=== PATIENT | male | born 1935 | race Caucasian/White ===

== ENCOUNTER 2016-04-07 11:55 | Inpatient (IN) | payer MEDICARE, OTHER ==
[2016-04-07] MEDS: NALOXONE 0.4 MG/ML 1 ML VIAL IV STA ×2 (12:45→13:15)
[2016-04-07] MEDS ORDERED: SODIUM CHLORIDE 0.9% 1,000 ML IV STA (13:08)
[2016-04-07] MEDS ORDERED: SODIUM CHLORIDE 0.9% 500 ML IV STA (13:08)
[2016-04-07] MEDS ORDERED: NALOXONE 0.4 MG/ML 10 ML VIAL IVP ONE (13:23)
--- NOTE | 2016-04-07 13:32 | ED ---
General Adult HPI - General Chief complaint: Weakness Stated complaint: Weakness, Fall Time Seen by Provider: 04/07/16 12:26 Source: patient, EMS, RN notes reviewed Mode of arrival: EMS Limitations: no limitations - History of Present Illness Initial comments: Chief complaint history of present illness this is an 81-year-old male was brought emergency room by EMS. They were called to the house twice by him because he slipped out of his wheelchair. They put him back in the wheelchair first time. The second time he decided come the hospital. They denied giving him any narcotics. Around emergency room the patient was very somnolent. Eyes pinpoint. He received IV Narcan which did significantly improve his mental status. But his initial complaints to EMS was weakness. The patient lives by himself he's recently moved here from another area. No old charts are available. And at this time the patient is not fully capable of answering all questions. The patient states he lives in this general area eventually did mention [place]. We called [facility] who sent his records he been there several times he was living in a [place] that general area. EKG from the date while in hospital in October of last year similar to today's EKG. Labs were essentially within normal limits there is they are here. - Related Data Home Medications Medication Instructions Recorded Confirmed Unable To Assess [Unable to Assess] 04/07/16 04/07/16 Allergies Allergy/AdvReac Type Severity Reaction Status Date / Time No Known Allergies Allergy Verified 04/07/16 12:43 Review of Systems ROS Statement: Those systems with pertinent positive or pertinent negative responses have been documented in the HPI. ROS Other: All systems not noted in ROS Statement are negative. Past Medical History Past Medical History: Unable to Obtain Additional Past Medical History / Comment(s): Parkinsons History of Any Multi-Drug Resistant Organisms: Unobtainable Past Surgical History: Unable to Obtain Past Psychological History: Unable to Obtain Smoking Status: Unknown if ever smoked Past Alcohol Use History: Unable to Obtain Past Drug Use History: Unable to Obtain General Exam Limitations: no limitations Course Vital Signs 04/07/16 12:11 Temperature 97.4 F L Pulse Rate 62 Respiratory 18 Rate Blood Pressure 164/79 O2 Sat by Pulse 97 Oximetry Medical Decision Making - Medical Decision Making Medical decision making patient's white count 7.2 hemoglobin 12 hematocrit 38 and INR 1.2, potassium 4.3, BUN 18 creatinine 0.6 GFR greater than 60. Glucose 112. Urine shows 57 white cells large leuk esterase positive drug triage positive for benzodiazepines. The patient's eyes were pinpoint he was given IV Narcan on 2 occasions both of which made him more alert. CT the brain was done and reviewed by radiologist entire report was reviewed his final impression is age-related atrophy and chronic small vessel ischemic changes but acute intracranial processes seen at this time. As read by Dr. Flores X-ray of the chest was done and reviewed by radiologist his impression is a slightly elevated right hemidiaphragm is present. There is no focal airspace opacity, pleural effusion, or pneumothorax seen. Cardiac silhouette size is within the normal limits with atherosclerotic change in the aortic knob. The osseous structures are demineralized. There is a multilevel spurring in the lower thoracic spine. Impression; no acute cardiopulmonary process. As read by Dr. posada Patient is more alert now after IV hydration and Narcan. Urine drug triage was negative for opiates though. Was positive benzodiazepines. Patient denies taking any pills whatsoever left alone benzodiazepines. Patient had IV Levaquin started. Easily arousable states he's not in pain states he knows where he is, "" in the hospital. - Lab Data Result diagrams: 04/07/16 12:45 04/07/16 12:45 Lab Results 04/07/16 04/07/16 04/07/16 Range/Units 12:45 12:45 12:45 WBC 7.2 (3.8-10.6) k/uL RBC 3.81 L (4.30-5.90) m/uL Hgb 12.5 L (13.0-17.5) gm/dL Hct 38.4 L (39.0-53.0) % MCV 100.9 H (80.0-100.0) fL MCH 32.9 (25.0-35.0) pg MCHC 32.6 (31.0-37.0) g/dL RDW 12.4 (11.5-15.5) % Plt Count 167 (150-450) k/uL Neutrophils % 79 % Lymphocytes % 13 % Monocytes % 7 % Eosinophils % 0 % Basophils % 0 % Neutrophils # 5.7 (1.3-7.7) k/uL Lymphocytes # 0.9 L (1.0-4.8) k/uL Monocytes # 0.5 (0-1.0) k/uL Eosinophils # 0.0 (0-0.7) k/uL Basophils # 0.0 (0-0.2) k/uL PT (9.0-12.0) sec INR (<1.1) APTT (22.0-30.0) sec Sodium 143 (137-145) mmol/L Potassium 4.3 (3.5-5.1) mmol/L Chloride 106 (98-107) mmol/L Carbon Dioxide 27 (22-30) mmol/L Anion Gap 10 mmol/L BUN 18 (9-20) mg/dL Creatinine 0.60 L (0.66-1.25) mg/dL Est GFR (MDRD) Af Amer >60 (>60 ml/min/1.73 sqM) Est GFR (MDRD) Non-Af >60 (>60 ml/min/1.73 sqM) Glucose 112 H (74-99) mg/dL Plasma Lactic Acid Ever (0.7-2.0) mmol/L Calcium 10.1 (8.4-10.2) mg/dL Magnesium 2.0 (1.6-2.3) mg/dL Total Bilirubin 0.8 (0.2-1.3) mg/dL AST 27 (17-59) U/L ALT 33 (21-72) U/L Alkaline Phosphatase 98 (38-126) U/L Total Creatine Kinase 155 (55-170) U/L CK-MB (CK-2) 4.6 H* (0.0-2.4) ng/mL CK-MB (CK-2) Rel Index 3.0 Troponin I <0.012 (0.000-0.034) ng/mL Total Protein 6.8 (6.3-8.2) g/dL Albumin 3.8 (3.5-5.0) g/dL TSH 0.488 (0.465-4.680) mIU/L Urine Color Urine Appearance (Clear) Urine pH (5.0-8.0) Ur Specific [place] (1.001-1.035) Urine Protein (Negative) Urine Glucose (UA) (Negative) Urine Ketones (Negative) Urine Blood (Negative) Urine Nitrate (Negative) Urine Bilirubin (Negative) Urine Urobilinogen (<2.0) mg/dL Ur Leukocyte Esterase (Negative) Urine WBC (0-5) /hpf Urine Bacteria (None) /hpf Urine Mucus (None) /hpf Urine Opiates Screen (NotDetected) Ur Oxycodone Screen (NotDetected) Urine Methadone Screen (NotDetected) Ur Propoxyphene Screen (NotDetected) Ur Barbiturates Screen (NotDetected) U Tricyclic Antidepress (NotDetected) Ur Phencyclidine Scrn (NotDetected) Ur Amphetamines Screen (NotDetected) U Methamphetamines Scrn (NotDetected) U Benzodiazepines Scrn (NotDetected) Urine Cocaine Screen (NotDetected) U Marijuana (THC) Screen (NotDetected) 04/07/16 04/07/16 04/07/16 Range/Units 12:45 12:45 13:50 WBC (3.8-10.6) k/uL RBC (4.30-5.90) m/uL Hgb (13.0-17.5) gm/dL Hct (39.0-53.0) % MCV (80.0-100.0) fL MCH (25.0-35.0) pg MCHC (31.0-37.0) g/dL RDW (11.5-15.5) % Plt Count (150-450) k/uL Neutrophils % % Lymphocytes % % Monocytes % % Eosinophils % % Basophils % % Neutrophils # (1.3-7.7) k/uL Lymphocytes # (1.0-4.8) k/uL Monocytes # (0-1.0) k/uL Eosinophils # (0-0.7) k/uL Basophils # (0-0.2) k/uL PT 11.6 (9.0-12.0) sec INR 1.2 (<1.1) APTT 27.3 (22.0-30.0) sec Sodium (137-145) mmol/L Potassium (3.5-5.1) mmol/L Chloride (98-107) mmol/L Carbon Dioxide (22-30) mmol/L Anion Gap mmol/L BUN (9-20) mg/dL Creatinine (0.66-1.25) mg/dL Est GFR (MDRD) Af Amer (>60 ml/min/1.73 sqM) Est GFR (MDRD) Non-Af (>60 ml/min/1.73 sqM) Glucose (74-99) mg/dL Plasma Lactic Acid Ever 1.4 (0.7-2.0) mmol/L Calcium (8.4-10.2) mg/dL Magnesium (1.6-2.3) mg/dL Total Bilirubin (0.2-1.3) mg/dL AST (17-59) U/L ALT (21-72) U/L Alkaline Phosphatase (38-126) U/L Total Creatine Kinase (55-170) U/L CK-MB (CK-2) (0.0-2.4) ng/mL CK-MB (CK-2) Rel Index Troponin I (0.000-0.034) ng/mL Total Protein (6.3-8.2) g/dL Albumin (3.5-5.0) g/dL TSH (0.465-4.680) mIU/L Urine Color Urine Appearance (Clear) Urine pH (5.0-8.0) Ur Specific [place] (1.001-1.035) Urine Protein (Negative) Urine Glucose (UA) (Negative) Urine Ketones (Negative) Urine Blood (Negative) Urine Nitrate (Negative) Urine Bilirubin (Negative) Urine Urobilinogen (<2.0) mg/dL Ur Leukocyte Esterase (Negative) Urine WBC (0-5) /hpf Urine Bacteria (None) /hpf Urine Mucus (None) /hpf Urine Opiates Screen Not Detected (NotDetected) Ur Oxycodone Screen Not Detected (NotDetected) Urine Methadone Screen Not Detected (NotDetected) Ur Propoxyphene Screen Not Detected (NotDetected) Ur Barbiturates Screen Not Detected (NotDetected) U Tricyclic Antidepress Not Detected (NotDetected) Ur Phencyclidine Scrn Not Detected (NotDetected) Ur Amphetamines Screen Not Detected (NotDetected) U Methamphetamines Scrn Not Detected (NotDetected) U Benzodiazepines Scrn Detected H (NotDetected) Urine Cocaine Screen Not Detected (NotDetected) U Marijuana (THC) Screen Not Detected (NotDetected) 04/07/16 Range/Units 13:50 WBC (3.8-10.6) k/uL RBC (4.30-5.90) m/uL Hgb (13.0-17.5) gm/dL Hct (39.0-53.0) % MCV (80.0-100.0) fL MCH (25.0-35.0) pg MCHC (31.0-37.0) g/dL RDW (11.5-15.5) % Plt Count (150-450) k/uL Neutrophils % % Lymphocytes % % Monocytes % % Eosinophils % % Basophils % % Neutrophils # (1.3-7.7) k/uL Lymphocytes # (1.0-4.8) k/uL Monocytes # (0-1.0) k/uL Eosinophils # (0-0.7) k/uL Basophils # (0-0.2) k/uL PT (9.0-12.0) sec INR (<1.1) APTT (22.0-30.0) sec Sodium (137-145) mmol/L Potassium (3.5-5.1) mmol/L Chloride (98-107) mmol/L Carbon Dioxide (22-30) mmol/L Anion Gap mmol/L BUN (9-20) mg/dL Creatinine (0.66-1.25) mg/dL Est GFR (MDRD) Af Amer (>60 ml/min/1.73 sqM) Est GFR (MDRD) Non-Af (>60 ml/min/1.73 sqM) Glucose (74-99) mg/dL Plasma Lactic Acid Ever (0.7-2.0) mmol/L Calcium (8.4-10.2) mg/dL Magnesium (1.6-2.3) mg/dL Total Bilirubin (0.2-1.3) mg/dL AST (17-59) U/L ALT (21-72) U/L Alkaline Phosphatase (38-126) U/L Total Creatine Kinase (55-170) U/L CK-MB (CK-2) (0.0-2.4) ng/mL CK-MB (CK-2) Rel Index Troponin I (0.000-0.034) ng/mL Total Protein (6.3-8.2) g/dL Albumin (3.5-5.0) g/dL TSH (0.465-4.680) mIU/L Urine Color Yellow Urine Appearance Cloudy (Clear) Urine pH 7.0 (5.0-8.0) Ur Specific [place] 1.012 (1.001-1.035) Urine Protein Negative (Negative) Urine Glucose (UA) Negative (Negative) Urine Ketones Trace H (Negative) Urine Blood Negative (Negative) Urine Nitrate Positive (Negative) Urine Bilirubin Negative (Negative) Urine Urobilinogen <2.0 (<2.0) mg/dL Ur Leukocyte Esterase Large H (Negative) Urine WBC 57 H (0-5) /hpf Urine Bacteria Rare H (None) /hpf Urine Mucus Rare H (None) /hpf Urine Opiates Screen (NotDetected) Ur Oxycodone Screen (NotDetected) Urine Methadone Screen (NotDetected) Ur Propoxyphene Screen (NotDetected) Ur Barbiturates Screen (NotDetected) U Tricyclic Antidepress (NotDetected) Ur Phencyclidine Scrn (NotDetected) Ur Amphetamines Screen (NotDetected) U Methamphetamines Scrn (NotDetected) U Benzodiazepines Scrn (NotDetected) Urine Cocaine Screen (NotDetected) U Marijuana (THC) Screen (NotDetected) Disposition Clinical Impression: Urinary tract infection, History of Parkinson's disease, Weakness generalized Disposition: ADMITTED IP TO THIS [facility] Condition: Fair
--- NOTE | 2016-04-07 13:36 | XR ---
EXAMINATION TYPE: XR chest 2V DATE OF EXAM: 04/07/2016 1:31 PM COMPARISON: NONE HISTORY: Weakness and falls TECHNIQUE: Frontal and lateral views of the chest are obtained. FINDINGS: Slightly elevated right hemidiaphragm is present. There is no focal air space opacity, ple ural effusion, or pneumothorax seen. The cardiac silhouette size is within normal limits with athero sclerotic change in aortic knob. The osseous structures are demineralized. There is multilevel spur ring in the lower thoracic spine. IMPRESSION: No acute cardiopulmonary process.
[2016-04-07 13:39] LABS: Basophils % (A) 0 %; CH 32.9; CHCM 32.7; Eosinophils % (A) 0 %; HCT 38.4 % (39.0-53.0); HDW 2.16; HGB 12.5 gm/dL (13.0-17.5); Luc # (Auto) 0.11; Luc % (Auto) 2; Lymphocytes # (A) 0.9 k/uL (1.0-4.8); Lymphocytes % (A) 13 %; MCH 32.9 pg (25.0-35.0); MCHC 32.6 g/dL (31.0-37.0); MCV 100.9 fL (80.0-100.0); Mean Platelet Volume 7.3; Monocytes # (A) 0.5 k/uL (0-1.0); Monocytes % (A) 7 %; Neutrophils # (A) 5.7 k/uL (1.3-7.7); Neutrophils % (A) 79 %; RBC 3.81 m/uL (4.30-5.90); RDW 12.4 % (11.5-15.5); WBC 7.2 k/uL (3.8-10.6); WBC (Perox) 7.82
[2016-04-07 13:48] LABS: INR 1.2 (<1.1); Partial Thromboplastin Time 27.3 sec (22.0-30.0); Prothrombin Time 11.6 sec (9.0-12.0)
[2016-04-07 13:55] LABS: ALT 33 U/L (21-72); AST 27 U/L (17-59); Alkaline Phosphatase 98 U/L (38-126); Anion Gap 10 mmol/L; Blood Urea Nitrogen 18 mg/dL (9-20); Calcium 10.1 mg/dL (8.4-10.2); Carbon Dioxide 27 mmol/L (22-30); Chloride 106 mmol/L (98-107); Glucose 112 mg/dL (74-99); Non-African American GFR(MDRD) >60 (>60 ml/min/1.73 sqM); Sodium 143 mmol/L (137-145); Total Bilirubin 0.8 mg/dL (0.2-1.3); Total Protein 6.8 g/dL (6.3-8.2)
[2016-04-07 13:56] LABS: Potassium 4.3 mmol/L (3.5-5.1)
[2016-04-07 14:09] LABS: Creatine Kinase 155 U/L (55-170)
[2016-04-07 14:16] LABS: Appearance,Urine Cloudy (Clear); Bacteria,Urine Rare /hpf; Bilirubin,Urine Negative (Negative); Glucose,Urine (UA) Negative (Negative); Ketones,Urine Trace (Negative); Leukocyte Esterase,Urine Large (Negative); Mucus,Urine Rare /hpf; Nitrite,Urine Positive (Negative); Particle Count 7415; Protein,Urine Negative (Negative); Specific Gravity,Urine 1.012 (1.001-1.035); UA Billing (MACRO vs. MICRO) MICRO; Urobilinogen,Urine <2.0 mg/dL (<2.0); WBC,Urine 57 /hpf (0-5)
--- NOTE | 2016-04-07 14:19 | CT ---
EXAMINATION TYPE: CT brain wo con DATE OF EXAM: 04/07/2016 2:14 PM COMPARISON: NONE HISTORY: Altered LOC CT DLP: 2017.[address] of the brain was performed. Patient motion limits evaluation. The ventricles, basal cisterns and sulci overlying the cerebral convexities demonstrate mild to moder ate enlargement. There is no evidence for intracranial hemorrhage or sulcal effacement. There is decreased attenuation about the periventricular white matter and deep white matter of both c erebral hemispheres, compatible with chronic small vessel ischemia. Differential diagnosis does inclu de demyelination. No mass effects are seen.No midline shift. Osseous calvarium is intact. If symptoms persist consider MRI. IMPRESSION: 1. Age related atrophic and chronic small vessel ischemic change without acute intracranial process s een at this time.
[2016-04-07 14:23] LABS: Troponin I <0.012 ng/mL (0.000-0.034)
[2016-04-07 14:26] LABS: Creatine Kinase MB 4.6 ng/mL (0.0-2.4)
[2016-04-07] MEDS ORDERED: LEVOFLOXACIN 500MG-D5W PMX 500 MG in DEXTROSE/WATER 1 100ML.BAG IVPB STA (14:44)
[2016-04-07] MEDS ORDERED: NALOXONE 0.4 MG/ML 1 ML VIAL IV PRN (14:50)
[2016-04-07] MEDS: ACETAMINOPHEN TAB 325 MG TAB PO PRN (15:28)
[2016-04-07] MEDS: SODIUM CHLORIDE 0.9% 1,000 ML IV SCH (19:52)
[2016-04-08] MEDS: ACETAMINOPHEN TAB 325 MG TAB PO PRN (04:04)
[2016-04-08 07:59] LABS: Basophils % (A) 0 %; CHCM 32.6; Eosinophils % (A) 1 %; HDW 2.09; HGB 11.7 gm/dL (13.0-17.5); Luc # (Auto) 0.18; Luc % (Auto) 3; Lymphocytes # (A) 1.6 k/uL (1.0-4.8); Lymphocytes % (A) 23 %; MCHC 32.4 g/dL (31.0-37.0); MCV 101.7 fL (80.0-100.0); Mean Platelet Volume 7.3; Monocytes # (A) 0.6 k/uL (0-1.0); Monocytes % (A) 9 %; Neutrophils # (A) 4.6 k/uL (1.3-7.7); Neutrophils % (A) 65 %; RBC 3.54 m/uL (4.30-5.90); RDW 12.4 % (11.5-15.5); WBC 7.1 k/uL (3.8-10.6); WBC (Perox) 7.59
[2016-04-08 08:19] LABS: ALT 33 U/L (21-72); AST 27 U/L (17-59); Alkaline Phosphatase 90 U/L (38-126); Anion Gap 8 mmol/L; Blood Urea Nitrogen 13 mg/dL (9-20); Calcium 9.7 mg/dL (8.4-10.2); Carbon Dioxide 26 mmol/L (22-30); Chloride 107 mmol/L (98-107); Glucose 109 mg/dL (74-99); Non-African American GFR(MDRD) >60 (>60 ml/min/1.73 sqM); Potassium 3.9 mmol/L (3.5-5.1); Sodium 141 mmol/L (137-145); Total Bilirubin 0.9 mg/dL (0.2-1.3)
[2016-04-08] MEDS: SODIUM CHLORIDE 0.9% 1,000 ML IV SCH ×3 (08:24→16:21)
[2016-04-08] MEDS: PANTOPRAZOLE 40 MG/10 ML VIAL IV SCH (08:24)
[2016-04-08] MEDS: CARBIDOPA-LEVODOPA 25-100 MG 1 EACH TAB PO SCH ×3 (13:10→20:01)
[2016-04-08] MEDS: CARBIDOPA-LEVODOPA 10-100 MG 1 EACH TAB PO SCH (13:10)
[2016-04-08 14:04] VITALS: BMI 22.4
[2016-04-08] MEDS: SERTRALINE 25 MG TAB PO SCH (20:01)
--- NOTE | 2016-04-08 21:11 | HP ---
DATE OF ADMISSION: 04/07/2016 CHIEF COMPLAINT: Weakness and a fall. HISTORY OF PRESENT ILLNESS: Mr. Ponce is an 81-year-old male with a past medical history of Parkinson disease, hypertension, was brought in by the EMS after having a fall at the house. The patient states that he was trying to take a wheelchair out of his closet and then he slipped and fell and states that he was not able to get help until 6 in the morning. He states he was lying there for a few hours. Patient denies having any loss of consciousness. No syncopal episodes. He states that he has Parkinson's disease and his gait has been affected and so had a fall. Patient denies having any fevers, chills, or rigors. No complaints of burning, micturition. No hematuria, dysuria. He denies having any abdominal pain, nausea, vomiting, or diarrhea. The patient denies having any chest pain. Patient denies having any shortness of breath. Patient states that his Parkinson's disease has been causing problems for him and that he has problems with his gait. On review of systems: All 13 review of systems are done and negative except for ones mentioned in the HPI. Past medical history significant for Parkinson's disease. ALLERGIES: No known drug allergies. Patient's home medications: 1. Tylenol 325 mg 650 p.o. q8h p.r.n. for pain. 2. Tramadol 50 mg 1 tablet q.6 hours p.r.n. for pain. 3. Flomax 0.4 mg p.o. daily. 4. Milk of magnesia. 5. Glucosamine Chondroitin 2 tablets p.o. daily. 6. Colace 100 mg p.o. b.i.d. 7. Carbidopa, levodopa 2500 mg p.o. 4 times a day. 8. ( ) 100 mg p.o. daily. 9. Amlodipine 2.5 mg p.o. daily. 10. Xanax 0.5 mg p.o. daily. 11. Zoloft 75 mg p.o. q.h.s. Surgical history positive for hernia repair. SOCIAL HISTORY: Denies having any history of smoking or alcohol abuse. FAMILY HISTORY: Denies having any history of hypertension or diabetes. On examination, patient's vital signs temperature 98.3, heart rate 63, respiratory rate is 16, blood pressure 100/69, saturating at 96% on room air. GENERAL EXAMINATION: Elderly male lying in bed, appears to be no acute distress. Has some tremors. When he was trying to eat his food ( ). HEAD: Atraumatic, normocephalic. EYES: Pupils, round, and reactive to light. NECK: No JVD. No thyromegaly. CARDIOVASCULAR: S1, S2 are heard. LUNGS: Bilateral breath sounds are positive. No wheeze or crackles. ABDOMEN: Soft, nontender. Bowel sounds positive. EXTREMITIES: No edema. No cyanosis, no clubbing. Peripheral pulses are felt. IT TECHNICAL SUPPORT SPECIALIST: Alert, awake, oriented x3. Has tremors. No focal deficits. PSYCHIATRIC: Appropriate mood and affect. Patient's labs: White count of 7.2, hemoglobin 11.7, platelets 155, sodium 141, potassium 3.9, chloride 107, bicarb 26, BUN 13, creatinine 0.59, urinary tract examination shows trace ketones, positive for nitrites and large leukocyte esterase and 57 WBCs. Patient also had a CT of the head showing no acute process but small vessel ischemic changes and a chest x-ray showing no acute cardiopulmonary process. ASSESSMENT AND PLAN: 1. Generalized weakness can be secondary to urinary tract infection. 2. Fall can be secondary to his weakness/Parkinson disease. 3. History of Parkinson's disease. 4. History of hypertension. 5. History of gastroesophageal reflux disease. 6. History of anxiety, depression unspecified. 7. Benign prostatic hypertrophy. PLAN: The plan is to continue the patient on IV fluids, continue with levofloxacin. We will resume his home medications and further recommendations to follow depending on the progress of the patient.
[2016-04-08] MEDS: LEVOFLOXACIN 500 MG TAB PO SCH (21:23)
[2016-04-09 07:21] LABS: Basophils % (A) 0 %; CHCM 32.8; Eosinophils # (A) 0.1 k/uL (0-0.7); Eosinophils % (A) 2 %; HCT 36.9 % (39.0-53.0); HDW 2.12; Luc # (Auto) 0.18; Luc % (Auto) 2; Lymphocytes # (A) 1.9 k/uL (1.0-4.8); Lymphocytes % (A) 22 %; MCH 32.9 pg (25.0-35.0); MCHC 32.5 g/dL (31.0-37.0); MCV 101.2 fL (80.0-100.0); Mean Platelet Volume 7.5; Monocytes # (A) 0.6 k/uL (0-1.0); Monocytes % (A) 7 %; Neutrophils # (A) 5.7 k/uL (1.3-7.7); Neutrophils % (A) 66 %; RBC 3.64 m/uL (4.30-5.90); RDW 12.5 % (11.5-15.5); WBC 8.6 k/uL (3.8-10.6); WBC (Perox) 9.03
[2016-04-09 08:04] LABS: Anion Gap 8 mmol/L; Blood Urea Nitrogen 11 mg/dL (9-20); Calcium 9.7 mg/dL (8.4-10.2); Carbon Dioxide 26 mmol/L (22-30); Chloride 105 mmol/L (98-107); Glucose 110 mg/dL (74-99); Non-African American GFR(MDRD) >60 (>60 ml/min/1.73 sqM); Sodium 139 mmol/L (137-145)
[2016-04-09] MEDS: amLODIPine 2.5 MG TAB PO SCH (08:37)
[2016-04-09] MEDS: PANTOPRAZOLE 40 MG/10 ML VIAL IV SCH (08:37)
[2016-04-09] MEDS: CARBIDOPA-LEVODOPA 10-100 MG 1 EACH TAB PO SCH (08:37)
[2016-04-09] MEDS: CARBIDOPA-LEVODOPA 25-100 MG 1 EACH TAB PO SCH ×4 (08:38→22:44)
[2016-04-09] MEDS: SODIUM CHLORIDE 0.9% 1,000 ML IV SCH ×2 (08:38→22:44)
[2016-04-09] MEDS: TAMSULOSIN 0.4 MG CAP.ER.24H PO SCH (08:38)
[2016-04-09] MEDS: ACETAMINOPHEN TAB 325 MG TAB PO PRN (16:13)
[2016-04-09] MEDS: LEVOFLOXACIN 500 MG TAB PO SCH (22:44)
[2016-04-09] MEDS: SERTRALINE 25 MG TAB PO SCH (22:44)
[2016-04-10] MEDS: SODIUM CHLORIDE 0.9% 1,000 ML IV SCH (03:40)
[2016-04-10] MEDS: ACETAMINOPHEN TAB 325 MG TAB PO PRN (07:31)
[2016-04-10] MEDS: CARBIDOPA-LEVODOPA 25-100 MG 1 EACH TAB PO SCH ×4 (07:32→21:31)
[2016-04-10] MEDS: amLODIPine 2.5 MG TAB PO SCH (07:32)
[2016-04-10] MEDS: PANTOPRAZOLE 40 MG/10 ML VIAL IV SCH (07:32)
[2016-04-10] MEDS: CARBIDOPA-LEVODOPA 10-100 MG 1 EACH TAB PO SCH (07:32)
[2016-04-10] MEDS: TAMSULOSIN 0.4 MG CAP.ER.24H PO SCH (07:32)
--- NOTE | 2016-04-10 16:15 | PN ---
INTERVAL HISTORY: Mr. Ponce is an 81-year-old male with a past medical history of disease, hypertension, ( ) brought into the ER by EMS after having a fall at the house. Patient was lying on the floor for a few hours before he could get some help. Patient states that he did not lose any consciousness, but it was a fall as his gait has been affected due to his Parkinson disease. Patient does have some clinical signs and symptoms of UTI and so currently being treated with Levaquin. Patient states that he feels much better today. REVIEW OF SYSTEMS: CONSTITUTIONAL: Denies having any fevers or rigors. RESPIRATORY: No cough. No difficulty in breathing. GI: No abdominal pain, nausea, vomiting, or diarrhea. : No dysuria or hematuria. The patient's medications have been reviewed. On examination, patient's vital signs temperature 98.1, heart rate 16, blood pressure 124/64, saturating at 95% on room air. GENERAL EXAMINATION: The patient is an elderly male lying in bed, appears to be no acute distress. He has some tremors. HEAD: Atraumatic, normocephalic. EYES: Pupils equal, round and reactive to light. NECK: No JVD. No thyromegaly. CARDIOVASCULAR: S1, S2 heard. LUNGS: Bilateral breath sounds are positive. No wheeze, crackles. ABDOMEN: Soft, nontender. Bowel sounds positive. EXTREMITIES: No edema. No cyanosis, no clubbing. FOOD SERVICE TEAM MEMBER: Alert, and alert, oriented x3. No focal deficits. Has tremors. PSYCHIATRIC: Appropriate mood and affect. Patient's labs: White count of 8.6, hemoglobin is 12, platelets 152. Sodium 139, potassium 4, chloride 105, bicarb 26, BUN 11, creatinine 0.56, albumin 3.1. ASSESSMENT AND PLAN: 1. Generalized weakness can be secondary to urinary tract infection. 2. Fall secondary to his weakness/Parkinson disease. 3. History of Parkinson disease. 4. History of hypertension. 5. History of Gastroesophageal reflux disease. 6. History of anxiety/depression unspecified. 7. History of benign prostatic hypertrophy. PLAN: The plan is to continue the patient on IV fluids. Continue with levofloxacin. Continue home medications and patient is back to his baseline. So would consult social services analyst for possible placement and further recommendations to follow depending on the progress of the patient.
[2016-04-10] MEDS: SERTRALINE 25 MG TAB PO SCH (21:31)
[2016-04-10] MEDS: LEVOFLOXACIN 500 MG TAB PO SCH (21:31)
--- NOTE | 2016-04-11 08:21 | PN ---
DATE OF SERVICE: 04/10/2016 INTERVAL HISTORY: Mr. Ponce is an 81-year-old male with past medical history of hypertension brought into the ER by EMS after having a fall at the house. The patient was lying on the floor for few hours before he could get some help. The patient states he did not lose any consciousness but fell as he was having gait issues due to Parkinson's disease. The patient does have clinical signs and symptoms of urinary tract infection and currently being treated with Levaquin. Today, the patient says that he feels much better today. REVIEW OF SYSTEMS: CONSTITUTIONAL: Denies having any fevers, chills, or rigors. RESPIRATORY: No cough. No difficulty in breathing. GI: No nausea, vomiting, abdominal pain or diarrhea. : No dysuria or hematuria. The patient's medications have been reviewed. On examination, the patient's vital signs temperature 98.2, heart rate 81, respiratory rate 17, blood pressure 104/59, saturating at 93% on room air. GENERAL EXAMINATION: Patient is an elderly male lying in bed, appears to be no acute distress. He has some tremors. HEAD: Atraumatic, normocephalic. EYES: Pupils equal, round and reactive to light. NECK: No JVD . No thyromegaly. CARDIOVASCULAR: S1, S2 muffled. RESPIRATORY: Bilateral breath sounds are positive. No wheeze or crackles. ABDOMEN: Soft, nontender. Bowel sounds positive. EXTREMITIES: No edema. No cyanosis. No clubbing. CENTRAL NERVOUS SYSTEM: Awake, alert and oriented times three. No focal deficits. Hand tremors. PSYCHIATRY: Appropriate mood and affect. LABS: White count of 8.6, hemoglobin 12, platelets of 152. Sodium 139, potassium 4, chloride 105, bicarb 26, BUN 11, creatinine 0.56. ASSESSMENT AND PLAN: 1. Generalized weakness secondary to urinary tract infection. 2. Fall, acute weakness/Parkinson disease. 3. History of Parkinson disease. 4. Hypertension. 5. Gastroesophageal reflux disease. 6. History of anxiety/depression unspecified. 7. History of benign prostatic hypertrophy. PLAN: The plan is to continue the patient on levofloxacin. He showed significant improvement. The patient is back to his baseline. script worker on board for possible placement and ( ) to follow depending on the progress of the patient.
[2016-04-11] MEDS: amLODIPine 2.5 MG TAB PO SCH (10:05)
[2016-04-11] MEDS: CARBIDOPA-LEVODOPA 10-100 MG 1 EACH TAB PO SCH (10:05)
[2016-04-11] MEDS: CARBIDOPA-LEVODOPA 25-100 MG 1 EACH TAB PO SCH ×4 (10:05→20:28)
[2016-04-11] MEDS: TAMSULOSIN 0.4 MG CAP.ER.24H PO SCH (10:05)
[2016-04-11] MEDS: PANTOPRAZOLE 40 MG TABLET PO SCH (10:07)
--- NOTE | 2016-04-11 11:18 | XR ---
EXAMINATION TYPE: XR shoulder complete LT DATE OF EXAM: 04/11/2016 11:02 AM COMPARISON: NONE HISTORY: 78-year-old male right shoulder pain after fall TECHNIQUE: 3 views FINDINGS: There is moderate degenerative joint space narrowing and marginal spurring at the AC joint. There is some narrowing of the subacromial space. Some bony irregularity at the greater tuberosity could refle ct underlying chronic rotator cuff tendinopathy. Minimal degenerative spurring at the inferior chetan l head. Visualized left hemithorax appears clear. No acute fracture or dislocation. IMPRESSION: 1. Some narrowing of the subacromial space. Correlate for possible underlying rotator cuff tear. 2. Moderate AC joint osteoarthrosis. 3. No acute osseous abnormality seen.
[2016-04-11 11:31] LABS: Anion Gap 10 mmol/L; Blood Urea Nitrogen 15 mg/dL (9-20); Calcium 10.3 mg/dL (8.4-10.2); Carbon Dioxide 27 mmol/L (22-30); Chloride 103 mmol/L (98-107); Glucose 135 mg/dL (74-99); Non-African American GFR(MDRD) >60 (>60 ml/min/1.73 sqM); Potassium 4.1 mmol/L (3.5-5.1); Sodium 140 mmol/L (137-145)
--- NOTE | 2016-04-11 11:48 | DS ---
DATE OF ADMISSION: 04/07/2016 DATE OF DISCHARGE: An 81-year-old admitted secondary to urinary tract infection and patient has staph aureus in the urine which is pansensitive. Patient was started on levofloxacin. Patient will be discharged on levofloxacin. Patient is complaining of left shoulder pain. Obtained a left shoulder x-ray which showed severe osteoarthritis of the A/C joint with some narrowing of the subacromial space. Possibility of underlying rotator cuff tear for which patient will need orthopedic evaluation as an outpatient. Patient is otherwise clinically doing well, was quite weak definitely. Will definitely need physical therapy and subacute rehab. Patient is not appropriate to discharge home. Patient was seen and examined on the day of discharge. Vitals are stable. PHYSICAL EXAMINATION: GENERAL: The patient is alert and oriented x3, not in any acute distress. Well developed, well nourished. HEENT: Pupils are round and equally reacting to light. EOMI. No scleral icterus. No conjunctival pallor. Normocephalic, atraumatic. No pharyngeal erythema. No thyromegaly. CARDIOVASCULAR: S1 and S2 present. No murmurs, rubs, or gallops. PULMONARY: Chest is clear to auscultation, no wheezing or crackles. ABDOMEN: Soft, nontender, nondistended, normoactive bowel sounds. No palpable organomegaly. EXTREMITIES: No cyanosis, clubbing, or pedal edema. NEUROLOGICAL: Gross neurological examination did not reveal any focal deficits. SKIN: No rashes. MUSCULOSKELETAL: As described in HPI. FINAL DIAGNOSES: 1. Generalized weakness secondary to deconditioning and urinary tract infection. Patient urinary tract infection management as mentioned above. Patient has Parkinson's with possible early Lewy Body dementia. 2. Hypertension. 3. Gastroesophageal reflux disease. 4. Anxiety, depression. 5. Benign prostatic hypertrophy. Patient will be discharged today. Please refer to my depart summary for further details of discharge. Activity as per the facility. Regular diet. Follow up with Dr. Griffith or Dr. Hui in subacute rehab. Spent greater than 35 minutes in total discharge process.
[2016-04-11] MEDS: ACETAMINOPHEN TAB 325 MG TAB PO PRN (16:04)
[2016-04-11] MEDS: SERTRALINE 25 MG TAB PO SCH (20:27)
[2016-04-11] MEDS: LEVOFLOXACIN 500 MG TAB PO SCH (20:27)
[2016-04-11 20:56] VITALS: RESP 16
[2016-04-12] MEDS: ACETAMINOPHEN TAB 325 MG TAB PO PRN ×2 (00:21→20:06)
[2016-04-12] MEDS: TAMSULOSIN 0.4 MG CAP.ER.24H PO SCH (08:09)
[2016-04-12] MEDS: amLODIPine 2.5 MG TAB PO SCH (08:10)
[2016-04-12] MEDS: CARBIDOPA-LEVODOPA 25-100 MG 1 EACH TAB PO SCH ×4 (08:10→20:07)
[2016-04-12] MEDS: PANTOPRAZOLE 40 MG TABLET PO SCH (08:10)
[2016-04-12] MEDS: CARBIDOPA-LEVODOPA 10-100 MG 1 EACH TAB PO SCH (08:10)
[2016-04-12] MEDS: LEVOFLOXACIN 500 MG TAB PO SCH (20:07)
[2016-04-12] MEDS: SERTRALINE 25 MG TAB PO SCH (20:07)
[2016-04-13] MEDS: TAMSULOSIN 0.4 MG CAP.ER.24H PO SCH (07:38)
[2016-04-13] MEDS: CARBIDOPA-LEVODOPA 10-100 MG 1 EACH TAB PO SCH (07:39)
[2016-04-13] MEDS: PANTOPRAZOLE 40 MG TABLET PO SCH (07:39)
[2016-04-13] MEDS: CARBIDOPA-LEVODOPA 25-100 MG 1 EACH TAB PO SCH ×2 (07:39→12:20)
[2016-04-13] MEDS: amLODIPine 2.5 MG TAB PO SCH (07:39)
--- NOTE | 2016-04-13 07:39 | DS ---
DATE OF ADMISSION: 04/07/2016 DATE OF DISCHARGE: The patient was discharged from my service yesterday, but patient ended up staying because of some insurance issues and placement issues to rehab. The patient is no significant change compared to yesterday. Please refer to my dictation from yesterday as prognosis. No significant change in physical exam today compared to yesterday and patient will be discharged today in stable medical condition to subacute rehab Please refer to my dictation of discharge summary from yesterday for further details.
[2016-04-13 08:17] VITALS: BP 117/66; PULSE 73; TEMP 98.3
--- NOTE | 2016-04-13 11:30 | PN ---
DATE OF SERVICE: 04/12/2016 An 81-year-old admitted with UTI with staph aureus and pansensitive. The patient is being discharged on levofloxacin. Patient does have osteoarthritis and rotator cuff tear on the left shoulder for which patient will need to follow with Orthopedic Surgery as an outpatient. Patient is supposed to go to subacute rehabilitation and awaiting subacute rehabilitation disposition. REVIEW OF SYSTEMS: CARDIOVASCULAR: No chest pain, no orthopnea, no PND, no palpitations. PULMONARY: Denied any shortness of breath. No cough or hemoptysis. GASTROINTESTINAL: No diarrhea, nausea or vomiting. No abdominal pain. Normoactive bowel sounds. NEUROLOGIC: No headaches, no weakness, no numbness. Medications were reviewed. PHYSICAL EXAMINATION: VITAL SIGNS: Temperature 97.6, pulse of 69, respiratory rate 16, blood pressure 130/70, saturating at 96% on room air. GENERAL: The patient is alert and oriented x3, not in any acute distress. Well developed, well nourished. HEENT: Pupils are round and equally reacting to light. EOMI. No scleral icterus. No conjunctival pallor. Normocephalic, atraumatic. No pharyngeal erythema. No thyromegaly. CARDIOVASCULAR: S1 and S2 present. No murmurs, rubs, or gallops. PULMONARY: Chest is clear to auscultation, no wheezing or crackles. ABDOMEN: Soft, nontender, nondistended, normoactive bowel sounds. No palpable organomegaly. MUSCULOSKELETAL: No joint swelling or deformity. EXTREMITIES: No cyanosis, clubbing, or pedal edema. NEUROLOGICAL: Gross neurological examination did not reveal any focal deficits. SKIN: No rashes. LABORATORY DATA: Basic metabolic profile essentially within normal limits. ASSESSMENT AND PLAN: 1. Generalized weakness secondary to deconditioning. 2. Hypertension. 3. Urinary tract infection. 4. Parkinson's with possibly Lewy Body dementia. 5. Gastroesophageal reflux disease. 6. Anxiety, depression. 7. Benign prostatic hypertrophy. Plan is to continue his present medications. Patient will need to go to subacute rehab. The patient was declined from [facility], although patient is not good to go home or [facility] home at this point of time. We will look for any alternative subacute rehabilitation places for his discharge. The patient was actually discharged couple days ago on the , but still did not go because of the insurance issues, placement issues and social issues.
[2016-04-13] MEDS: ACETAMINOPHEN TAB 325 MG TAB PO PRN (15:21)
--- NOTE | 2016-04-13 22:13 | DS ---
DATE OF ADMISSION: 04/07/2016 DATE OF DISCHARGE: 04/13/2016 Patient is awaiting disposition to subacute rehabilitation. Patient was declined by [facility] because of some insurance issues and Medicaid criteria. [facility] and [facility] are evaluating for appropriate disposition. Once that is figured out, patient will be discharged. Please refer to my discharge summary from a couple days ago for further details without any changes, as there are no changes since then in his medical problems and management of medical problems.
== END 2016-04-13 15:42 | DRG 690 ==
LOC: EC 11:55 → 5MS5E 14:52
PROVIDERS: ADMIT Internal Medicine; ATTEND Internal Medicine
DX: N39.0 Urinary tract infection, site not specified (principal); G31.83 Neurocognitive disorder with Lewy bodies; F02.80 Dementia in other diseases classified elsewhere, unspecified severity, without behavioral disturbance, psychotic disturbance, mood disturbance, and anxiety; I10 Essential (primary) hypertension; B95.8 Unspecified staphylococcus as the cause of diseases classified elsewhere; F32.9 Major depressive disorder, single episode, unspecified; F41.9 Anxiety disorder, unspecified; I70.0 Atherosclerosis of aorta; K21.9 Gastro-esophageal reflux disease without esophagitis; M19.90 Unspecified osteoarthritis, unspecified site; M25.70 Osteophyte, unspecified joint; N40.0 Benign prostatic hyperplasia without lower urinary tract symptoms; W01.0XXA Fall on same level from slipping, tripping and stumbling without subsequent striking against object, initial encounter; Z79.899 Other long term (current) drug therapy
CPT/HCPCS: 36415; 70450; 71020; 80048; 80053; 80306; 81001; 82550; 82553; 83605; 83735; 84443; 84484; 85025; 85610; 85730; 87077; 87086; 87186; 93005; 94760; 96361; 96365; 96375; 99285

== ENCOUNTER 2016-04-20 13:03 | Emergency (ER) | payer MEDICARE, OTHER ==
[2016-04-20 13:14] VITALS: RESP 18; TEMP 97.8
[2016-04-20] MEDS ORDERED: SODIUM CHLORIDE 0.9% 1,000 ML IV STA (13:44)
--- NOTE | 2016-04-20 13:47 | ED ---
General Adult HPI - General Chief complaint: Fall Stated complaint: Fall Time Seen by Provider: 04/20/16 13:10 Source: EMS, RN notes reviewed Mode of arrival: EMS Limitations: no limitations - History of Present Illness Initial comments: This is an 81-year-old male who presents to the emergency department after having fallen out of bed. Patient states he fell out of bed about 4:00 morning he did hit his head on the floor and he states he does not believe he lost consciousness. Patient states he had a little bit of neck pain but he believes he was just stiff from laying on the floor. Patient states lower back also is tender. Patient denies any chest pain back pain or palpitations. Patient denies any shortness of breath or difficulty breathing. Patient denies any abdominal pain. Patient denies any nausea or vomiting. Patient states he has no lower stomach pain he has no upper extremity pain either. Patient denies any recent fever or chills. - Related Data Home Medications Medication Instructions Recorded Confirmed Acetaminophen Tab [Tylenol] 650 mg PO Q8H PRN 04/07/16 04/20/16 Carbidopa-Levodopa 10-100 mg 1 tab PO DAILY 04/07/16 04/20/16 [Sinemet 10-100 mg] Carbidopa-Levodopa 25-100 mg 1 tab PO QID 04/07/16 04/20/16 [Sinemet 25-100 mg] Sertraline HCl [Zoloft] 75 mg PO HS 04/07/16 04/20/16 Tamsulosin HCl [Flomax] 0.4 mg PO DAILY 04/07/16 04/20/16 ALPRAZolam [Xanax] 0.5 mg PO Q8H PRN 04/20/16 04/20/16 Docusate [Colace] 100 mg PO BID 04/20/16 04/20/16 Sennosides [Senna] 8.6 mg PO DAILY PRN 04/20/16 04/20/16 amLODIPine [Norvasc] 2.5 mg PO DAILY 04/20/16 04/20/16 traMADol HCL [Ultram] 50 mg PO Q4HR PRN 04/20/16 04/20/16 Previous Rx's Medication Instructions Recorded Levofloxacin [Levaquin] 500 mg PO HS #5 tab 04/11/16 Allergies Allergy/AdvReac Type Severity Reaction Status Date / Time No Known Allergies Allergy Verified 04/20/16 13:19 Review of Systems ROS Statement: Those systems with pertinent positive or pertinent negative responses have been documented in the HPI. ROS Other: All systems not noted in ROS Statement are negative. Past Medical History Past Medical History: Prostate Disorder Additional Past Medical History / Comment(s): Parkinsons History of Any Multi-Drug Resistant Organisms: None Reported Past Surgical History: Hernia Repair Past Anesthesia/Blood Transfusion Reactions: No Reported Reaction Past Psychological History: Anxiety, Depression Smoking Status: Never smoker Past Alcohol Use History: None Reported Past Drug Use History: None Reported - Past Family History Father History Unknown: Yes General Exam - General Exam Comments Initial Comments: GENERAL: Patient is well-developed and well-nourished. Patient is nontoxic and well- hydrated and is in mild distress. ENT: Neck is soft and supple. No significant lymphadenopathy is noted. Oropharynx is clear. Dry mucous membranes. Patient has some tenderness to the neck on the left trapezius area. EYES: The sclera were anicteric and conjunctiva were pink and moist. Extraocular movements were intact and pupils were equal round and reactive to light. Eyelids were unremarkable. PULMONARY: Unlabored respirations. Good breath sounds bilaterally. No audible rales rhonchi or wheezing was noted. CARDIOVASCULAR: There is a regular rate and rhythm without any murmurs gallops or rubs. ABDOMEN: Soft and nontender with normal bowel sounds. No palpable organomegaly was noted. There is no palpable pulsatile mass. SKIN: Skin is clear with no lesions or rashes and otherwise unremarkable. NEUROLOGIC: Patient is alert and oriented x3. Cranial nerves II through XII are grossly intact. Motor and sensory are also intact. Normal speech, volume and content. Symmetrical smile. MUSCULOSKELETAL: Normal extremities with adequate strength and full range of motion. No lower extremity swelling or edema. No calf tenderness. Patient has some tenderness the lumbar spine region. LYMPHATICS: No significant lymphadenopathy is noted PSYCHIATRIC: Normal psychiatric evaluation. Limitations: no limitations Course Vital Signs 04/20/16 04/20/16 04/20/16 13:06 15:25 17:27 Temperature 97.8 F Pulse Rate 69 68 85 Respiratory 18 18 18 Rate Blood Pressure 154/74 138/93 155/73 O2 Sat by Pulse 96 95 93 L Oximetry Medical Decision Making - Medical Decision Making EKG shows normal sinus rhythm at 62 bpm KS interval 186 QRS is 88 QT interval 440 QTC is 446. Patient's EKG shows no ST segment abnormalities CT of the brain and C-spine are negative for fracture Chest x-ray shows no acute normalities. Lumbar sacral spine shows no acute abdomen. Patient was able to get up and walk around without any problem he states he feels good enough to go home and his nurse will check on him again in the morning. Patient ate a hearty meal here without problems. - Lab Data Result diagrams: 04/20/16 13:20 04/20/16 13:20 Lab Results 04/20/16 04/20/16 04/20/16 Range/Units 13:20 13:20 13:20 WBC 7.4 (3.8-10.6) k/uL RBC 3.81 L (4.30-5.90) m/uL Hgb 12.5 L (13.0-17.5) gm/dL Hct 39.0 (39.0-53.0) % MCV 102.4 H (80.0-100.0) fL MCH 32.7 (25.0-35.0) pg MCHC 32.0 (31.0-37.0) g/dL RDW 12.4 (11.5-15.5) % Plt Count 190 (150-450) k/uL Neutrophils % 82 % Lymphocytes % 12 % Monocytes % 5 % Eosinophils % 0 % Basophils % 0 % Neutrophils # 6.1 (1.3-7.7) k/uL Lymphocytes # 0.9 L (1.0-4.8) k/uL Monocytes # 0.4 (0-1.0) k/uL Eosinophils # 0.0 (0-0.7) k/uL Basophils # 0.0 (0-0.2) k/uL Macrocytosis Slight Sodium 143 (137-145) mmol/L Potassium 4.2 (3.5-5.1) mmol/L Chloride 104 (98-107) mmol/L Carbon Dioxide 28 (22-30) mmol/L Anion Gap 11 mmol/L BUN 16 (9-20) mg/dL Creatinine 0.60 L (0.66-1.25) mg/dL Est GFR (MDRD) Af Amer >60 (>60 ml/min/1.73 sqM) Est GFR (MDRD) Non-Af >60 (>60 ml/min/1.73 sqM) Glucose 103 H (74-99) mg/dL Calcium 10.4 H (8.4-10.2) mg/dL Total Bilirubin 0.9 (0.2-1.3) mg/dL AST 36 (17-59) U/L ALT 38 (21-72) U/L Alkaline Phosphatase 113 (38-126) U/L Total Creatine Kinase 219 H (55-170) U/L CK-MB (CK-2) 3.7 H* (0.0-2.4) ng/mL CK-MB (CK-2) Rel Index 1.7 Troponin I <0.012 (0.000-0.034) ng/mL Total Protein 7.0 (6.3-8.2) g/dL Albumin 3.7 (3.5-5.0) g/dL Urine Color Urine Appearance (Clear) Urine pH (5.0-8.0) Ur Specific [place] (1.001-1.035) Urine Protein (Negative) Urine Glucose (UA) (Negative) Urine Ketones (Negative) Urine Blood (Negative) Urine Nitrate (Negative) Urine Bilirubin (Negative) Urine Urobilinogen (<2.0) mg/dL Ur Leukocyte Esterase (Negative) Urine RBC (0-5) /hpf Urine WBC (0-5) /hpf Ur Squamous Epith Cells (0-4) /hpf Urine Mucus (None) /hpf 04/20/16 Range/Units 15:20 WBC (3.8-10.6) k/uL RBC (4.30-5.90) m/uL Hgb (13.0-17.5) gm/dL Hct (39.0-53.0) % MCV (80.0-100.0) fL MCH (25.0-35.0) pg MCHC (31.0-37.0) g/dL RDW (11.5-15.5) % Plt Count (150-450) k/uL Neutrophils % % Lymphocytes % % Monocytes % % Eosinophils % % Basophils % % Neutrophils # (1.3-7.7) k/uL Lymphocytes # (1.0-4.8) k/uL Monocytes # (0-1.0) k/uL Eosinophils # (0-0.7) k/uL Basophils # (0-0.2) k/uL Macrocytosis Sodium (137-145) mmol/L Potassium (3.5-5.1) mmol/L Chloride (98-107) mmol/L Carbon Dioxide (22-30) mmol/L Anion Gap mmol/L BUN (9-20) mg/dL Creatinine (0.66-1.25) mg/dL Est GFR (MDRD) Af Amer (>60 ml/min/1.73 sqM) Est GFR (MDRD) Non-Af (>60 ml/min/1.73 sqM) Glucose (74-99) mg/dL Calcium (8.4-10.2) mg/dL Total Bilirubin (0.2-1.3) mg/dL AST (17-59) U/L ALT (21-72) U/L Alkaline Phosphatase (38-126) U/L Total Creatine Kinase (55-170) U/L CK-MB (CK-2) (0.0-2.4) ng/mL CK-MB (CK-2) Rel Index Troponin I (0.000-0.034) ng/mL Total Protein (6.3-8.2) g/dL Albumin (3.5-5.0) g/dL Urine Color Yellow Urine Appearance Clear (Clear) Urine pH 5.5 (5.0-8.0) Ur Specific [place] 1.013 (1.001-1.035) Urine Protein Negative (Negative) Urine Glucose (UA) Negative (Negative) Urine Ketones 2+ H (Negative) Urine Blood Trace H (Negative) Urine Nitrate Negative (Negative) Urine Bilirubin Negative (Negative) Urine Urobilinogen <2.0 (<2.0) mg/dL Ur Leukocyte Esterase Trace H (Negative) Urine RBC 6 H (0-5) /hpf Urine WBC 8 H (0-5) /hpf Ur Squamous Epith Cells <1 (0-4) /hpf Urine Mucus Rare H (None) /hpf Disposition Clinical Impression: Fall, Lumbar strain Disposition: HOME SELF-CARE Instructions: Fall Prevention for Older Adults (ED) Referrals: None,Stated [Primary Care Provider] - 1-2 days Time of Disposition: 17:55
[2016-04-20 14:06] LABS: Basophils % (A) 0 %; CH 33.6; Eosinophils % (A) 0 %; HDW 2.16; HGB 12.5 gm/dL (13.0-17.5); Luc # (Auto) 0.08; Luc % (Auto) 1; Lymphocytes # (A) 0.9 k/uL (1.0-4.8); Lymphocytes % (A) 12 %; MCH 32.7 pg (25.0-35.0); MCV 102.4 fL (80.0-100.0); Macrocytosis Slight; Mean Platelet Volume 8.2; Monocytes # (A) 0.4 k/uL (0-1.0); Monocytes % (A) 5 %; Neutrophils # (A) 6.1 k/uL (1.3-7.7); Neutrophils % (A) 82 %; RBC 3.81 m/uL (4.30-5.90); RDW 12.4 % (11.5-15.5); WBC 7.4 k/uL (3.8-10.6); WBC (Perox) 7.27
[2016-04-20 14:07] LABS: ALT 38 U/L (21-72); AST 36 U/L (17-59); Alkaline Phosphatase 113 U/L (38-126); Anion Gap 11 mmol/L; Blood Urea Nitrogen 16 mg/dL (9-20); Calcium 10.4 mg/dL (8.4-10.2); Carbon Dioxide 28 mmol/L (22-30); Chloride 104 mmol/L (98-107); Glucose 103 mg/dL (74-99); Non-African American GFR(MDRD) >60 (>60 ml/min/1.73 sqM); Potassium 4.2 mmol/L (3.5-5.1); Sodium 143 mmol/L (137-145); Total Bilirubin 0.9 mg/dL (0.2-1.3)
[2016-04-20 14:20] LABS: Creatine Kinase 219 U/L (55-170)
[2016-04-20 14:32] LABS: Troponin I <0.012 ng/mL (0.000-0.034)
[2016-04-20 14:37] LABS: Creatine Kinase MB 3.7 ng/mL (0.0-2.4)
--- NOTE | 2016-04-20 14:49 | CT ---
EXAMINATION TYPE: CT brain adalgisa wo con DATE OF EXAM: 04/20/2016 2:41 PM COMPARISON: Previous CT scan of the brain dated 04/07/2016. HISTORY: altered mental status, fall CT DLP: 2023.0 mGycm Automated exposure control for dose reduction was used. TECHNIQUE: CT scan of the brain and cervical spine are performed without contrast. FINDINGS: Brain: There are generalized changes of sulcal prominence and ventriculomegaly, compatible with atrop hic change. There is diffuse periventricular white matter lucency, compatible with chronic white william er ischemic change. There is no acute focal lesion, mass effect or midline shift identified. I do not see evidence of intracranial blood Visualized portions of the paranasal sinuses and mastoids are clear. No depressed skull fracture is s een. IMPRESSION: 1. NO ACUTE INTRACRANIAL ABNORMALITY. 2. ATROPHIC CHANGE. 3. CHRONIC WHITE MATTER ISCHEMIC CHANGE. Cervical spine: Visualized portions of the lungs are clear. There is some shotty cervical adenopathy. There is calcification of the right carotid bulb. Preverteb ral soft tissues are otherwise normal. Vertebral body height and alignment are maintained. Atlantoaxial relationships are normal. There is d iffuse degenerative disc disease, hypertrophic spondylosis and uncovertebral joint disease. There is mild facet arthropathy. No fracture is seen. IMPRESSION: 1. NO ACUTE OSSEOUS LESION. 2. EXTENSIVE DEGENERATIVE CHANGE.
[2016-04-20 16:02] LABS: Appearance,Urine Clear (Clear); Bilirubin,Urine Negative (Negative); Glucose,Urine (UA) Negative (Negative); Ketones,Urine 2+ (Negative); Leukocyte Esterase,Urine Trace (Negative); Mucus,Urine Rare /hpf; Nitrite,Urine Negative (Negative); PH, Urine 5.5 (5.0-8.0); Particle Count 2132; Protein,Urine Negative (Negative); RBC,Urine 6 /hpf (0-5); Specific Gravity,Urine 1.013 (1.001-1.035); Squamous Epithelial Cell,Urine <1 /hpf (0-4); UA Billing (MACRO vs. MICRO) MICRO; Urobilinogen,Urine <2.0 mg/dL (<2.0); WBC,Urine 8 /hpf (0-5)
--- NOTE | 2016-04-20 16:02 | XR ---
EXAMINATION TYPE: XR lumbar spine 2 or 3V DATE OF EXAM ORDERED: 04/20/2016 3:56 PM HISTORY: Pain following trauma. COMPARISON: None. FINDINGS: The bones are extremely osteopenic) likely on the basis of osteoporosis. There is a mild retrolisthesis of L2 on L3 and a small antegrade listhesis of L4 on L5. No fractures are seen. There is no evidence of spondylolysis. The pedicles are intact. There is mild spondylosis d eformans within the spine. IMPRESSION: 1. EXTREME OSTEOPENIA. 2. NO ACUTE FRACTURE. 3. DEGENERATIVE CHANGE.
--- NOTE | 2016-04-20 16:02 | XR ---
EXAMINATION TYPE: XR chest 2V DATE OF EXAM: 04/20/2016 3:56 PM COMPARISON: 04/07/2016 INDICATION: Weakness pain after fall TECHNIQUE: Single frontal view of the chest is obtained. FINDINGS: The heart size is normal. The pulmonary vasculature is normal. Posterior right lower lobe infiltrate is likely present. There is elevation of the right diaphragm Th ere is air within colon under the right diaphragm. Correlate for Chilaiditi's syndrome. IMPRESSION: 1. Posterior right lower lobe infiltrate. Atelectasis or pneumonia could be considered.
[2016-04-20 18:48] VITALS: BP 117/64; PULSE 86
== END 2016-04-20 18:47 | disposition home or self-care (01) ==
LOC: EC 13:03
DX: S39.012A Strain of muscle, fascia and tendon of lower back, initial encounter (principal); W06.XXXA Fall from bed, initial encounter; N42.9 Disorder of prostate, unspecified; G20 Parkinson's disease; F32.9 Major depressive disorder, single episode, unspecified; F41.9 Anxiety disorder, unspecified; Z79.899 Other long term (current) drug therapy
CPT/HCPCS: 36415; 70450; 71020; 72100; 72125; 80053; 81001; 82550; 82553; 84484; 85025; 87086; 93005; 96360; 99285

== ENCOUNTER 2016-04-24 11:52 | Observation (INO) | payer MEDICARE, OTHER ==
[2016-04-24] MEDS ORDERED: SODIUM CHLORIDE 0.9% 500 ML IV STA (12:23)
[2016-04-24] MEDS ORDERED: SODIUM CHLORIDE 0.9% 1,000 ML IV STA ×2 (12:23)
[2016-04-24 12:59] LABS: Basophils % (A) 0 %; CH 33.8; CHCM 33.4; Eosinophils # (A) 0.1 k/uL (0-0.7); Eosinophils % (A) 1 %; HCT 38.7 % (39.0-53.0); HDW 2.31; HGB 12.8 gm/dL (13.0-17.5); Luc # (Auto) 0.09; Luc % (Auto) 1; Lymphocytes # (A) 1.3 k/uL (1.0-4.8); Lymphocytes % (A) 15 %; MCH 33.6 pg (25.0-35.0); MCHC 33.1 g/dL (31.0-37.0); MCV 101.5 fL (80.0-100.0); Mean Platelet Volume 8.5; Monocytes # (A) 0.6 k/uL (0-1.0); Monocytes % (A) 7 %; Neutrophils # (A) 6.2 k/uL (1.3-7.7); Neutrophils % (A) 75 %; RBC 3.82 m/uL (4.30-5.90); RDW 12.4 % (11.5-15.5); WBC 8.2 k/uL (3.8-10.6); WBC (Perox) 8.44
--- NOTE | 2016-04-24 13:13 | XR ---
EXAMINATION TYPE: XR chest 1V DATE OF EXAM: 04/24/2016 12:59 PM COMPARISON: Prior chest x-ray 20 April 2016 HISTORY: Chest pain TECHNIQUE: Single frontal view of the chest is obtained. FINDINGS: There is chronic elevation of the right hemidiaphragm. Some basilar atelectatic changes ar e present. No evident pneumonia thorax or pleural effusion. Cardiac mediastinal silhouette, pulmonary vascularity and dominik are within normal limits. There is overlying artifact. IMPRESSION: Elevated right hemidiaphragm, probable basilar atelectasis or scarring. Follow-up as ind icated. Patient is rotated.
--- NOTE | 2016-04-24 13:15 | ED ---
General Adult HPI - General Chief complaint: Weakness Stated complaint: Fall Time Seen by Provider: 04/24/16 11:53 Source: patient, RN notes reviewed, old records reviewed Mode of arrival: EMS Limitations: physical limitation - History of Present Illness Initial comments: This is a 81-year-old male the ER for evaluation. This patient presents today for evaluation of weakness. Patient was unable to get off his couch her floor today and he had his helper come give her medications morning medications and noted him in that condition. He does suffer from prostate Parkinson's disease, patient denies any chest pain shows rhythm without pain recent fevers, does admit to decreased appetite really not taking in oral intake well either fluids or food. Patient is poor historian secondary to medical condition secondary to clinical state - Related Data Home Medications Medication Instructions Recorded Confirmed Acetaminophen Tab [Tylenol] 650 mg PO Q8H PRN 04/07/16 04/24/16 Carbidopa-Levodopa 10-100 mg 1 tab PO DAILY 04/07/16 04/24/16 [Sinemet 10-100 mg] Carbidopa-Levodopa 25-100 mg 1 tab PO QID 04/07/16 04/24/16 [Sinemet 25-100 mg] Sertraline HCl [Zoloft] 75 mg PO HS 04/07/16 04/24/16 Tamsulosin HCl [Flomax] 0.4 mg PO DAILY 04/07/16 04/24/16 ALPRAZolam [Xanax] 0.5 mg PO Q8H PRN 04/20/16 04/24/16 Docusate [Colace] 100 mg PO BID 04/20/16 04/24/16 Sennosides [Senna] 8.6 mg PO DAILY PRN 04/20/16 04/24/16 amLODIPine [Norvasc] 2.5 mg PO DAILY 04/20/16 04/24/16 traMADol HCL [Ultram] 50 mg PO Q4HR PRN 04/20/16 04/24/16 Previous Rx's Medication Instructions Recorded Levofloxacin [Levaquin] 500 mg PO HS #5 tab 04/11/16 Allergies Allergy/AdvReac Type Severity Reaction Status Date / Time No Known Allergies Allergy Verified 04/24/16 12:07 Review of Systems ROS Statement: Those systems with pertinent positive or pertinent negative responses have been documented in the HPI. ROS Other: All systems not noted in ROS Statement are negative. Past Medical History Past Medical History: Prostate Disorder Additional Past Medical History / Comment(s): Parkinsons History of Any Multi-Drug Resistant Organisms: None Reported Past Surgical History: Hernia Repair Past Anesthesia/Blood Transfusion Reactions: No Reported Reaction Past Psychological History: Anxiety, Depression Smoking Status: Never smoker Past Alcohol Use History: None Reported Past Drug Use History: None Reported - Past Family History Father History Unknown: Yes General Exam Limitations: physical limitation General appearance: alert, in distress, cachectic Head exam: Present: atraumatic, normocephalic, normal inspection Eye exam: Present: normal appearance, PERRL, EOMI. Absent: scleral icterus, conjunctival injection, periorbital swelling ENT exam: Present: mucous membranes dry Neck exam: Present: normal inspection. Absent: tenderness, meningismus, lymphadenopathy Respiratory exam: Present: normal lung sounds bilaterally. Absent: respiratory distress, wheezes, rales, rhonchi, stridor Cardiovascular Exam: Present: regular rate, normal rhythm, normal heart sounds. Absent: systolic murmur, diastolic murmur, rubs, gallop, clicks GI/Abdominal exam: Present: soft, normal bowel sounds. Absent: distended, tenderness, guarding, rebound, rigid Extremities exam: Present: normal inspection, full ROM, normal capillary refill. Absent: tenderness, pedal edema, joint swelling, calf tenderness Back exam: Present: normal inspection Neurological exam: Present: alert, oriented X3, CN II-XII intact Psychiatric exam: Present: normal affect, normal mood Skin exam: Present: warm, dry, intact, normal color. Absent: rash Course Vital Signs 04/24/16 04/24/16 12:01 14:06 Temperature 97.7 F Pulse Rate 67 63 Respiratory 18 18 Rate Blood Pressure 171/88 173/94 O2 Sat by Pulse 96 99 Oximetry - Reevaluation(s) Reevaluation #1: 04/24/16 14:05 Patient with no real clinical improvement at this time EKG Findings - EKG Comments: EKG Findings:: EKG shows normal sinus rhythm 60, MA 174, QRS 90, QTC 422 Medical Decision Making - Medical Decision Making 78 female here for evaluation of Parkinson's disease and weakness. Increasing weakness and severe dehydration, patient was nonlaboratory home, severely dehydrated on clinical exam. At this point no improvement after IV resuscitation will admit for continued evaluation and treatment patient has history of urinary tract infections unable to urinate and refusing catheterization - Lab Data Result diagrams: 04/24/16 12:34 04/24/16 13:52 Lab Results 04/24/16 04/24/16 04/24/16 Range/Units 12:34 12:34 12:34 WBC 8.2 (3.8-10.6) k/uL RBC 3.82 L (4.30-5.90) m/uL Hgb 12.8 L (13.0-17.5) gm/dL Hct 38.7 L (39.0-53.0) % MCV 101.5 H (80.0-100.0) fL MCH 33.6 (25.0-35.0) pg MCHC 33.1 (31.0-37.0) g/dL RDW 12.4 (11.5-15.5) % Plt Count 153 (150-450) k/uL Neutrophils % 75 % Lymphocytes % 15 % Monocytes % 7 % Eosinophils % 1 % Basophils % 0 % Neutrophils # 6.2 (1.3-7.7) k/uL Lymphocytes # 1.3 (1.0-4.8) k/uL Monocytes # 0.6 (0-1.0) k/uL Eosinophils # 0.1 (0-0.7) k/uL Basophils # 0.0 (0-0.2) k/uL PT (9.0-12.0) sec INR (<1.1) APTT (22.0-30.0) sec Sodium (137-145) mmol/L Potassium (3.5-5.1) mmol/L Chloride (98-107) mmol/L Carbon Dioxide (22-30) mmol/L Anion Gap mmol/L BUN (9-20) mg/dL Creatinine (0.66-1.25) mg/dL Est GFR (MDRD) Af Amer (>60 ml/min/1.73 sqM) Est GFR (MDRD) Non-Af (>60 ml/min/1.73 sqM) Glucose (74-99) mg/dL Plasma Lactic Acid Ever 1.0 (0.7-2.0) mmol/L Calcium (8.4-10.2) mg/dL Phosphorus (2.5-4.5) mg/dL Magnesium (1.6-2.3) mg/dL Total Bilirubin (0.2-1.3) mg/dL AST (17-59) U/L ALT (21-72) U/L Alkaline Phosphatase (38-126) U/L Total Creatine Kinase (55-170) U/L CK-MB (CK-2) (0.0-2.4) ng/mL CK-MB (CK-2) Rel Index Troponin I (0.000-0.034) ng/mL NT-Pro-B Natriuret Pep 811 pg/mL Total Protein (6.3-8.2) g/dL Albumin (3.5-5.0) g/dL 04/24/16 04/24/16 04/24/16 Range/Units 13:30 13:52 13:52 WBC (3.8-10.6) k/uL RBC (4.30-5.90) m/uL Hgb (13.0-17.5) gm/dL Hct (39.0-53.0) % MCV (80.0-100.0) fL MCH (25.0-35.0) pg MCHC (31.0-37.0) g/dL RDW (11.5-15.5) % Plt Count (150-450) k/uL Neutrophils % % Lymphocytes % % Monocytes % % Eosinophils % % Basophils % % Neutrophils # (1.3-7.7) k/uL Lymphocytes # (1.0-4.8) k/uL Monocytes # (0-1.0) k/uL Eosinophils # (0-0.7) k/uL Basophils # (0-0.2) k/uL PT 13.0 H (9.0-12.0) sec INR 1.3 (<1.1) APTT 26.6 (22.0-30.0) sec Sodium 139 (137-145) mmol/L Potassium 4.0 (3.5-5.1) mmol/L Chloride 106 (98-107) mmol/L Carbon Dioxide 26 (22-30) mmol/L Anion Gap 7 mmol/L BUN 11 (9-20) mg/dL Creatinine 0.60 L (0.66-1.25) mg/dL Est GFR (MDRD) Af Amer >60 (>60 ml/min/1.73 sqM) Est GFR (MDRD) Non-Af >60 (>60 ml/min/1.73 sqM) Glucose 103 H (74-99) mg/dL Plasma Lactic Acid Ever (0.7-2.0) mmol/L Calcium 9.3 (8.4-10.2) mg/dL Phosphorus 2.4 L (2.5-4.5) mg/dL Magnesium 1.7 (1.6-2.3) mg/dL Total Bilirubin 0.9 (0.2-1.3) mg/dL AST 30 (17-59) U/L ALT 37 (21-72) U/L Alkaline Phosphatase 102 (38-126) U/L Total Creatine Kinase 156 (55-170) U/L CK-MB (CK-2) 4.7 H* (0.0-2.4) ng/mL CK-MB (CK-2) Rel Index 3.0 Troponin I 0.012 (0.000-0.034) ng/mL NT-Pro-B Natriuret Pep pg/mL Total Protein 6.0 L (6.3-8.2) g/dL Albumin 3.2 L (3.5-5.0) g/dL Disposition Clinical Impression: Dehydration, History of Parkinson's disease, Weakness generalized Disposition: ADMITTED IP TO THIS [facility] Condition: Fair
--- NOTE | 2016-04-24 13:18 | XR ---
AP pelvis HISTORY: Trauma and pain Frontal view of the pelvis submitted on 2 images. No comparisons Bone mineralization is reduced which may limit sensitivity. Mild arthropathy in the hips. Alignment i s maintained. There are vascular calcifications present. Multiple calcifications in the right paraspi nal location may be related to kidney stone. IMPRESSION: No acute fracture or dislocation. Follow-up as indicated. Osteopenia. Possible nephrolith iasis.
[2016-04-24 13:50] LABS: INR 1.3 (<1.1); Partial Thromboplastin Time 26.6 sec (22.0-30.0)
[2016-04-24 14:15] LABS: ALT 37 U/L (21-72); AST 30 U/L (17-59); Alkaline Phosphatase 102 U/L (38-126); Anion Gap 7 mmol/L; Blood Urea Nitrogen 11 mg/dL (9-20); Calcium 9.3 mg/dL (8.4-10.2); Carbon Dioxide 26 mmol/L (22-30); Chloride 106 mmol/L (98-107); Glucose 103 mg/dL (74-99); Magnesium 1.7 mg/dL (1.6-2.3); Non-African American GFR(MDRD) >60 (>60 ml/min/1.73 sqM); Phosphorous 2.4 mg/dL (2.5-4.5); Sodium 139 mmol/L (137-145); Total Bilirubin 0.9 mg/dL (0.2-1.3)
[2016-04-24 14:41] LABS: Troponin I 0.012 ng/mL (0.000-0.034)
[2016-04-24 14:42] LABS: Creatine Kinase MB 4.7 ng/mL (0.0-2.4)
[2016-04-24] MEDS ORDERED: ALPRAZolam 0.5 MG TAB PO PRN (19:04)
[2016-04-24] MEDS ORDERED: SENNOSIDES 8.6 MG TAB PO PRN (19:04)
[2016-04-24 19:20] LABS: Appearance,Urine Clear (Clear); Bilirubin,Urine Negative (Negative); Glucose,Urine (UA) Negative (Negative); Ketones,Urine Negative (Negative); Leukocyte Esterase,Urine Negative (Negative); Nitrite,Urine Negative (Negative); Protein,Urine Negative (Negative); Specific Gravity,Urine 1.006 (1.001-1.035); UA Billing (MACRO vs. MICRO) CHEM; Urobilinogen,Urine <2.0 mg/dL (<2.0)
[2016-04-24] MEDS: CARBIDOPA-LEVODOPA 25-100 MG 1 EACH TAB PO SCH (21:01)
[2016-04-24] MEDS: LEVOFLOXACIN 500 MG TAB PO SCH (21:01)
[2016-04-24] MEDS: DOCUSATE 100 MG CAP PO SCH (21:01)
[2016-04-24] MEDS: SERTRALINE 25 MG TAB PO SCH (21:01)
[2016-04-24] MEDS: ACETAMINOPHEN TAB 325 MG TAB PO PRN (22:28)
[2016-04-25] MEDS: traMADol 50 MG TAB PO PRN (07:20)
[2016-04-25] MEDS: CARBIDOPA-LEVODOPA 25-100 MG 1 EACH TAB PO SCH ×3 (07:21→19:56)
[2016-04-25] MEDS: ENOXAPARIN 40 MG/0.4 ML SYRINGE SQ SCH (07:22)
[2016-04-25] MEDS: amLODIPine 2.5 MG TAB PO SCH (07:22)
[2016-04-25] MEDS: TAMSULOSIN 0.4 MG CAP.ER.24H PO SCH (07:22)
[2016-04-25] MEDS: DOCUSATE 100 MG CAP PO SCH (07:22)
[2016-04-25] MEDS ORDERED: CARBIDOPA-LEVODOPA 10-100 MG 1 EACH TAB PO SCH (07:30)
[2016-04-25] MEDS ORDERED: RX INFO: IV CONTRAST WAS GIVEN 1 EACH MISC MISCELLANE PRN (10:42)
[2016-04-25] MEDS ORDERED: IOHEXOL 350 MG/ML 25 ML BOTTLE (ORAL USE) PO PRN (10:42)
[2016-04-25] MEDS: ACETAMINOPHEN TAB 325 MG TAB PO PRN (11:08)
--- NOTE | 2016-04-25 13:19 | HP ---
DATE OF ADMISSION: 04/24/2016 PRESENTING COMPLAINT: Fall. HISTORY OF PRESENTING COMPLAINT: This is an 81-year-old patient recently discharged from the hospital states he was sitting in his lazy boy and got up. He slid down the chair, not able to get up. Patient was weak in the left knee and is able to weight bear properly. Patient does use a walker to get about otherwise. Patient's other chronic stable conditions include GERD, osteoarthritis, BPH, does quite often times uses a wheelchair. Patient states he has a good appetite, has been also losing weight. Has lost about 60 pounds over a period of time. REVIEW OF SYSTEMS: CONSTITUTIONAL: Weak, tired, weight loss. HEENT: Decreased hearing. RESPIRATORY: None. CARDIOVASCULAR: None. GASTROINTESTINAL: None. GENITOURINARY: None. MUSCULOSKELETAL: Aches in different joints, including the left knee and right shoulder. LYMPHATICS: None. PSYCHIATRY: Slightly forgetful. NEUROLOGICAL: No focal weakness. Past medical history of GERD, osteoarthritis, BPH, UTI, Parkinson's. PAST SURGICAL HISTORY: Hernia repair, left inguinal hernia repair x2, right forearm repair. SOCIAL HISTORY: Lives by himself. No smoking. No alcohol. FAMILY HISTORY: Noncontributory to the presentation. HOME MEDICATIONS: 1. Ultram 50 mg q.4 p.r.n. 2. Norvasc 2.5 p.o. daily. 3. Flomax 0.4 mg a day. 4. Zoloft 75 mg q.h.s. 5. Senna 8.6 mg p.o. daily p.r.n. 6. Levaquin 500 mg q.h.s. 7. Colace 100 mg p.o. b.i.d. 8. Sinemet 25/100 one tablet p.o. q.i.d. 9. Sinemet 10/100 one tablet p.o. daily. 10. Xanax 0.5 q.8 p.r.n. On examination, temperature 98.2, pulse 91, respiration 18, blood pressure 184/96, ( ). GENERAL APPEARANCE: Tall, thin built with a BMI of 18.3, tired appearing. EYES: Pupils equal. Conjunctivae pale. HEENT: External appearance of nose and ears normal. Oral cavity with dry mucous membrane. NECK: JVD not raised. Mass not palpable. RESPIRATORY: Effort normal. LUNGS: Fair air entry. CARDIOVASCULAR: First and second sounds normal. No edema. ABDOMEN: Soft, nontender. Liver and spleen not palpable. LYMPHATIC: No lymph node palpable in neck and axillae. PSYCHIATRY: Patient knows he is in the hospital, knows the year to be 2017, knows the date, knows the month. NEUROLOGICAL: Patient able to lift his legs off the bed. I do not see any bradykinesia. No cogwheel rigidity, though the patient ( ) is slow. MUSCULOSKELETAL: Diffuse wasting of the muscles. INVESTIGATIONS: White count 8.2, hemoglobin 12.8, MCV 101.5. Potassium 4. Albumin is 3.2. ASSESSMENT: 1. 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 Given decreased oral intake, patient's body mass index is lower side and patient lost over 60 pounds. 2. Macrocytic anemia, need to rule out B12 deficiency and also check for patient's TSH level. 3. I do not see any obvious Parkinson manifestation at this present time, we will stop patient's Sinemet and see how he does. If he gets worse then I will put the Sinemet back on board. 4. Left knee arthritis, causing instability. Will get the patient a brace. 5. Rule out malignancy. 6. Essential hypertension, uncontrolled. 7. Anxiety, depression, not otherwise specified. 8. Benign prostatic hypertrophy. PLAN: At this point, ( ) and see how does. Get a brace for the left knee. Get PT, OT involved. Check patient's TSH and B12 level. Home medications will be resumed. Will adjust patient's blood pressure medications, seems to be running high. Also do a CT scan of the chest, abdomen and pelvis to rule out any malignancy. PT, OT and elementary school social worker consult.
[2016-04-25 14:47] VITALS: BMI 18.2
--- NOTE | 2016-04-25 17:35 | CT ---
EXAMINATION TYPE: CT ChestAbdPelvis w con DATE OF EXAM: 04/25/2016 5:19 PM COMPARISON: NONE HISTORY: Patient poor historian. Rule out malignancy. CT DLP: 2414 mGycm Automated exposure control for dose reduction was used. CONTRAST: CT scan of the chest, abdomen and pelvis is performed with Oral Contrast and with IV Contrast, patien t injected with 100 mL of Omnipaque 300. FINDINGS: There is significant elevation of the right diaphragm with atelectasis at the right lung base area th ere is interposition of the hepatic flexure of the colon. The left lung is clear. There is no evidenc e of a pulmonary mass. There is no mediastinal adenopathy. There are no hilar masses. There is no per icardial effusion. Liver shows no focal defect. Bile ducts are not dilated. Gallbladder appears normal. There is no sign of a pancreatic mass. Spleen appears normal. There are bilateral renal cortical cysts. The largest is on the lower pole of the right kidney and me asures 5 cm. There is mild right-sided hydronephrosis. There is a 1 cm stone obstructing the right ki dney at the ureteropelvic junction. The left kidney shows no hydronephrosis. There is no evidence of retroperitoneal adenopathy. Abdominal aorta is atheromatous. Bladder distends smoothly. Prostate is enlarged. There is no evidence of a bowel obstruction. The right colon is ante rior to the liver. There is no evidence of appendicitis. Appendix appears normal. I see no focal bone destruction. There is degenerative spurring in the thoracic and lumbar spine. There is a small hiata l hernia. IMPRESSION: There is interposition of the hepatic flexure of the colon. There is elevated right diaph ragm and atelectasis at the right lung base. Atherosclerotic vascular disease. Normal appendix. Bilat eral renal cysts. Obstructing stone at the right ureteropelvic junction. Mild right-sided hydronephrosis. No evidence of a neoplastic process. There is probably some sigmoid diverticulosis without evidence o f diverticulitis.
[2016-04-25] MEDS: LEVOFLOXACIN 500 MG TAB PO SCH (21:15)
[2016-04-25] MEDS: SERTRALINE 25 MG TAB PO SCH (21:15)
[2016-04-26] MEDS: ACETAMINOPHEN TAB 325 MG TAB PO PRN ×2 (07:04→19:17)
[2016-04-26] MEDS: ENOXAPARIN 40 MG/0.4 ML SYRINGE SQ SCH (08:29)
[2016-04-26] MEDS: amLODIPine 2.5 MG TAB PO SCH (08:29)
[2016-04-26] MEDS: TAMSULOSIN 0.4 MG CAP.ER.24H PO SCH (08:29)
[2016-04-26] MEDS: SERTRALINE 25 MG TAB PO SCH (20:32)
[2016-04-26] MEDS: LEVOFLOXACIN 500 MG TAB PO SCH (20:32)
[2016-04-27] MEDS: traMADol 50 MG TAB PO PRN ×3 (01:26→20:38)
--- NOTE | 2016-04-27 07:19 | PN ---
DATE OF SERVICE: 04/26/2016 PRESENTING COMPLAINT: Fall. INTERVAL HISTORY: This is a patient with medical debility with diffuse myopathy, which could be nutritional admitted for the same. Patient has got a good appetite. I did stop patient's Sinemet. Patient is actually feeling a bit better. healthcare social worker looking into placement. Patient is eating rather well. Review of systems done for constitutional, cardiovascular, GI, pulmonary; relevant findings as above. Current medications are reviewed. On examination, temperature 98.5, pulse 88, respiration 18, blood pressure 89/52, pulse ox 95% on room air. GENERAL APPEARANCE: Lying in bed, tired appearing. EYES: Pupils equal. Conjunctivae pale. NECK: JVD not raised. Mass not palpable. RESPIRATORY: Effort normal. LUNGS: Fair air entry. CARDIOVASCULAR: First and second sounds normal. No edema. ABDOMEN: Soft, nontender. Liver and spleen not palpable. PSYCHIATRY: Awake, answering questions. INVESTIGATIONS: Patient failed ( ) mini cogwheel test. INVESTIGATIONS: Prealbumin is 11. TSH is normal. B12 is 472. ASSESSMENT: 1. Diffuse myopathy, could be nutritional causing weakness, 2. Arthritis, causing instability, getting a knee support. 3. Essential hypertension, better controlled. 4. Anxiety, depression, not otherwise specified. 5. Benign prostatic hypertrophy. PLAN: Patient's CT scan, there is no evidence of any obvious malignancy. PT, OT is working on the patient. Patient's blood pressure is much better controlled. Patient is eating a good diet. Await social security benefits interviewer's input.
[2016-04-27] MEDS: TAMSULOSIN 0.4 MG CAP.ER.24H PO SCH (08:34)
[2016-04-27] MEDS: ENOXAPARIN 40 MG/0.4 ML SYRINGE SQ SCH (08:34)
[2016-04-27] MEDS: amLODIPine 2.5 MG TAB PO SCH (08:34)
[2016-04-27] MEDS: CARBIDOPA-LEVODOPA 25-100 MG 1 EACH TAB PO SCH ×2 (16:49→20:39)
[2016-04-27 17:29] VITALS: RESP 16
[2016-04-27] MEDS: SERTRALINE 25 MG TAB PO SCH (20:39)
--- NOTE | 2016-04-27 21:39 | PN ---
DATE OF SERVICE: 04/27/2016 PRESENTING COMPLAINT: Fall. INTERVAL HISTORY: This patient has medical debility with diffuse myopathy; could be nutritional. I had held off patient's Sinemet, thinking that might make him better, but actually he is weaker. Hence will put him back on the Sinemet. Patient otherwise is eating rather well. Malignancy workup was negative. wicker worker is still looking into placement. Review of systems done for constitutional, cardiovascular, GI, pulmonary; relevant findings as above. Patient has an Talon wrap on the left knee and actually feels better with the same. Current medications are reviewed. On examination, temperature 97.6, pulse 69, respiration 12, blood pressure 100/59, pulse ox 96% on room air. GENERAL APPEARANCE: Lying in bed, tired-appearing. EYES: Pupils equal. Conjunctiva pale. NECK: JVD not raised. Mass not palpable. RESPIRATORY: Effort normal. Lungs are clear. CARDIOVASCULAR: First and second sounds normal. No edema. ABDOMEN: Soft, nontender. Liver and spleen not palpable. PSYCHIATRY: Awake. Answering questions. NEUROLOGICAL: Slow in the limbs. INVESTIGATIONS: I had done a mini cogwheel test on the patient. He did not do well with that. No blood work from today. ASSESSMENT: 1. Diffuse myopathy; could be nutritional, causing weakness. 2. 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 3. Arthritis causing instability. 4. Essential hypertension. 5. Anxiety, depression not otherwise specified. 6. Benign prostatic hypertrophy. 7. Gait dysfunction. PLAN: I spoke to the case assistant. She is working on discharge planning. In the meantime, we will put the patient back on Sinemet 25/100 one tablet p.o. t.i.d. and see how he fares. Other medication and treatment plan is to continue. Will discontinue patient's Levaquin.
[2016-04-27] MEDS: ACETAMINOPHEN TAB 325 MG TAB PO PRN (23:34)
[2016-04-28 08:14] VITALS: BP 118/55; PULSE 61; TEMP 97.7
[2016-04-28] MEDS: ACETAMINOPHEN TAB 325 MG TAB PO PRN (09:10)
[2016-04-28] MEDS: amLODIPine 2.5 MG TAB PO SCH (09:10)
[2016-04-28] MEDS: CARBIDOPA-LEVODOPA 25-100 MG 1 EACH TAB PO SCH (09:10)
[2016-04-28] MEDS: ENOXAPARIN 40 MG/0.4 ML SYRINGE SQ SCH (09:11)
[2016-04-28] MEDS: TAMSULOSIN 0.4 MG CAP.ER.24H PO SCH (09:11)
--- NOTE | 2016-04-28 14:20 | DS ---
DATE OF ADMISSION: 04/24/2016 DATE OF DISCHARGE: FINAL DIAGNOSES: 1. Diffuse myopathy possibly nutritional causing weakness leading to falls. 2. Parkinson disease, idiopathic, with possibly Lewy body dementia. 3. Primary osteoarthritis bilateral, causing instability. 4. Essential hypertension. 5. Anxiety and depression, not otherwise specified. 6. Benign prostatic hypertrophy. 7. Gait dysfunction. HOSPITAL COURSE: This patient presented with falls, found to have diffuse myopathy, could be nutritional, patient has been losing weight likely from decreased oral intake, not able to manage himself. Patient is eating really well here. CT chest, abdomen and pelvis was negative for any malignancy. Patient did fail bedside mini cogwheel test, which is screening test for dementia. Patient did better with left in Talon wrap. If he could get a sleeve that would be better in terms of ambulation. Patient's B12, TSH weer both normal. DISCHARGE MEDICATIONS: 1. Tylenol 650 mg q.8 p.r.n. 2. Zoloft 75 mg q.h.s. 3. Senna 8.6 mg p.o. daily. 4. Norvasc 2.5 mg daily. 5. Sinemet 20/100, 1 tablet t.i.d. 6. Flomax 0.4 mg p.o. q.h.s. 7. Ultram 50 mg p.o. q.4 p.r.n. DISPOSITION: [facility]. On exam, lungs are clear. CARDIOVASCULAR: First and second sounds normal. No edema. Patient able to answer simple questions.
== END 2016-04-28 16:15 ==
LOC: EC 11:52 → 5MS5E 14:05
PROVIDERS: ADMIT Hospitalist; ATTEND Hospitalist
DX: G72.9 Myopathy, unspecified (principal); G20 Parkinson's disease; M17.0 Bilateral primary osteoarthritis of knee; Z91.81 History of falling; I10 Essential (primary) hypertension; F41.9 Anxiety disorder, unspecified; F32.9 Major depressive disorder, single episode, unspecified; N40.0 Benign prostatic hyperplasia without lower urinary tract symptoms; E86.0 Dehydration; K21.9 Gastro-esophageal reflux disease without esophagitis; Z79.899 Other long term (current) drug therapy; Z87.440 Personal history of urinary (tract) infections; R34 Anuria and oliguria
CPT/HCPCS: 36415; 93005; 97116; 97161; 97535; 97166; 84134; 83880; 80053; 84443; 82607; 82550; 82553; 83605; 83735; 84100; 84484; 85025; 85610; 85730; 81003; 87040; 87086; 71010; 72170; 71260; 74177; 99285; 96365; 96361 ×2; G0378 ×5; J1650 ×4; J0696; Q9967; 96372

== ENCOUNTER 2016-06-08 09:32 | Day surgery (SDC) | payer MEDICARE, OTHER ==
[2016-06-07 12:06] VITALS: BMI 20.5
[~2016-06-08 09:32] MED LIST: LACTATED RINGERS 1,000 ML IV SCH
[2016-06-08] MEDS ORDERED: LIDOCAINE 1% 20 ML VIAL (10MG/ML) FOR IV START INTRADERMA ONE (11:07)
[2016-06-08 11:23] VITALS: TEMP 97.4
[2016-06-08] MEDS ORDERED: LIDOCAINE 1% INJ 10MG/ML (20 ML MDV) ONE (11:47)
[2016-06-08] MEDS ORDERED: PROPOFOL 10 MG/ML 20 ML VIAL IV ONE (11:47)
--- NOTE | 2016-06-08 12:46 | P.PCN ---
Date of Procedure: 06/08/16 Procedure(s) Performed: Procedure: 1. Esophagogastroduodenoscopy and biopsy. 2. Total colonoscopy. Preoperative diagnosis: Epigastric pain, weight loss and blood in the stools. Postoperative diagnosis: 1. Hiatal hernia with LA grade 2-3 distal esophagitis. 2. Short Simons's esophagus. 3. Mild antral gastritis. 4. Diverticulosis with no evidence of acute diverticulitis or strictures. 5. No polyps, tumors or cancer. 6. Low-grade internal hemorrhoids without bleeding. Preparation: HalfLytely prep. Sedation: Was provided by anesthesia. Brief clinical history: The patient is an 81-year-old male who I have evaluated in the office recently for the above reasons. This evaluation is to assess for neoplasia, complicated reflux disease or other pathology. Procedure: With the patient on his left lateral decubitus position and after informed consent and adequate sedation, I passed the Olympus-GIF 160 video upper endoscope through the cricopharyngeus down the esophagus. GE junction was around 40 cm from the incisors and there was a short Simons's segment. A 2 cm hiatal hernia was then entered and then the endoscope was advanced into the stomach. Finally, the endoscope was passed through the pylorus into the duodenum. There was some mottling and erythema in the antrum. Pyloric channel did not show any ulcers. Duodenal bulb, post bulbar area and descending duodenum showed minimal erythema. The distal esophagus showed evidence of LA grade 2-3 distal esophagitis. There were no strictures or bleeding. I obtained multiple biopsies from the duodenum, antrum and the Simons's segment then the endoscope was withdrawn and I proceeded with the colonoscopy. Perianal area did not show any fissures or fistulas. There were no masses felt on digital rectal examination. The Olympus CFQ 160L videocolonoscope was then inserted in the rectum in the usual fashion and advanced to the cecum. There was significant diverticular disease noted most evident on the left side with several smaller diverticular orifices scattered on the right. The mucosa appeared healthy. There was no evidence of acute diverticulitis or strictures. No polyps or tumors were seen or any other pathology. I retroflexed endoscope in the rectum before the endoscope was withdrawn. Low-grade internal hemorrhoids were noted with no bleeding. The patient tolerated the procedure well. Plan: The patient and his caregivers were reassured. Will await biopsy results and make additional recommendations.
[2016-06-08 13:15] VITALS: BP 168/80; PULSE 82; RESP 16
== END 2016-06-08 13:49 | disposition home or self-care (01) ==
LOC: ORWHC2ENDO 09:32
DX: K29.50 Unspecified chronic gastritis without bleeding (principal); K57.30 Diverticulosis of large intestine without perforation or abscess without bleeding; K64.8 Other hemorrhoids; K20.9 Esophagitis, unspecified; K44.9 Diaphragmatic hernia without obstruction or gangrene; I10 Essential (primary) hypertension; N40.0 Benign prostatic hyperplasia without lower urinary tract symptoms; G20 Parkinson's disease; F32.9 Major depressive disorder, single episode, unspecified; K22.70 Barrett's esophagus without dysplasia; R63.4 Abnormal weight loss; Z79.899 Other long term (current) drug therapy
CPT/HCPCS: 88305; 88342; 45378; 43239; J2001; J2704

== ENCOUNTER 2016-08-05 18:53 | Inpatient (IN) | payer MEDICARE, OTHER ==
[2016-08-05] MEDS ORDERED: IBUPROFEN 600 MG TAB PO STA (18:59)
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
[2016-08-05] MEDS: SODIUM CHLORIDE 0.9% 500 ML IV SCH ×2 (19:22→19:23)
[2016-08-05 19:35] LABS: Basophils % (A) 0 %; CHCM 34.2; Eosinophils # (A) 0.1 k/uL (0-0.7); Eosinophils % (A) 1 %; HCT 37.6 % (39.0-53.0); HDW 2.46; HGB 12.9 gm/dL (13.0-17.5); Luc # (Auto) 0.03; Luc % (Auto) 0; Lymphocytes # (A) 0.2 k/uL (1.0-4.8); Lymphocytes % (A) 2 %; MCH 33.4 pg (25.0-35.0); MCHC 34.4 g/dL (31.0-37.0); Mean Platelet Volume 6.8; Monocytes # (A) 0.4 k/uL (0-1.0); Monocytes % (A) 4 %; Neutrophils # (A) 9.4 k/uL (1.3-7.7); Neutrophils % (A) 92 %; RBC 3.88 m/uL (4.30-5.90); RDW 13.4 % (11.5-15.5); WBC 10.2 k/uL (3.8-10.6); WBC (Perox) 10.96
[2016-08-05 19:53] LABS: ALT 25 U/L (21-72); AST 26 U/L (17-59); Alkaline Phosphatase 90 U/L (38-126); Anion Gap 7 mmol/L; Blood Urea Nitrogen 22 mg/dL (9-20); Calcium 9.6 mg/dL (8.4-10.2); Carbon Dioxide 26 mmol/L (22-30); Chloride 107 mmol/L (98-107); Glucose 109 mg/dL (74-99); Magnesium 1.7 mg/dL (1.6-2.3); Non-African American GFR(MDRD) >60 (>60 ml/min/1.73 sqM); Potassium 3.9 mmol/L (3.5-5.1); Sodium 140 mmol/L (137-145); Total Bilirubin 0.8 mg/dL (0.2-1.3); Total Protein 6.8 g/dL (6.3-8.2)
[2016-08-05 19:58] LABS: Troponin I 0.012 ng/mL (0.000-0.034)
--- NOTE | 2016-08-05 20:01 | XR ---
EXAMINATION TYPE: XR chest 2V DATE OF EXAM: 08/05/2016 7:55 PM COMPARISON: 04/24/2016 HISTORY: Fever TECHNIQUE: Frontal and lateral views of the chest are obtained. FINDINGS: There is significant opacification of the right hemithorax consistent with pleural fluid a nd pulmonary consolidation. There is pulmonary vascular congestion. Heart is probably enlarged. Thora cic aorta is atheromatous. IMPRESSION: There is increasing pleural fluid on the right side compared to last exam and consistent with congestive heart failure and pleural effusion. Right lower lobe pneumonia should also be consid ered. Right lower lobe mass cannot be excluded. Follow-up is recommended.
[2016-08-05 20:02] LABS: Appearance,Urine Clear (Clear); Bilirubin,Urine Negative (Negative); Glucose,Urine (UA) Negative (Negative); Ketones,Urine Negative (Negative); Leukocyte Esterase,Urine Large (Negative); Mucus,Urine Rare /hpf; Nitrite,Urine Negative (Negative); Particle Count 5078; Protein,Urine Trace (Negative); RBC,Urine >182 /hpf (0-5); Specific Gravity,Urine 1.015 (1.001-1.035); UA Billing (MACRO vs. MICRO) MICRO; Urobilinogen,Urine <2.0 mg/dL (<2.0); WBC,Urine 49 /hpf (0-5)
[2016-08-05 20:21] LABS: INR 1.1 (<1.1); Prothrombin Time 11.5 sec (9.0-12.0)
[2016-08-05] MEDS ORDERED: LEVOFLOXACIN 750MG-D5W PMX 750 MG in DEXTROSE/WATER 1 150ML.BAG IVPB STA (20:48)
[2016-08-05] MEDS ORDERED: PNEUMONIA PROTOCOL UTILIZED 1 EACH MISC PO PRN (21:07)
[2016-08-05] MEDS ORDERED: traMADol 50 MG TAB PO PRN (21:11)
[2016-08-05] MEDS ORDERED: SENNOSIDES 8.6 MG TAB PO PRN (21:11)
[2016-08-05] MEDS: SODIUM CHLORIDE 0.9% 1,000 ML IV SCH (22:04)
[2016-08-05] MEDS: ARTIFICIAL TEARS-HYPROMELLOSE DROPS 15 ML BTL BOTH EYES SCH (23:33)
[2016-08-05] MEDS: PIPERACILLIN-TAZOBACTAM 3.375 GM in DEXTROSE/WATER 1 50ML.BAG IVPB SCH (23:33)
[2016-08-06] MEDS: IPRATROPIUM-ALBUTEROL 3 ML NEB INHALATION SCH ×6 (00:22→21:03)
[2016-08-06] MEDS: ARTIFICIAL TEARS-HYPROMELLOSE DROPS 15 ML BTL BOTH EYES SCH ×4 (03:49→20:16)
[2016-08-06] MEDS: ACETAMINOPHEN TAB 325 MG TAB PO SCH ×3 (04:43→20:16)
[2016-08-06 06:08] VITALS: BMI 21.9
[2016-08-06] MEDS: PANTOPRAZOLE 40 MG TABLET PO SCH (06:57)
[2016-08-06] MEDS: CARBIDOPA-LEVODOPA 25-100 MG 1 EACH TAB PO SCH ×3 (06:57→20:16)
[2016-08-06] MEDS: SODIUM CHLORIDE 0.9% 1,000 ML IV SCH ×2 (07:00→16:36)
--- NOTE | 2016-08-06 07:50 | XR ---
EXAMINATION TYPE: XR chest 2V DATE OF EXAM: 08/06/2016 COMPARISON: August 05, 2016 HISTORY: Shortness of breath TECHNIQUE: Frontal and lateral views of the chest are obtained. FINDINGS: Scattered senescent parenchymal changes noted. Hyperinflation compatible with COPD. Chronic elevation right hemidiaphragm with basilar strandy density. Improved aeration at the right bryan ng base. Residual infiltrate not excluded. Heart size is stable. Mediastinal structures are stable and grossly unremarkable. No evidence for hilar prominence. Degenerative changes dorsal spine. IMPRESSION: 1. Chronic elevation right hemidiaphragm with basilar strandy density. Improved aeration at the right lung base. Residual infiltrate not excluded.
[2016-08-06] MEDS: PIPERACILLIN-TAZOBACTAM 3.375 GM in DEXTROSE/WATER 1 50ML.BAG IVPB SCH ×2 (08:37→16:35)
[2016-08-06] MEDS: TAMSULOSIN 0.4 MG CAP.ER.24H PO SCH (08:38)
[2016-08-06] MEDS: DICLOFENAC SODIUM GEL 100 GM TUBE TOPICAL SCH ×2 (08:43→20:15)
[2016-08-06] MEDS ORDERED: amLODIPine 2.5 MG TAB PO SCH (09:00)
--- NOTE | 2016-08-06 13:10 | HP ---
DATE OF ADMISSION: 08/05/2016 81-year-old gentleman who came in with fever, sepsis and patient is a resident of residential, [facility] and patient has high-grade fever up to 101.9. Patient was ( ) a couple days ago. The patient is also complaining of cough, unable to bring up anything. Patient feels like everything is in his chest but patient is also complaining of severe dysuria. Patient's chest x-ray showed chronic ( ) elevation with significant ( ) in the right middle lobe and patient is on antibiotics treating health care associated pneumonia which is appropriate. Because of Parkinson's, patient is on levofloxacin, which will be discontinued and patient will be started on Doxycycline instead. Patient will continue Piptazo at this point of time. The patient's urine also looked significantly abnormal. REVIEW OF SYSTEMS: CONSTITUTIONAL: as described in history of present illness. HEENT: No recent visual problems or hearing problems. Denied any sore throat. CARDIOVASCULAR: No chest pain, orthopnea, PND, no palpitations, no syncope. PULMONARY: as described in history of present illness. GASTROINTESTINAL: No diarrhea, no nausea, no vomiting, no abdominal pain. Normoactive bowel sounds. NEUROLOGICAL: No headaches, no weakness, no numbness. HEMATOLOGICAL: Denies any bleeding or petechiae. GENITOURINARY: as described in history of present illness. MUSCULOSKELETAL/RHEUMATOLOGICAL: Denies any joint pain, swelling, or any muscle pain. ENDOCRINE: Denies any polyuria or polydipsia. The rest of the 14 point review of systems is negative. Home medications include: 1. Acetaminophen. 2. Sertraline. 3. ( ). 4. Cyanocobalamin. 5. Artificial tears. 6. Carbidopa levodopa. 7. Diclofenac. 8. Omeprazole. 9. Tamsulosin. 10. The patient also takes tramadol, which is being discontinued by me today as patient already is on one NSAID and tramadol makes tremors worse and patient also had already has uncontrolled parkinsonian tremors. ALLERGIES: No known drug allergies. PAST MEDICAL HISTORY: Significant for gastroesophageal disease, Parkinson's, osteoarthritis, Hypertension and depression. ALLERGIES: No known drug allergies. Patient has a hernia ( ) orthopedic surgery in the past. SOCIAL HISTORY: Denied any smoking, alcohol abuse or any drug abuse. FAMILY HISTORY: Father and mother history is not available at this point of time. PHYSICAL EXAMINATION: Temperature 98.4, 24-hour T-max is 101.9. Patient apparently had 103 degree temperature at home. Saturating with a pulse of 90, respiratory rate of 18, blood pressure is 113/67, saturating at 99% on 3 liters O2 by nasal cannula. GENERAL: The patient is alert and oriented x3, not in any acute distress. Well developed, well nourished. HEENT: Pupils are round and equally reacting to light. EOMI. No scleral icterus. No conjunctival pallor. Normocephalic, atraumatic. No pharyngeal erythema. No thyromegaly. CARDIOVASCULAR: S1 and S2 present. No murmurs, rubs, or gallops. PULMONARY: Patient has rhonchus breath sounds on the right side and patient has significant bronchophony, egophony on the right upper entire posterior lung thorpe. ABDOMEN: Soft, nontender, nondistended, normoactive bowel sounds. No palpable organomegaly. MUSCULOSKELETAL: No joint swelling or deformity. EXTREMITIES: No cyanosis, clubbing, or pedal edema. NEUROLOGICAL: Gross neurological examination did not reveal any focal deficits. SKIN: No rashes. LABORATORY DATA: CBC, CMP no significant abnormality, UA showed trace protein, moderate blood, large leukocyte esterase, RBC greater than 182. WBC 49. ASSESSMENT AND PLAN: 1. Sepsis and patient appears to have both pneumonia, right upper lobe, right middle lobe and lower lobe along with urinary tract infection as well, considering his symptoms and also abnormal UA and patient does not have any Alvarez catheter. The patient will be continued on present medications that is Zosyn and levofloxacin. 2. Acute respiratory, hypoxic in nature, secondary to pneumonia. Continue with Zosyn and doxycycline. The patient has Healthcare associated pneumonia. Sputum cultures will be obtained. Blood cultures were already obtained. 3. Parkinson's, uncontrolled symptoms. We will treat the infection first and reassess his parkinsonian symptoms. Continue carbidopa levodopa and Tramadol will be discontinued because of his tremors. 4. Gastroesophageal reflux disease. 5. Benign prostatic hypertrophy, for which I will go ahead and continue his home medications. 6. Hypertension. Hold off amlodipine because of concerns of previous sepsis.
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
[2016-08-06] MEDS: CYANOCOBALAMIN 500 MCG TAB PO SCH (16:36)
[2016-08-06] MEDS: DOXYCYCLINE 50 MG CAP PO SCH (20:16)
[2016-08-06] MEDS: SERTRALINE 50 MG TAB PO SCH (20:16)
[2016-08-06] MEDS ORDERED: LEVOFLOXACIN 750 MG TAB PO SCH (21:00)
[2016-08-07] MEDS: PIPERACILLIN-TAZOBACTAM 3.375 GM in DEXTROSE/WATER 1 50ML.BAG IVPB SCH ×3 (00:05→17:56)
[2016-08-07] MEDS: ACETAMINOPHEN TAB 325 MG TAB PO SCH ×3 (05:19→21:48)
[2016-08-07] MEDS: ARTIFICIAL TEARS-HYPROMELLOSE DROPS 15 ML BTL BOTH EYES SCH ×4 (05:20→21:48)
[2016-08-07] MEDS: IPRATROPIUM-ALBUTEROL 3 ML NEB INHALATION SCH ×4 (07:04→20:37)
[2016-08-07] MEDS: DICLOFENAC SODIUM GEL 100 GM TUBE TOPICAL SCH ×2 (08:22→21:47)
[2016-08-07] MEDS: CARBIDOPA-LEVODOPA 25-100 MG 1 EACH TAB PO SCH ×3 (08:23→17:59)
[2016-08-07] MEDS: DOXYCYCLINE 50 MG CAP PO SCH (08:23)
[2016-08-07] MEDS: TAMSULOSIN 0.4 MG CAP.ER.24H PO SCH (08:24)
[2016-08-07] MEDS: PANTOPRAZOLE 40 MG TABLET PO SCH (08:24)
--- NOTE | 2016-08-07 10:26 | PN ---
The patient is an 81-year-old admitted with severe sepsis and bacteremia, most probably due to urinary tract infection, although patient may have atelectasis or pneumonia in the right lung thorpe. The patient feels a little bit better today. Will continue Zosyn. Discontinue doxycycline as my suspicion for atypical pneumonia is significantly low. Zosyn can be continued until we find the organism after that the spectrum of antibiotic can be narrowed down to most probably Rocephin or a fluoroquinolone. Patient will need total of 14 days of antibiotic. Will not require any IV antibiotics. Repeat blood cultures today and tomorrow again to document the clearance and make sure patient does not have any persistent bacteremia. REVIEW OF SYSTEMS: CARDIOVASCULAR: No chest pain, no orthopnea, no PND, no palpitations. RESPIRATORY; Improved shortness of breath. GASTROINTESTINAL: No diarrhea, nausea or vomiting. No abdominal pain. Normoactive bowel sounds. NEUROLOGIC: No headaches, no weakness, no numbness. Medications were reviewed. PHYSICAL EXAMINATION: VITAL SIGNS: Temperature 98.4, pulse of 76, respiratory rate of 18, blood pressure 149/69, saturating at 92% on 3 L of O2 by nasal cannula. GENERAL: The patient looks much better today. Alert and oriented x3. Patient is tremulous secondary to Parkinson's. HEENT: Pupils are round and equally reacting to light. EOMI. No scleral icterus. No conjunctival pallor. Normocephalic, atraumatic. No pharyngeal erythema. No thyromegaly. CARDIOVASCULAR: S1 and S2 present. No murmurs, rubs, or gallops. PULMONARY: Chest is clear to auscultation, no wheezing or crackles. ABDOMEN: Soft, nontender, nondistended, normoactive bowel sounds. No palpable organomegaly. MUSCULOSKELETAL: No joint swelling or deformity. EXTREMITIES: No cyanosis, clubbing, or pedal edema. NEUROLOGICAL: Gross neurological examination did not reveal any focal deficits. SKIN: No rashes. LABORATORY DATA: I do not have any lab data available from today. ASSESSMENT AND PLAN: 1. Severe sepsis secondary to bacteremia, most probably urinary tract infection. Patient may have additional atelectasis or pneumonia in the right lower lung thorpe. 2. Acute respiratory failure hypoxic major secondary to sepsis. Continue Zosyn for now and patient's antibiotics ( ) can be narrowed down depending on the cultures. 3. Parkinson's. Parkinson symptoms are a little bit better compared to yesterday. Continue with carbidopa levodopa. Patient cannot use tramadol as it increases tremors too. 4. Gastroesophageal reflux disease. 5. Benign prostatic hypertrophy. 6. Hypertension. Continue to hold off amlodipine because of severe sepsis. Patient most probably will need it upon discharge.
--- NOTE | 2016-08-07 16:32 | P.PN ---
Subjective 81-year-old male patient with known history of Parkinson's disease and chronic right hemidiaphragmatic paralysis/elevation coming in with increased cough and congestion along with fever. The patient is still cough and output purulent respiratory secretions however he remains afebrile hemodynamically stable at this point. His cough is weak however he is managing to do adequate amount of pulmonary toileting and bringing up significant amount of purulent respiratory secretions and mucus. I reviewed the chest x-ray underlying right lower lobe pneumonia cannot be completely excluded. Meanwhile, the exact cause for this right hemidiaphragmatic elevation and pelvis is not clear to me at this point. He has not had any thoracic surgery. No history of any trauma. No history of any C-spine injury. He is known to have BPH, previous urinary tract infection, gait dysfunction, osteoarthritis and reflux. Objective - Vital Signs Vital signs: Vital Signs Temp 97.7 F 08/07/16 15:00 Pulse 77 08/07/16 16:00 Resp 18 08/07/16 16:00 BP 151/71 08/07/16 15:00 Pulse Ox 91 L 08/07/16 15:00 Intake & Output 08/06/16 08/07/16 08/07/16 18:59 06:59 18:59 Intake Total 290 660 Output Total 175 175 Balance 115 485 Weight 81.647 kg 81.647 kg Intake: Intake, IV Titration 50 300 Amount Piperacillin-Tazobactam 3 50 .375 gm In Dextrose/Water 1 50ml.bag @ 12.5 mls/hr IVPB Q8HR STEPHEN Rx#: [id number] Sodium Chloride 0.9% 1, 300 000 ml @ 100 mls/hr IV . Q10H STEPHEN Rx#:[id number] Oral 240 360 Output: Urine 175 175 Other: Voiding Method Toilet Bedside Commode Bedside Commode Urinal Urinal Urinal Diaper Diaper Diaper # Voids 1 1 3 # Bowel Movements 1 - Exam Head exam was generally normal. There was no scleral icterus or corneal arcus. Mucous membranes were moist.Neck was supple and without jugular venous distension, thyromegaly, or carotid bruits. Carotids were easily palpable bilaterally. There was no adenopathy. Lung sounds are diminished in the right lung base compared to left.Cardiac exam revealed the PMI to be normally situated and sized. The rhythm was regular and no extrasystoles were noted during several minutes of auscultation. The first and second heart sounds were normal and physiologic splitting of the second heart sound was noted. There were no murmurs, rubs, clicks, or gallops.Abdominal exam revealed normal bowel sounds. The abdomen was soft, non-tender, and without masses, organomegaly, or appreciable enlargement of the abdominal aorta.Examination of the extremities revealed easily palpable radial, femoral and pedal pulses. There was no cyanosis , clubbing or edema. - Labs CBC & Chem 7: 08/05/16 19:03 08/05/16 19:03 Labs: Microbiology - Last 24 Hours (Table) 08/05/16 19:03 Blood Culture Gram Stain - Preliminary Blood Blood Culture - Preliminary Gram Neg Bacilli 08/05/16 19:27 Urine Culture - Preliminary Urine,Catheterized Gram Neg Bacilli 08/05/16 19:03 Blood Culture - Final Blood Assessment and Plan Plan: Assessment 1 acute bronchitis versus a right lower lobe pneumonia, and the patient is producing copious amount of rest or secretions and he was quite short of breath , admission. Currently was recommended antibiotics 2 chronic elevation of the right hemidiaphragm, exact ALLERGIES not clear. 3 Parkinson's disease 4 hypertension 5 osteoarthritis 6 GERD 7 BPH 8 urine checked infection and gram-negative bacilli. Plan Swallow evaluation. Sputum Gram stain and culture. The urine and the blood cultures already growing gram-negative bacilli. Is very much likely that the patient is having a combination of pneumonia and a urinary tract infection. There is obviously a gram-negative bacteremia/septicemia this patient. Awaiting final cultures and sensitivities. Continued IV Zosyn for now. Pulmonary toileting. Incentive spirometer. We will continue to follow.
[2016-08-07] MEDS: SODIUM CHLORIDE 0.9% 1,000 ML IV SCH (17:52)
[2016-08-07] MEDS: CYANOCOBALAMIN 500 MCG TAB PO SCH (17:59)
[2016-08-07] MEDS: SERTRALINE 50 MG TAB PO SCH (21:48)
[2016-08-08] MEDS: PIPERACILLIN-TAZOBACTAM 3.375 GM in DEXTROSE/WATER 1 50ML.BAG IVPB SCH ×3 (00:19→16:37)
[2016-08-08] MEDS: ACETAMINOPHEN TAB 325 MG TAB PO SCH ×3 (05:06→21:52)
[2016-08-08] MEDS: ARTIFICIAL TEARS-HYPROMELLOSE DROPS 15 ML BTL BOTH EYES SCH ×4 (05:11→21:55)
[2016-08-08] MEDS: IPRATROPIUM-ALBUTEROL 3 ML NEB INHALATION SCH ×4 (07:16→18:54)
[2016-08-08 07:33] LABS: CH 32.8; CHCM 33.5; HCT 34.4 % (39.0-53.0); HGB 11.7 gm/dL (13.0-17.5); MCH 33.5 pg (25.0-35.0); MCV 98.3 fL (80.0-100.0); Mean Platelet Volume 7.3; RDW 13.5 % (11.5-15.5); WBC 7.1 k/uL (3.8-10.6)
[2016-08-08 07:55] LABS: Anion Gap 8 mmol/L; Blood Urea Nitrogen 13 mg/dL (9-20); Calcium 9.6 mg/dL (8.4-10.2); Carbon Dioxide 26 mmol/L (22-30); Chloride 106 mmol/L (98-107); Glucose 121 mg/dL (74-99); Non-African American GFR(MDRD) >60 (>60 ml/min/1.73 sqM); Potassium 4.1 mmol/L (3.5-5.1); Sodium 140 mmol/L (137-145)
[2016-08-08] MEDS: DICLOFENAC SODIUM GEL 100 GM TUBE TOPICAL SCH ×2 (08:00→21:53)
[2016-08-08] MEDS: CARBIDOPA-LEVODOPA 25-100 MG 1 EACH TAB PO SCH ×3 (08:00→21:53)
[2016-08-08] MEDS: PANTOPRAZOLE 40 MG TABLET PO SCH (08:00)
[2016-08-08] MEDS: TAMSULOSIN 0.4 MG CAP.ER.24H PO SCH (08:00)
--- NOTE | 2016-08-08 12:12 | P.PN ---
Subjective 81-year-old male patient with known history of Parkinson's disease and chronic right hemidiaphragmatic paralysis/elevation coming in with increased cough and congestion along with fever. The patient is still cough and output purulent respiratory secretions however he remains afebrile hemodynamically stable at this point. His cough is weak however he is managing to do adequate amount of pulmonary toileting and bringing up significant amount of purulent respiratory secretions and mucus. I reviewed the chest x-ray underlying right lower lobe pneumonia cannot be completely excluded. Meanwhile, the exact cause for this right hemidiaphragmatic elevation and pelvis is not clear to me at this point. He has not had any thoracic surgery. No history of any trauma. No history of any C-spine injury. He is known to have BPH, previous urinary tract infection, gait dysfunction, osteoarthritis and reflux. The patient is seen again today 08/08/2016 in follow-up on the regular medical floor. He is awake and alert in no acute distress. He denies any worsening shortness of breath. He has a loose productive cough of yellow sputum. He's been afebrile. No leukocytosis. Maintaining O2 saturations in the 90s on 3 L/ m per nasal cannula. He's been hemodynamically stable. Blood and urine cultures are positive for Proteus mirabilis. He is maintained on Zosyn. Objective - Vital Signs Vital signs: Vital Signs Temp 98.2 F 08/08/16 07:00 Pulse 66 08/08/16 08:00 Resp 16 08/08/16 08:00 BP 139/69 08/08/16 07:00 Pulse Ox 96 08/08/16 07:00 Intake & Output 08/07/16 08/08/16 08/08/16 18:59 06:59 18:59 Intake Total 660 100 Output Total 175 800 Balance 485 -700 Weight 81.647 kg Intake: Intake, IV Titration 300 100 Amount Piperacillin-Tazobactam 3 100 .375 gm In Dextrose/Water 1 50ml.bag @ 12.5 mls/hr IVPB Q8HR STEPHEN Rx#: [id number] Sodium Chloride 0.9% 1, 300 000 ml @ 100 mls/hr IV . Q10H STEPHEN Rx#:[id number] Oral 360 Output: Urine 175 800 Other: Voiding Method Bedside Commode Bedside Commode Bedside Commode Urinal Urinal Urinal Diaper Diaper Diaper # Voids 3 # Bowel Movements 1 - Exam GENERAL EXAM: Frail, cachectic. Alert, comfortable in no apparent distress. HEAD: Normocephalic. EYES: Normal reaction of pupils, equal size. NOSE: Clear with pink turbinates. THROAT: No erythema or exudates. NECK: No masses, no JVD. CHEST: No chest wall deformity. LUNGS: Equal air entry with few scattered rhonchi. Diminished more so on the right lung base. CVS: S1 and S2 normal with no audible murmurs, regular rhythm. ABDOMEN: No hepatosplenomegaly, normal bowel sounds, no guarding or rigidity. SPINE: No scoliosis or deformity SKIN: No rashes CENTRAL NERVOUS SYSTEM: No focal deficits, tone is normal in all 4 extremities. Extremities: There is no significant peripheral edema. No clubbing, no cyanosis. Peripheral pulses are intact. - Labs CBC & Chem 7: 08/08/16 06:57 08/08/16 06:57 Labs: Abnormal Lab Results - Last 24 Hours (Table) 08/08/16 08/08/16 Range/Units 06:57 06:57 RBC 3.50 L (4.30-5.90) m/uL Hgb 11.7 L (13.0-17.5) gm/dL Hct 34.4 L (39.0-53.0) % Plt Count 130 L (150-450) k/uL Glucose 121 H (74-99) mg/dL Microbiology - Last 24 Hours (Table) 08/07/16 06:44 Blood Culture - Preliminary Blood No Growth after 24 hours 08/05/16 19:03 Blood Culture Gram Stain - Final Blood Blood Culture - Final Proteus mirabilis 08/05/16 19:27 Urine Culture - Final Urine,Catheterized Proteus mirabilis Assessment and Plan Plan: Impression: #1 Acute bronchitis versus right lower lobe pneumonia. There is copious amounts of phlegm. Continue with Zosyn. #2 Chronic elevation of right hemidiaphragm, unclear etiology. #3 Parkinson's disease. #4 Hypertension. #5 Osteoarthritis. #6 Gastroesophageal reflux disease. #7 Benign prostatic hypertrophy. #8 Urinary tract infection with bacteremia of Proteus mirabilis. Plan: The patient was seen and evaluated by Dr. Dr. Tavera. Cultures were reviewed. He'll remain on Zosyn for now. He is again encouraged regarding the increased use of the incentive spirometer and cough and deep breathing exercises. Continue bronchodilators. We'll continue to follow.
[2016-08-08] MEDS: CYANOCOBALAMIN 500 MCG TAB PO SCH (16:38)
--- NOTE | 2016-08-08 21:33 | PN ---
DATE OF SERVICE: 08/08/2016 This 81 -year-old gentleman admitted with severe sepsis and secondary bacteremia with urinary tract infection. The possibility of pneumonitis or atelectasis is possibly a concern. The patient is being closely monitored at this time. Dr. Tavera is following the patient closely. The patient had Parkinson's and chronic right hemidiaphragmatic paralysis also. Past medical history reviewed. REVIEW OF SYSTEMS: CARDIOVASCULAR: No angina or palpitations. RESPIRATORY: As mentioned earlier. GASTROINTESTINAL: As mentioned earlier. : No dysuria. CENTRAL NERVOUS SYSTEM: No numbness or weakness. Current medications are: 1. Tylenol 650 p.o. t.i.d. p.r.n. 2. DuoNeb q.i.d. and p.r.n. 4. Sinemet 25/100 p.o. t.i.d. 5. Vitamin B12 500 mcg p.o. supper. 6. Voltaren gel. 7. Protonix. 8. Zosyn IV 3.375 IV q.8. 9. Zoloft 70 milligrams q.h.s. 10. Flomax 0.4 daily. PHYSICAL EXAMINATION: The patient is alert and oriented times three. Pulse 85, blood pressure is 139/60, respirations 18, temperature 98.2, pulse ox 97% on room air. HEENT: Conjunctivae normal. Oral mucosa moist. NECK: No jugular venous distention. No carotid bruits. No lymph node enlargement. CARDIOVASCULAR: S1, S2 muffled. No S3, no S4. RESPIRATORY: Breath sounds diminished at the bases. A few scattered rhonchi and crackles. Expiratory wheezing also present. ABDOMEN: Soft, nontender. No mass palpable. Legs: No edema. No swelling. Nervous system: Diffusely weak. LABS: At this time shows WBC 7.5, hemoglobin 11.7. Glucose 121. ASSESSMENT: 1. Possible urinary tract infection with sepsis, with Proteus mirabilis present on admission. 2. Right lower lobe pneumonia and possibly gram-negative with possible acute bronchopneumonia, with possible sepsis. 3. Change in mental status, metabolic encephalopathy, multifactorial. 4. Anemia, normocytic anemia of chronic disease. 5. Thrombocytopenia. 6. Increased random blood sugar. 7. History of gastroesophageal reflux disease. 8. History of degenerative joint disease. 9. History of prostate disorder. 10. History urinary tract infection. 11. History of Parkinson's. 12. History of gait dysfunction. 13. History of chronic back pain, history of left inguinal hernia repair. 14. FULL CODE. RECOMMENDATIONS AND DISCUSSION: In this 81-year-old gentleman who presented with multiple complex medical issues, we recommend to continue current medications, continue with symptomatic treatment. The patient is on IV Zosyn at this time. The Proteus isolated from the urine and blood susceptible to combination of Apresoline and Tazobactam. Otherwise, we will continue to monitor. Aspiration precautions and PT, OT evaluation. Prognosis guarded because of multiple complex medical issues. Deep venous thrombosis prophylaxis. See orders for further details. Further recommendations to follow. A copy of dictation being forwarded to Dr. Everett. We will recommend to cut down the IV fluids at this time. MTDD
[2016-08-08] MEDS: HEPARIN SODIUM,PORCINE 5,000 UNIT/ML 1 ML VIAL SQ SCH (21:54)
[2016-08-08] MEDS: SERTRALINE 50 MG TAB PO SCH (21:54)
[2016-08-08] MEDS: SODIUM CHLORIDE 0.9% 1,000 ML IV SCH (23:11)
[2016-08-09] MEDS: PIPERACILLIN-TAZOBACTAM 3.375 GM in DEXTROSE/WATER 1 50ML.BAG IVPB SCH ×2 (00:09→07:32)
[2016-08-09] MEDS: ACETAMINOPHEN TAB 325 MG TAB PO SCH ×2 (04:58→12:56)
[2016-08-09] MEDS: ARTIFICIAL TEARS-HYPROMELLOSE DROPS 15 ML BTL BOTH EYES SCH ×2 (04:59→11:03)
[2016-08-09 06:21] LABS: Basophils % (A) 0 %; CH 32.8; Eosinophils # (A) 0.3 k/uL (0-0.7); Eosinophils % (A) 4 %; HCT 35.5 % (39.0-53.0); HDW 2.52; HGB 12.2 gm/dL (13.0-17.5); Luc # (Auto) 0.23; Luc % (Auto) 3; Lymphocytes # (A) 1.1 k/uL (1.0-4.8); Lymphocytes % (A) 15 %; MCH 33.2 pg (25.0-35.0); MCHC 34.2 g/dL (31.0-37.0); MCV 96.9 fL (80.0-100.0); Mean Platelet Volume 7.8; Monocytes # (A) 0.7 k/uL (0-1.0); Monocytes % (A) 10 %; Neutrophils # (A) 4.6 k/uL (1.3-7.7); Neutrophils % (A) 68 %; RBC 3.67 m/uL (4.30-5.90); RDW 13.4 % (11.5-15.5); WBC 6.8 k/uL (3.8-10.6)
[2016-08-09 06:59] LABS: Anion Gap 8 mmol/L; Blood Urea Nitrogen 15 mg/dL (9-20); Calcium 9.8 mg/dL (8.4-10.2); Carbon Dioxide 25 mmol/L (22-30); Chloride 106 mmol/L (98-107); Glucose 112 mg/dL (74-99); Non-African American GFR(MDRD) >60 (>60 ml/min/1.73 sqM); Potassium 4.2 mmol/L (3.5-5.1); Sodium 139 mmol/L (137-145)
[2016-08-09] MEDS: IPRATROPIUM-ALBUTEROL 3 ML NEB INHALATION SCH ×2 (07:17→11:05)
[2016-08-09] MEDS: HEPARIN SODIUM,PORCINE 5,000 UNIT/ML 1 ML VIAL SQ SCH (07:29)
[2016-08-09] MEDS: TAMSULOSIN 0.4 MG CAP.ER.24H PO SCH (07:29)
[2016-08-09] MEDS: CARBIDOPA-LEVODOPA 25-100 MG 1 EACH TAB PO SCH ×2 (07:29→13:00)
[2016-08-09] MEDS: PANTOPRAZOLE 40 MG TABLET PO SCH (07:29)
[2016-08-09] MEDS: DICLOFENAC SODIUM GEL 100 GM TUBE TOPICAL SCH (07:30)
[2016-08-09 08:49] VITALS: RESP 18
[2016-08-09 09:19] VITALS: BP 153/77; TEMP 98.6
[2016-08-09 11:22] VITALS: PULSE 68
[2016-08-09] MEDS ORDERED: MULTIVITAMINS, THERA 1 EACH TAB PO SCH (12:00)
[2016-08-09] MEDS ORDERED: THIAMINE 100 MG TAB PO SCH (12:00)
[2016-08-09] MEDS ORDERED: FOLIC ACID 1 MG TAB PO SCH (12:00)
--- NOTE | 2016-08-09 13:04 | P.PN ---
Subjective 81-year-old male patient with known history of Parkinson's disease and chronic right hemidiaphragmatic paralysis/elevation coming in with increased cough and congestion along with fever. The patient is still cough and output purulent respiratory secretions however he remains afebrile hemodynamically stable at this point. His cough is weak however he is managing to do adequate amount of pulmonary toileting and bringing up significant amount of purulent respiratory secretions and mucus. I reviewed the chest x-ray underlying right lower lobe pneumonia cannot be completely excluded. Meanwhile, the exact cause for this right hemidiaphragmatic elevation and pelvis is not clear to me at this point. He has not had any thoracic surgery. No history of any trauma. No history of any C-spine injury. He is known to have BPH, previous urinary tract infection, gait dysfunction, osteoarthritis and reflux. The patient is seen again today 08/08/2016 in follow-up on the regular medical floor. He is awake and alert in no acute distress. He denies any worsening shortness of breath. He has a loose productive cough of yellow sputum. He's been afebrile. No leukocytosis. Maintaining O2 saturations in the 90s on 3 L/ m per nasal cannula. He's been hemodynamically stable. Blood and urine cultures are positive for Proteus mirabilis. He is maintained on Zosyn. The patient is seen again today 08/09/2016 in follow-up on the regular medical floor. He is doing better today as compared to yesterday. He is alert and oriented. He's been up in the [place] with assistance. He has been treated for his Proteus mirabilis blood and urine infections. The plan is to return to an extended care facility today. Objective - Vital Signs Vital signs: Vital Signs Temp 98.6 F 08/09/16 07:00 Pulse 68 08/09/16 11:21 Resp 18 08/09/16 08:00 BP 153/77 08/09/16 07:00 Pulse Ox 92 L 08/09/16 07:00 Intake & Output 08/08/16 08/09/16 08/09/16 18:59 06:59 18:59 Intake Total 450 290 Output Total 2700 1200 Balance -2250 -910 Weight 81.647 kg Intake: Intake, IV Titration 50 50 Amount Piperacillin-Tazobactam 3 50 50 .375 gm In Dextrose/Water 1 50ml.bag @ 12.5 mls/hr IVPB Q8HR [facility] Rx#: [id number] Oral 400 240 Output: Urine 2700 1200 Other: Voiding Method Bedside Commode Bedside Commode Bedside Commode Urinal Urinal Urinal Diaper Diaper Diaper Incontinent # Voids 3 3 # Bowel Movements 1 1 2 - Exam GENERAL EXAM: Frail, cachectic. Alert, comfortable in no apparent distress. HEAD: Normocephalic. EYES: Normal reaction of pupils, equal size. NOSE: Clear with pink turbinates. THROAT: No erythema or exudates. NECK: No masses, no JVD. CHEST: No chest wall deformity. LUNGS: Equal air entry with few scattered rhonchi. Diminished more so on the right lung base. CVS: S1 and S2 normal with no audible murmurs, regular rhythm. ABDOMEN: No hepatosplenomegaly, normal bowel sounds, no guarding or rigidity. SPINE: No scoliosis or deformity SKIN: No rashes CENTRAL NERVOUS SYSTEM: No focal deficits, tone is normal in all 4 extremities. Extremities: There is no significant peripheral edema. No clubbing, no cyanosis. Peripheral pulses are intact. - Labs CBC & Chem 7: 08/09/16 06:08 08/09/16 06:08 Labs: Abnormal Lab Results - Last 24 Hours (Table) 08/09/16 08/09/16 Range/Units 06:08 06:08 RBC 3.67 L (4.30-5.90) m/uL Hgb 12.2 L (13.0-17.5) gm/dL Hct 35.5 L (39.0-53.0) % Glucose 112 H (74-99) mg/dL Microbiology - Last 24 Hours (Table) 08/08/16 06:57 Blood Culture - Preliminary Blood No Growth after 24 hours 08/07/16 06:44 Blood Culture - Preliminary Blood No Growth after 48 hours 08/08/16 16:15 Gram Stain - Preliminary Sputum Assessment and Plan Plan: Impression: #1 Acute bronchitis versus right lower lobe pneumonia. There is copious amounts of phlegm. Continue with Zosyn. #2 Chronic elevation of right hemidiaphragm, unclear etiology. #3 Parkinson's disease. #4 Hypertension. #5 Osteoarthritis. #6 Gastroesophageal reflux disease. #7 Benign prostatic hypertrophy. #8 Urinary tract infection with bacteremia of Proteus mirabilis. Plan: The patient was seen and evaluated by Dr. Tavera. Cultures were reviewed. He will be transitioned to Augmentin. He'll need 2 weeks of therapy. He is cleared for discharge from the pulmonary standpoint. We'll follow-up with him in our office in 1-2 weeks' time and repeat a chest x-ray then.
--- NOTE | 2016-08-09 14:09 | DS ---
DATE OF ADMISSION: 08/05/2016 DATE OF DISCHARGE: FINAL DIAGNOSES: 1. Acute urinary tract infection with sepsis with Proteus mirabilis, present on admission. 2. Right lower lobe pneumonia, possibly gram-negative with possible acute bronchopneumonia with possible sepsis, present on admission. 3. Change in mental status, metabolic encephalopathy, multifactorial, improved. 4. Anemia, normocytic anemia of chronic disease. 5. Thrombocytopenia. 6. Increased random blood sugar. 7. History of gastroesophageal reflux disease. 8. History of degenerative joint disease. 9. History of prostate disorder. 10. History urinary tract infection. 11. History of Parkinson's. 12. Gait dysfunction. 13. History of chronic back pain. 14. History of left inguinal hernia repair. 15. FULL CODE. DISCHARGE DISPOSITION: Patient will be discharged in a stable condition with guarded prognosis. Total time taken is 35 minutes. Patient will be transferred back to [facility]. HISTORY OF PRESENT ILLNESS: This is an 81-year-old gentleman with a past medical history of multiple medical problems, was admitted with UTI with sepsis and proteus mirabilis and bacteremia. The patient was given antibiotics, improved significantly, sensorium improved. On exam, vitals are stable. CARDIOVASCULAR SYSTEMS: S1, S2. RESPIRATORY: A few rhonchi. Dr. Tavera saw the patient during the hospitalization. DISCHARGE ADVICE: 1. Diet is cardiac. 2. Activity as tolerated. 3. Follow up with Dr. Everett as recommended. 4. CBC, BMP in ECF. Medications are as follows: 1. Tylenol 650 p.o. t.i.d. p.r.n. 2. Norvasc 2.5 mg daily. 3. Augmentin 875 mg p.o. b.i.d. for 10 days. 4. Artificial tears. 5. Carbidopa levodopa 25/100 p.o. t.i.d. 6. Vitamin B12 five hundred mcg p.o. daily. 7. Voltaren gel for local application. 8. Folic acid 1 mg daily. 9. Albuterol Atrovent updrafts q.i.d. and p.r.n. 10. Multivitamin 1 p.o. daily. 11. Prilosec 20 mg q.a.m. 12. Senna 8.6 p.o. daily. 13. Zoloft 75 mg q.h.s. 14. Flomax 0.4 daily. 15. Thiamine 100 mg p.o. daily. 16. Ultram 50 mg q.[address] p[address] Follow with Dr. Tavera as advised. Once again, the patient will be discharged in a stable condition with guarded prognosis.
== END 2016-08-09 16:10 | DRG 871 ==
LOC: EC 18:53 → 5MS5E 21:07
PROVIDERS: ADMIT Internal Medicine; ATTEND Internal Medicine
DX: A41.59 Other Gram-negative sepsis (principal); G93.41 Metabolic encephalopathy; J96.01 Acute respiratory failure with hypoxia; J15.6 Pneumonia due to other Gram-negative bacteria; N39.0 Urinary tract infection, site not specified; D69.6 Thrombocytopenia, unspecified; G20 Parkinson's disease; D63.8 Anemia in other chronic diseases classified elsewhere; R65.20 Severe sepsis without septic shock; I10 Essential (primary) hypertension; J98.6 Disorders of diaphragm; K21.9 Gastro-esophageal reflux disease without esophagitis; N40.0 Benign prostatic hyperplasia without lower urinary tract symptoms; F32.9 Major depressive disorder, single episode, unspecified; G89.29 Other chronic pain; M54.9 Dorsalgia, unspecified; R26.9 Unspecified abnormalities of gait and mobility; M54.5 Low back pain; M19.012 Primary osteoarthritis, left shoulder; M19.011 Primary osteoarthritis, right shoulder; R73.9 Hyperglycemia, unspecified; Z79.899 Other long term (current) drug therapy; Z87.440 Personal history of urinary (tract) infections
CPT/HCPCS: 36415; 71020; 80048; 80053; 81001; 82533; 82550; 82553; 83605; 83735; 83880; 84484; 85025; 85027; 85610; 85730; 87040; 87070; 87077; 87086; 87186; 87205; 93005; 94640; 94760

== ENCOUNTER 2017-05-24 11:55 | Inpatient (IN) | payer MEDICARE, OTHER ==
[2017-05-24] MEDS ORDERED: MORPHINE SULFATE/PF 10MG/10ML VL IVP STA ×2 (12:13→13:05)
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
[2017-05-24 12:42] LABS: ALT 28 U/L (21-72); AST 26 U/L (17-59); Albumin 3.9 g/dL (3.5-5.0); Alkaline Phosphatase 109 U/L (38-126); Anion Gap 10 mmol/L; Blood Urea Nitrogen 23 mg/dL (9-20); Calcium 10.1 mg/dL (8.4-10.2); Carbon Dioxide 26 mmol/L (22-30); Chloride 108 mmol/L (98-107); Glucose 109 mg/dL (74-99); Potassium 4.6 mmol/L (3.5-5.1); Sodium 144 mmol/L (137-145); Total Bilirubin 0.7 mg/dL (0.2-1.3); Total Protein 6.9 g/dL (6.3-8.2)
[2017-05-24 12:43] LABS: INR 1.1 (<1.2); Partial Thromboplastin Time 26.9 sec (22.0-30.0); Prothrombin Time 10.7 sec (9.0-12.0)
[2017-05-24 12:47] LABS: Basophils % (A) 0 %; Eosinophils # (A) 0.1 k/uL (0-0.7); Eosinophils % (A) 1 %; HCT 40.8 % (39.0-53.0); HGB 13.7 gm/dL (13.0-17.5); Lymphocytes # (A) 1.6 k/uL (1.0-4.8); Lymphocytes % (A) 12 %; MCH 31.9 pg (25.0-35.0); MCHC 33.6 g/dL (31.0-37.0); Mean Platelet Volume 7.5; Monocytes # (A) 0.7 k/uL (0-1.0); Monocytes % (A) 5 %; Neutrophils % (A) 81 %; Platelet Count 170 k/uL (150-450); RDW 12.7 % (11.5-15.5); WBC 13.5 k/uL (3.8-10.6)
[2017-05-24 12:55] LABS: MCV 94.8 fL (80.0-100.0)
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
[2017-05-24] MEDS ORDERED: SODIUM CHLORIDE 0.9% 500 ML IV STA (15:22)
[2017-05-24] MEDS ORDERED: ONDANSETRON 4 MG/2 ML VIAL IVP PRN (15:36)
[2017-05-24] MEDS ORDERED: NALOXONE 0.4 MG/ML 1 ML VIAL IV PRN (15:36)
[2017-05-24] MEDS ORDERED: MORPHINE SULFATE/PF 10MG/10ML VL IV PRN (15:36)
[2017-05-24] MEDS ORDERED: SENNOSIDES 8.6 MG TAB PO PRN (15:38)
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
[2017-05-24] MEDS: SODIUM CHLORIDE 0.9% 1,000 ML IV SCH (17:11)
[2017-05-24] MEDS ORDERED: traMADol 50 MG TAB PO SCH (20:00)
[2017-05-24] MEDS: SERTRALINE 25 MG TAB PO SCH (20:53)
[2017-05-24] MEDS: CARBIDOPA-LEVODOPA 25-100 MG 1 EACH TAB PO SCH (20:53)
[2017-05-24] MEDS: ARTIFICIAL TEARS-HYPROMELLOSE DROPS 15 ML BTL BOTH EYES SCH (20:53)
[2017-05-24] MEDS: MULTIVITAMINS, THERA 1 EACH TAB PO SCH (20:54)
[2017-05-24] MEDS: FOLIC ACID 1 MG TAB PO SCH (20:54)
[2017-05-24] MEDS: ACETAMINOPHEN TAB 325 MG TAB PO PRN (20:54)
[2017-05-25] MEDS: DICLOFENAC SODIUM GEL 100 GM TUBE TOPICAL SCH ×3 (00:18→22:30)
[2017-05-25] MEDS: ARTIFICIAL TEARS-HYPROMELLOSE DROPS 15 ML BTL BOTH EYES SCH ×4 (00:19→19:01)
[2017-05-25] MEDS: CARBIDOPA-LEVODOPA 25-100 MG 1 EACH TAB PO SCH ×3 (07:38→21:15)
[2017-05-25] MEDS: TAMSULOSIN 0.4 MG CAP.ER.24H PO SCH (07:53)
[2017-05-25] MEDS: PANTOPRAZOLE 40 MG TABLET PO SCH (07:53)
[2017-05-25] MEDS ORDERED: IPRATROPIUM-ALBUTEROL 3 ML NEB INHALATION PRN (08:40)
[2017-05-25] MEDS ORDERED: amLODIPine 5 MG TAB PO SCH (09:00)
[2017-05-25] MEDS: IPRATROPIUM-ALBUTEROL 3 ML NEB INHALATION SCH ×2 (13:21→21:04)
[2017-05-25] MEDS: SODIUM CHLORIDE 0.9% 1,000 ML IV SCH ×3 (13:56→23:14)
[2017-05-25] MEDS ORDERED: SODIUM CHLORIDE 0.9% 1,000 ML IV ONE (14:12)
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
[2017-05-25] MEDS ORDERED: ceFAZolin IN SWFI 2 GM/20 ML SYRINGE IVP STA (14:54)
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
[2017-05-25] MEDS ORDERED: PROPOFOL 10 MG/ML 20 ML VIAL IV ONE (15:10)
[2017-05-25] MEDS ORDERED: SODIUM CHLORIDE 0.9% 100 ML BAG ONE (15:10)
[2017-05-25] MEDS ORDERED: MORPHINE SULFATE 10 MG/ML SYRINGE ONE (15:10)
[2017-05-25] MEDS ORDERED: fentaNYL (PF) 50 MCG/ML 2 ML AMP ONE (15:10)
[2017-05-25] MEDS ORDERED: PHENYLEPHRINE-0.9% NACL SYG 1 MG/10 ML SYRINGE ONE (15:10)
[2017-05-25] MEDS ORDERED: MIDAZOLAM 2 MG/2 ML VIAL ONE (15:10)
[2017-05-25] MEDS ORDERED: TRANEXAMIC ACID 1,000 MG/10 ML VIAL ONE (15:10)
[2017-05-25] MEDS ORDERED: KETAMINE 10 MG/ML 20 ML VIAL ONE (15:10)
[2017-05-25] MEDS ORDERED: ceFAZolin 3,000 MG in SODIUM CHLORIDE 0.9% IRRIGATIO 3,000 ML IRRIGATION ONE (15:30)
[2017-05-25] MEDS ORDERED: LACTATED RINGERS 1,000 ML IV ONE (16:17)
[2017-05-25] MEDS ORDERED: TRANEXAMIC ACID 1,000 MG in SODIUM CHLORIDE 0.9% 50 ML IVPB STA (16:33)
[2017-05-25] MEDS ORDERED: HYDROcodone/APAP 5-325MG 1 EACH TAB PO PRN (16:59)
[2017-05-25] MEDS ORDERED: NALOXONE 0.4 MG/ML 1 ML VIAL IV PRN (16:59)
[2017-05-25] MEDS ORDERED: MORPHINE SULFATE/PF 10MG/10ML VL IV PRN ×4 (16:59)
[2017-05-25] MEDS ORDERED: ONDANSETRON 4 MG/2 ML VIAL IVP PRN (16:59)
--- NOTE | 2017-05-25 16:59 | P.OP ---
Date of Procedure: 05/25/17 Preoperative Diagnosis: Displaced right hip femoral neck fracture Postoperative Diagnosis: Displaced right hip femoral neck fracture Procedure(s) Performed: Right hip hemiarthroplasty Implants: 1. Depuy Corail cementless femoral stem K a size 18 standard collar 2. Depuy metallic femoral head 54 mm with a +5 mm spacer Anesthesia: spinal Surgeon: Berhane Yuen Film Vault Supervisor #1: Ted Eisenberg Estimated Blood Loss (ml): 300 Pathology: other (Femoral head) Condition: stable Disposition: PACU Indications for Procedure: 82-year-old patient seen with a displaced right hip femoral neck fracture. I recommended right hip hemiarthroplasty. Consent regarding procedure was obtained and medical clearance was provided. Operative Findings: See description of procedure Description of Procedure: The patient was taken to the operative suite. The patient underwent a spinal anesthetic by the primary a south. The patient received preoperative IV antibiotics. The patient was placed into a lateral position with the right hip up a appropriate padding of the bony prominence. The right hip was prepped and draped in the normal sterile orthopedic fashion. I made a standard posterior lateral incision sharply through skin. Dissection taken down to the iliotibial band. I incised the iliotibial band. I dissected down to the external rotators. We did achieve some superficial hemostasis via electrocautery. We incised those short external rotators and made a T-incision the capsule. We evacuated hemarthrosis. There was an obvious distress femoral neck fracture. I removed some of the residual neck. I move the fracture femoral head. We measured that to 54 mm head. We then began serial broaching until we reached a size 18 which gave us excellent rotational stability. I then trialed a 54 mm head with a +5 spacer and reduced the hip. We took with range of motion and noted good stability and good overall alignment. We now dislocated the hip. We irrigated the wound copiously with pulse lavage mechanical irrigation. We now introduced our size 18 Corail collared press-fit femoral stem which had excellent purchase. There a Ventress stability of the stem. We now tapped down our 54 mm endoprosthetic head with a +5 mm spacer. We reduced the hip. We overall alignment and good stability with range of motion. We irrigated the wound with pulse lavage mechanical irrigation. Additional hemostasis achieved electrocautery. I repaired the capsule with #1 Vicryl. I repaired the short external rotators with #1 Vicryl. I repaired the iliotibial band with #1 Vicryl. The subcu soft tissues were repaired in layers with 2-0 Vicryl. The skin is proximal skin [place]. We applied sterile dressings. The patient then transferred to a bed and recovery stable condition. Babak CHURCH assisted procedure.
--- NOTE | 2017-05-25 18:04 | XR ---
PROCEDURE: XR Hip Limited RT - 1 view DATE AND TIME: 05/25/2017 5:28 PM REFERRING PHYSICIAN: Berhane Yuen DO CLINICAL INDICATION: PHH, Prosthetic alignment TECHNIQUE: AP radiograph. COMPARISON: 04/24/2016 FINDINGS: Right hip prosthesis appears in anatomic positioning and alignment. Postprocedural changes noted, no unexpected findings. IMPRESSION: Post procedure radiograph.
[2017-05-25] MEDS: FOLIC ACID 1 MG TAB PO SCH ×2 (21:15→22:12)
[2017-05-25] MEDS: SERTRALINE 25 MG TAB PO SCH ×2 (21:15→22:12)
[2017-05-25] MEDS: MULTIVITAMINS, THERA 1 EACH TAB PO SCH ×2 (21:15→22:12)
[2017-05-25 21:18] LABS: Basophils % (A) 0 %; Eosinophils # (A) 0.1 k/uL (0-0.7); Eosinophils % (A) 1 %; HCT 41.1 % (39.0-53.0); Lymphocytes % (A) 7 %; MCH 31.1 pg (25.0-35.0); MCHC 31.6 g/dL (31.0-37.0); MCV 98.4 fL (80.0-100.0); Mean Platelet Volume 7.7; Monocytes # (A) 1.1 k/uL (0-1.0); Monocytes % (A) 8 %; Neutrophils # (A) 11.6 k/uL (1.3-7.7); Neutrophils % (A) 83 %; Platelet Count 135 k/uL (150-450); RBC 4.18 m/uL (4.30-5.90); RDW 12.7 % (11.5-15.5); WBC 14.1 k/uL (3.8-10.6)
[2017-05-25] MEDS ORDERED: FUROSEMIDE 10 MG/ML 4 ML VIAL IV STA (21:50)
[2017-05-25] MEDS: SENNOSIDES-DOCUSATE SODIUM 1 EACH TAB PO SCH (22:11)
[2017-05-25 22:12] LABS: ABG Base Excess 0.4 mmol/L; ABG HCO3 25 mmol/L (21-25); ABG Oxygen Saturation 94.6 % (94-97); ABG PCO2 37 mmHg (35-45); ABG PH 7.44 (7.35-7.45); ABG PO2 66 mmHg (83-108); ABG TCO2 26 mmol/L (19-24)
--- NOTE | 2017-05-25 22:15 | XR ---
EXAMINATION: XR chest 1V portable DATE AND TIME: 05/25/2017 10:09 PM ORDERING PROVIDER: Brenda Mills CLINICAL INDICATION: possible aspiration pneumonia TECHNIQUE: AP upright portable COMPARISON: 05/24/2017 supine chest x-ray at 3:00 PM DESCRIPTION: Markedly elevated right hemidiaphragm redemonstrated. There is moderately prominent silh ouetting of the pulmonary vasculature bilaterally and diffusely by an increased reticular pattern of increased density with several septal lines. The pattern is consistent with interstitial phase pulmon wendy edema. No definite lung consolidation, but it is noted that the right middle lobe and right lower lobe canno t be evaluated with the elevation of the right diaphragm. No abnormal gas collections. Cardiac silhouette enlarged, similar to the prior study IMPRESSION: INTERSTITIAL PHASE PULMONARY EDEMA, MILDLY ADVANCED FOR COMPARED TO THE PRIOR STUDY. Should further p ulmonary-pleural information be necessary would consider supine chest CT without contrast.
[2017-05-25 23:59] LABS: Basophils % (A) 0 %; Eosinophils # (A) 0.1 k/uL (0-0.7); Eosinophils % (A) 1 %; HCT 40.1 % (39.0-53.0); HGB 12.9 gm/dL (13.0-17.5); Lymphocytes # (A) 0.7 k/uL (1.0-4.8); Lymphocytes % (A) 6 %; MCHC 32.2 g/dL (31.0-37.0); MCV 96.2 fL (80.0-100.0); Monocytes # (A) 0.8 k/uL (0-1.0); Monocytes % (A) 7 %; Neutrophils # (A) 10.5 k/uL (1.3-7.7); Neutrophils % (A) 86 %; Platelet Count 149 k/uL (150-450); RBC 4.17 m/uL (4.30-5.90); RDW 12.7 % (11.5-15.5); WBC 12.3 k/uL (3.8-10.6)
[2017-05-26] MEDS: ACETAMINOPHEN IV (For NPO) 1,000 MG in EMPTY BAG 1 BAG IVPB SCH ×4 (00:04→21:08)
[2017-05-26] MEDS: ARTIFICIAL TEARS-HYPROMELLOSE DROPS 15 ML BTL BOTH EYES SCH ×4 (02:01→21:08)
[2017-05-26] MEDS: ceFAZolin IN SWFI 2 GM/20 ML SYRINGE IVP SCH ×2 (02:32→09:07)
[2017-05-26] MEDS: PIPERACILLIN-TAZOBACTAM 3.375 GM in DEXTROSE/WATER 1 50ML.BAG IVPB SCH ×3 (02:32→16:23)
[2017-05-26] MEDS: CARBIDOPA-LEVODOPA 25-100 MG 1 EACH TAB PO SCH ×3 (06:32→21:09)
[2017-05-26] MEDS: PANTOPRAZOLE 40 MG TABLET PO SCH (06:33)
[2017-05-26] MEDS: TAMSULOSIN 0.4 MG CAP.ER.24H PO SCH (07:59)
[2017-05-26] MEDS: IPRATROPIUM-ALBUTEROL 3 ML NEB INHALATION SCH ×2 (08:21→13:17)
[2017-05-26] MEDS: DICLOFENAC SODIUM GEL 100 GM TUBE TOPICAL SCH ×2 (09:11→21:09)
[2017-05-26] MEDS: ENOXAPARIN 30 MG/0.3 ML SYRINGE SQ SCH (09:47)
--- NOTE | 2017-05-26 10:31 | P.PN ---
Subjective Progress Note Date: 05/26/17 Principal diagnosis: Status post right hip hemiarthroplasty Patient is seen today resting in his hospital bed, he was transferred up to the selective care unit And is being followed by pulmonology. There was an episode of respiratory distress, he required and is continuing to require 10 L of O2. He seems comfortable lying in bed today, he answers most my questions accurately. Physical therapy is in the room with attempting to get him out of bed. He is utilizing the abductor pillow. He notes improvement in the pain involving the right hip. Objective - Vital Signs Vital signs: Vital Signs Temp 97.8 F 05/26/17 07:46 Pulse 72 05/26/17 08:46 Resp 16 05/26/17 08:00 BP 125/63 05/26/17 07:46 Pulse Ox 95 05/26/17 08:46 Intake & Output 05/25/17 05/26/17 05/26/17 18:59 06:59 18:59 Intake Total 1801 Output Total 400 1360 Balance 1401 -1360 Weight 93.5 kg Intake: IV 1801 Sodium Chloride 0.9% 1, 300 000 ml @ 100 mls/hr IV . Q10H [facility] Rx#:[id number] Output: Urine 100 1360 Estimated Blood Loss 300 Other: Voiding Method Indwelling Catheter Indwelling Catheter # Voids 1 1 - Exam Right lower extremity: Incision is clean, dry, and intact. The [place] is in good condition. There is minimal soft tissue swelling and ecchymosis surrounding the medial and lateral aspects of the incision. Calf is soft, no tenderness with palpation. Plantar flexion, dorsiflexion, EHL, FHL are intact. Sensory exam to light touch throughout the extremity is intact, dorsal pedis pulses 2+. - Labs CBC & Chem 7: 05/25/17 23:46 05/24/17 12:24 Labs: Abnormal Lab Results - Last 24 Hours (Table) 05/25/17 05/25/17 05/25/17 Range/Units 20:45 22:08 23:46 WBC 14.1 H 12.3 H (3.8-10.6) k/uL RBC 4.18 L 4.17 L (4.30-5.90) m/uL Hgb 12.9 L (13.0-17.5) gm/dL Plt Count 135 L 149 L (150-450) k/uL Neutrophils # 11.6 H 10.5 H (1.3-7.7) k/uL Lymphocytes # 0.7 L (1.0-4.8) k/uL Monocytes # 1.1 H (0-1.0) k/uL ABG pO2 66 L (83-108) mmHg ABG Total CO2 26 H (19-24) mmol/L Assessment and Plan Plan: Assessment: 1. Postop day #1 status post right hip hemiarthroplasty Plan: 1. Pain control, continue use of low-dose oral medication 2. Utilize abductor pillow while lying in bed 3. PT evaluation with walker training 4. GI and DVT prophylaxis, continue Lovenox during inpatient stay 5. Other medical services manager and recommendations 6. Daily dressing changes 7. We'll continue to follow the patient during inpatient stay Time with Patient: Less than 30
--- NOTE | 2017-05-26 13:06 | P.PN ---
Subjective Progress Note Date: 05/26/17 Principal diagnosis: Right hip repair Progress note dated 05/26/2017 This is an 82-year-old male that we saw in consultation yesterday. He sustained a fall at her right femoral neck fracture. He does have a history of chronically elevated right hemidiaphragm a previous history of acute hypoxemic respiratory failure general medical debility gait dysfunction Parkinson's disease hypertension osteoarthritis GERD and BPH and is a long-term resident at [facility]. He had surgery yesterday. Everything apparently went well. Sometimes throughout the night, I was called by the floor nurses. The patient was a rapid response team called. When the my ICU nurses went down to evaluate the patient. Initially, the primary physician wanted the patient transferred up to the ICU. A couple things were going on including a saturation that was a bit low as well as a temperature elevation. The patient was moved to the sixth floor. He received additional high flow oxygen therapy and saturations improved. Today he is doing relatively well. He probably could be transferred back down to the third floor. Feeling much better. Not sure exactly what happened to him. He denies any temperature elevation now. No pain or shortness of breath. No coughing or wheezing. Not producing any phlegm. No nausea vomiting or diarrhea. His only complaint is in the right hip area where he is having pain from the recent surgery. Objective - Vital Signs Vital signs: Vital Signs Temp 97.9 F 05/26/17 11:01 Pulse 71 05/26/17 11:32 Resp 18 05/26/17 11:32 BP 119/58 05/26/17 11:01 Pulse Ox 92 L 05/26/17 11:01 Intake & Output 05/25/17 05/26/17 05/26/17 18:59 06:59 18:59 Intake Total 1801 Output Total 400 1360 Balance 1401 -1360 Weight 93.5 kg Intake: IV 1801 Sodium Chloride 0.9% 1, 300 000 ml @ 100 mls/hr IV . Q10H [facility] Rx#:[id number] Output: Urine 100 1360 Estimated Blood Loss 300 Other: Voiding Method Indwelling Catheter Indwelling Catheter # Voids 1 1 - Exam No acute distress, oriented 3. The patient is on high flow oxygen therapy. HEENT examination is grossly unremarkable. Mucous membranes are moist. No oral lesions. Neck supple. Full range of motion. No adenopathy thyromegaly or neck vein distention. Cardiovascular examination reveals regular rhythm rate. S1-S2 normal. No S3 or S4. No discernible murmur noted. Lungs reveal clear breath sounds. Her sounds are equal bilaterally. No adventitious lung sounds including wheezes rhonchi or crackles. Abdomen soft bowel sounds are heard. No masses or tenderness. Extremities are intact. No cyanosis clubbing or edema. Skin is without rash or lesion. Neurologic examination reveals a tremor from his Parkinson's disease. - Labs CBC & Chem 7: 05/25/17 23:46 05/24/17 12:24 Labs: Abnormal Lab Results - Last 24 Hours (Table) 05/25/17 05/25/17 05/25/17 Range/Units 20:45 22:08 23:46 WBC 14.1 H 12.3 H (3.8-10.6) k/uL RBC 4.18 L 4.17 L (4.30-5.90) m/uL Hgb 12.9 L (13.0-17.5) gm/dL Plt Count 135 L 149 L (150-450) k/uL Neutrophils # 11.6 H 10.5 H (1.3-7.7) k/uL Lymphocytes # 0.7 L (1.0-4.8) k/uL Monocytes # 1.1 H (0-1.0) k/uL ABG pO2 66 L (83-108) mmHg ABG Total CO2 26 H (19-24) mmol/L Assessment and Plan Assessment: Assessment Postop day #1 status post repair of a right femoral neck fracture Acute episode of respiratory decline desaturation and mild temperature elevation , of unclear etiology Chronic elevated right hemidiaphragm History of acute hypoxemic respiratory failure. General medical debility History of gait dysfunction, secondary to Parkinson's disease History of Parkinson's disease History of hypertension Osteoarthritis GERD BPH Plan: Plan dated 05/26/2017 The patient's chest x-ray from last night shows a bit of heart failure. He does have a chronically elevated right hemidiaphragm. White count is 12.3 hemoglobin 12.9 hematocrit 40.1 and platelet count was 149,000. Arterial blood gases on 50% show a PaO2 of 66 a PaCO2 37 and a pH of 7.44. His lactic acid was 1.8. Currently, the patient looks like he is doing much better. We'll make sure they turned on his IV fluids to KVO. Chest x-ray will be ordered for tomorrow. No additional recommendations are made. The patient could move back down to the third floor surgical area. Additional recommendations and suggestions are forthcoming. His medications are reviewed. Time with Patient: Less than 30
[2017-05-26] MEDS: HYDROcodone/APAP 5-325MG 1 EACH TAB PO PRN ×2 (13:56→22:28)
[2017-05-26] MEDS: KETOROLAC 30 MG/ML 1 ML VIAL IVP PRN (14:34)
[2017-05-26 16:30] LABS: Appearance,Urine Clear (Clear); Bilirubin,Urine Negative (Negative); Blood,Urine Small (Negative); Color,Urine Yellow; Glucose,Urine (UA) Negative (Negative); Hyaline Casts,Urine 4 /lpf (0-2); Ketones,Urine Negative (Negative); Leukocyte Esterase,Urine Large (Negative); Mucus,Urine Rare /hpf; Nitrite,Urine Negative (Negative); PH, Urine 5.5 (5.0-8.0); Protein,Urine Negative (Negative); RBC,Urine 18 /hpf (0-5); Specific Gravity,Urine 1.013 (1.001-1.035); Urobilinogen,Urine <2.0 mg/dL (<2.0); WBC,Urine 65 /hpf (0-5)
--- NOTE | 2017-05-26 17:40 | P.PN ---
Subjective Patient successfully underwent right hip arthroplasty patient is comparing of severe pain in the right hip still short of breath is on high flow oxygen consider secondary to pulmonary edema patient was given a dose of Lasix pulmonology evaluated the patient. Constitutional: Denied any fatigue denied any fever. Cardio vascular: denied any chest pain, palpitations Gastrointestinal denied any nausea vomiting Pulmonary: Denied any shortness of breath cough Neurologic denied any new focal deficits Objective - Vital Signs Vital signs: Vital Signs Temp 97.6 F 05/26/17 17:14 Pulse 67 05/26/17 17:14 Resp 16 05/26/17 17:14 BP 103/62 05/26/17 17:14 Pulse Ox 95 05/26/17 17:14 Intake & Output 05/25/17 05/26/17 05/26/17 18:59 06:59 18:59 Intake Total 1801 178 Output Total 400 1360 750 Balance 1401 -1360 -572 Weight 93.5 kg Intake: IV 1801 60 Sodium Chloride 0.9% 1, 300 60 000 ml @ 100 mls/hr IV . Q10H [facility] Rx#:[id number] Oral 118 Output: Urine 100 1360 750 Estimated Blood Loss 300 Other: Voiding Method Indwelling Catheter Indwelling Catheter # Voids 1 1 - Exam PHYSICAL EXAMINATION: GENERAL: The patient is alert and oriented x2 which is his baseline, not in any acute distress. Well developed, well nourished. Tremors generalized HEENT: Pupils are round and equally reacting to light. EOMI. No scleral icterus. No conjunctival pallor. Normocephalic, atraumatic. No pharyngeal erythema. No thyromegaly. CARDIOVASCULAR: S1 and S2 present. No murmurs, rubs, or gallops. PULMONARY: Chest is clear to auscultation, no wheezing or crackles. ABDOMEN: Soft, nontender, nondistended, normoactive bowel sounds. No palpable organomegaly. MUSCULOSKELETAL: Deferred to orthopedic surgery EXTREMITIES: No cyanosis, clubbing, or pedal edema. NEUROLOGICAL: Gross neurological examination did not reveal any focal deficits. SKIN: No rashes. - Labs CBC & Chem 7: 05/25/17 23:46 05/24/17 12:24 Labs: Abnormal Lab Results - Last 24 Hours (Table) 05/25/17 05/25/17 05/25/17 Range/Units 20:45 22:08 23:46 WBC 14.1 H 12.3 H (3.8-10.6) k/uL RBC 4.18 L 4.17 L (4.30-5.90) m/uL Hgb 12.9 L (13.0-17.5) gm/dL Plt Count 135 L 149 L (150-450) k/uL Neutrophils # 11.6 H 10.5 H (1.3-7.7) k/uL Lymphocytes # 0.7 L (1.0-4.8) k/uL Monocytes # 1.1 H (0-1.0) k/uL ABG pO2 66 L (83-108) mmHg ABG Total CO2 26 H (19-24) mmol/L Urine Blood (Negative) Ur Leukocyte Esterase (Negative) Urine RBC (0-5) /hpf Urine WBC (0-5) /hpf Hyaline Casts (0-2) /lpf Urine Mucus (None) /hpf 05/26/ Range/Units 15:57 WBC (3.8-10.6) k/uL RBC (4.30-5.90) m/uL Hgb (13.0-17.5) gm/dL Plt Count (150-450) k/uL Neutrophils # (1.3-7.7) k/uL Lymphocytes # (1.0-4.8) k/uL Monocytes # (0-1.0) k/uL ABG pO2 (83-108) mmHg ABG Total CO2 (19-24) mmol/L Urine Blood Small H (Negative) Ur Leukocyte Esterase Large H (Negative) Urine RBC 18 H (0-5) /hpf Urine WBC 65 H (0-5) /hpf Hyaline Casts 4 H (0-2) /lpf Urine Mucus Rare H (None) /hpf Assessment and Plan Plan: -Right hip arthroplasty postoperative day one: Continue present medication patient is comparing of pain in the right hip area. -Pulmonary edema: Secondary to IV fluids he received, was given a dose of Lasix. -Parkinson's with baseline tremor: Tramadol will be discontinued because of tremor. 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 DVT prophylaxis as per primary service
[2017-05-26] MEDS: SODIUM CHLORIDE 0.9% 1,000 ML IV SCH (18:11)
[2017-05-26] MEDS: SENNOSIDES-DOCUSATE SODIUM 1 EACH TAB PO SCH (21:10)
[2017-05-26] MEDS: MULTIVITAMINS, THERA 1 EACH TAB PO SCH (22:28)
[2017-05-26] MEDS: SERTRALINE 25 MG TAB PO SCH (22:28)
[2017-05-26] MEDS: FOLIC ACID 1 MG TAB PO SCH (22:28)
[2017-05-27] MEDS: IPRATROPIUM-ALBUTEROL 3 ML NEB INHALATION SCH ×4 (00:13→19:14)
[2017-05-27] MEDS: PIPERACILLIN-TAZOBACTAM 3.375 GM in DEXTROSE/WATER 1 50ML.BAG IVPB SCH ×2 (03:33→09:07)
[2017-05-27] MEDS: ARTIFICIAL TEARS-HYPROMELLOSE DROPS 15 ML BTL BOTH EYES SCH ×4 (03:33→20:35)
--- NOTE | 2017-05-27 07:38 | XR ---
EXAMINATION TYPE: XR chest 1V portable DATE OF EXAM: 05/27/2017 HISTORY: CHF. REFERENCE: Previous study dated 05/25/2017. FINDINGS: There is apparent elevation right hemidiaphragm. Heart size is obscured. There is vascular congestion and mild interstitial change. The overall appearance may have improved slightly. I suspect small, bilateral effusions. IMPRESSION: MILD IMPROVEMENT IN THE PATIENT'S PULMONARY EDEMA.
[2017-05-27] MEDS: ENOXAPARIN 30 MG/0.3 ML SYRINGE SQ SCH (08:49)
[2017-05-27] MEDS: CARBIDOPA-LEVODOPA 25-100 MG 1 EACH TAB PO SCH ×3 (08:49→20:36)
[2017-05-27] MEDS: TAMSULOSIN 0.4 MG CAP.ER.24H PO SCH (08:49)
[2017-05-27] MEDS: PANTOPRAZOLE 40 MG TABLET PO SCH (08:50)
[2017-05-27 08:54] LABS: HCT 35.5 % (39.0-53.0); HGB 11.4 gm/dL (13.0-17.5); MCH 30.9 pg (25.0-35.0); MCHC 32.2 g/dL (31.0-37.0); MCV 96.2 fL (80.0-100.0); Mean Platelet Volume 8.6; Platelet Count 149 k/uL (150-450); RBC 3.69 m/uL (4.30-5.90); RDW 12.8 % (11.5-15.5); WBC 15.3 k/uL (3.8-10.6)
[2017-05-27 09:08] LABS: Anion Gap 10 mmol/L; Blood Urea Nitrogen 36 mg/dL (9-20); Calcium 9.7 mg/dL (8.4-10.2); Carbon Dioxide 29 mmol/L (22-30); Chloride 104 mmol/L (98-107); Glucose 186 mg/dL (74-99); Potassium 3.7 mmol/L (3.5-5.1); Sodium 143 mmol/L (137-145)
--- NOTE | 2017-05-27 09:09 | P.PN ---
Subjective Progress Note Date: 05/27/17 Principal diagnosis: Right hip repair Progress note dated 05/26/2017 This is an 82-year-old male that we saw in consultation yesterday. He sustained a fall at her right femoral neck fracture. He does have a history of chronically elevated right hemidiaphragm a previous history of acute hypoxemic respiratory failure general medical debility gait dysfunction Parkinson's disease hypertension osteoarthritis GERD and BPH and is a long-term resident at [facility]. He had surgery yesterday. Everything apparently went well. Sometimes throughout the night, I was called by the floor nurses. The patient was a rapid response team called. When the my ICU nurses went down to evaluate the patient. Initially, the primary physician wanted the patient transferred up to the ICU. A couple things were going on including a saturation that was a bit low as well as a temperature elevation. The patient was moved to the sixth floor. He received additional high flow oxygen therapy and saturations improved. Today he is doing relatively well. He probably could be transferred back down to the third floor. Feeling much better. Not sure exactly what happened to him. He denies any temperature elevation now. No pain or shortness of breath. No coughing or wheezing. Not producing any phlegm. No nausea vomiting or diarrhea. His only complaint is in the right hip area where he is having pain from the recent surgery. Progress note dated 05/27/2017 82-year-old male that we saw consultation at couple days ago. He sustained a fall and sustained a right femoral neck fracture. He does have a history of acute hypoxemic respiratory failure. Prior admission with pneumonia and he also has a history of right hemidiaphragm elevation. That is chronic. He suffers some general medical debility gait dysfunction Parkinson's disease hypertension osteoarthritis GERD and BPH. He resides in a retirement in [facility]. He had surgery on his right hip on the . Throughout the night 2 nights ago, developed some respiratory issues. We move him up to 6 selective and then yesterday, we moved him back down to the third surgical floor. The patient seemed be doing a lot better. No respiratory issues or difficulty. He does have pain to the right hip area. Denies any coughing or wheezing. No fever or chills. His white count is 15.3 hemoglobin 11.4 hematocrit 35.5 and platelet count 149,000. His urine suggestive possibility of a bladder infection. Leukocyte esterase was large positive. There were 65 WBCs. Chest x -ray which did show some mild heart failure, is improved today. He did receive some diuretics and we cut back on his IV fluids. Objective - Vital Signs Vital signs: Vital Signs Temp 98.5 F 05/26/17 19:00 Pulse 76 05/27/17 08:57 Resp 16 05/27/17 00:00 BP 112/74 05/26/17 19:00 Pulse Ox 95 05/26/17 19:00 Intake & Output 05/26/17 05/27/17 05/27/17 18:59 06:59 18:59 Intake Total 178 1440 Output Total 750 1250 Balance -572 190 Intake: IV 60 Sodium Chloride 0.9% 1, 60 000 ml @ 100 mls/hr IV . Q10H [facility] Rx#:[id number] Intake, IV Titration 400 Amount Piperacillin-Tazobactam 3 200 .375 gm In Dextrose/Water 1 50ml.bag @ 12.5 mls/hr IVPB Q8HR [facility] Rx#: [id number] Sodium Chloride 0.9% 1, 200 000 ml @ 10 mls/hr IV . Q24H [facility] Rx#:[id number] Oral 118 1040 Output: Urine 750 1250 Other: Voiding Method Indwelling Catheter Indwelling Catheter - Exam No acute distress, oriented 3. The patient is on nasal O2. HEENT examination is grossly unremarkable. Mucous membranes are moist. No oral lesions. Neck supple. Full range of motion. No adenopathy thyromegaly or neck vein distention. Cardiovascular examination reveals regular rhythm rate. S1-S2 normal. No S3 or S4. No discernible murmur noted. Lungs a few scattered crackles. Breath sounds are equal. Breath sounds are slightly diminished at the right base. No rhonchi. No wheezes. Abdomen soft bowel sounds are heard. No masses or tenderness. Extremities are intact. No cyanosis clubbing or edema. Skin is without rash or lesion. Neurologic examination reveals a tremor from his Parkinson's disease. - Labs CBC & Chem 7: 05/25/17 23:46 05/24/17 12:24 Labs: Abnormal Lab Results - Last 24 Hours (Table) 05/26/17 Range/Units 15:57 Urine Blood Small H (Negative) Ur Leukocyte Esterase Large H (Negative) Urine RBC 18 H (0-5) /hpf Urine WBC 65 H (0-5) /hpf Hyaline Casts 4 H (0-2) /lpf Urine Mucus Rare H (None) /hpf Microbiology - Last 24 Hours (Table) 05/26/17 15:57 Urine Culture - Preliminary Urine,Catheterized Assessment and Plan Assessment: Assessment Postop day #2 status post repair of a right femoral neck fracture Acute episode of respiratory decline desaturation, likely secondary to mild fluid overload, improved. Possible urinary tract infection, explaining the patient's temperature elevation. Chronic elevated right hemidiaphragm History of acute hypoxemic respiratory failure. General medical debility History of gait dysfunction, secondary to Parkinson's disease History of Parkinson's disease History of hypertension Osteoarthritis GERD BPH Plan: Plan dated 05/26/2017 The patient's chest x-ray from last night shows a bit of heart failure. He does have a chronically elevated right hemidiaphragm. White count is 12.3 hemoglobin 12.9 hematocrit 40.1 and platelet count was 149,000. Arterial blood gases on 50% show a PaO2 of 66 a PaCO2 37 and a pH of 7.44. His lactic acid was 1.8. Currently, the patient looks like he is doing much better. We'll make sure they turned on his IV fluids to KVO. Chest x-ray will be ordered for tomorrow. No additional recommendations are made. The patient could move back down to the third floor surgical area. Additional recommendations and suggestions are forthcoming. His medications are reviewed. Plan dated 05/27/2017. The patient's chest x-ray did show some evidence of heart failure. The IV fluids were turned down. He did receive some diuretic. In addition, he currently is on antibiotic for possible bladder infection. He does look a lot better today. Resting comfortably. No major complaints other than pain in the right hip. No respiratory distress. We'll continue to follow. Time with Patient: Less than 30
--- NOTE | 2017-05-27 14:32 | P.PN ---
Subjective Progress Note Date: 05/27/17 Principal diagnosis: Status post right hip hemiarthroplasty Patient seen today, he is on the [facility] floor, he's been transferred up the selective care unit. His O2 saturation is remaining stable. Internal medicine has provided a few doses of diuretics and IV antibiotics for possible UTI. He is also being followed pulmonology at this time. He is utilizing the abductor pillow. He notes improvement in the pain involving the right hip. Objective - Vital Signs Vital signs: Vital Signs Temp 99.2 F 05/27/17 07:00 Pulse 84 05/27/17 13:26 Resp 18 05/27/17 07:00 BP 112/74 05/26/17 19:00 Pulse Ox 96 05/27/17 07:00 Intake & Output 05/26/17 05/27/17 05/27/17 18:59 06:59 18:59 Intake Total 178 1440 Output Total 750 1250 Balance -572 190 Intake: IV 60 Sodium Chloride 0.9% 1, 60 000 ml @ 100 mls/hr IV . Q10H [facility] Rx#:[id number] Intake, IV Titration 400 Amount Piperacillin-Tazobactam 3 200 .375 gm In Dextrose/Water 1 50ml.bag @ 12.5 mls/hr IVPB Q8HR [facility] Rx#: [id number] Sodium Chloride 0.9% 1, 200 000 ml @ 10 mls/hr IV . Q24H [facility] Rx#:[id number] Oral 118 1040 Output: Urine 750 1250 Other: Voiding Method Indwelling Catheter Indwelling Catheter Indwelling Catheter - Exam Right lower extremity: Incision is clean, dry, and intact. The [place] is in good condition. There is minimal soft tissue swelling and ecchymosis surrounding the medial and lateral aspects of the incision. Calf is soft, no tenderness with palpation. Plantar flexion, dorsiflexion, EHL, FHL are intact. Sensory exam to light touch throughout the extremity is intact, dorsal pedis pulses 2+. - Labs CBC & Chem 7: 05/27/17 08:22 05/27/17 08:22 Labs: Abnormal Lab Results - Last 24 Hours (Table) 05/26/17 05/27/17 05/27/17 Range/Units 15:57 08:22 08:22 WBC 15.3 H (3.8-10.6) k/uL RBC 3.69 L (4.30-5.90) m/uL Hgb 11.4 L (13.0-17.5) gm/dL Hct 35.5 L (39.0-53.0) % Plt Count 149 L (150-450) k/uL BUN 36 H (9-20) mg/dL Glucose 186 H (74-99) mg/dL Urine Blood Small H (Negative) Ur Leukocyte Esterase Large H (Negative) Urine RBC 18 H (0-5) /hpf Urine WBC 65 H (0-5) /hpf Hyaline Casts 4 H (0-2) /lpf Urine Mucus Rare H (None) /hpf Microbiology - Last 24 Hours (Table) 05/26/17 15:57 Urine Culture - Preliminary Urine,Catheterized Assessment and Plan Plan: Assessment: 1. Postop day #2 status post right hip hemiarthroplasty Plan: 1. Pain control, continue use of low-dose oral medication 2. Utilize abductor pillow while lying in bed 3. PT evaluation with walker training 4. GI and DVT prophylaxis, continue Lovenox during inpatient stay 5. Other medical videographer and recommendations 6. Daily dressing changes 7. We'll continue to follow the patient during inpatient stay Time with Patient: Less than 30
[2017-05-27] MEDS: KETOROLAC 30 MG/ML 1 ML VIAL IVP PRN ×2 (14:59→20:38)
--- NOTE | 2017-05-27 15:04 | P.PN ---
Subjective Patient successfully underwent right hip arthroplasty patient is comparing of severe pain in the right hip still short of breath is on high flow oxygen consider secondary to pulmonary edema patient was given a dose of Lasix pulmonology evaluated the patient. 05/27/2017 Patient is still complaining of pain in the right hip area. The still has pulmonary edema patient was started on Lasix IV twice a day patient will be switched to Rocephin patient urine is abnormal may have urinary tract infection which cannot be ruled out Constitutional: Denied any fatigue denied any fever. Cardio vascular: denied any chest pain, palpitations Gastrointestinal denied any nausea vomiting Pulmonary: Denied any shortness of breath cough Neurologic denied any new focal deficits Objective - Vital Signs Vital signs: Vital Signs Temp 99.2 F 05/27/17 07:00 Pulse 84 05/27/17 13:26 Resp 18 05/27/17 07:00 BP 112/74 05/26/17 19:00 Pulse Ox 96 05/27/17 07:00 Intake & Output 05/26/17 05/27/17 05/27/17 18:59 06:59 18:59 Intake Total 178 1440 Output Total 750 1250 Balance -572 190 Intake: IV 60 Sodium Chloride 0.9% 1, 60 000 ml @ 100 mls/hr IV . Q10H [facility] Rx#:[id number] Intake, IV Titration 400 Amount Piperacillin-Tazobactam 3 200 .375 gm In Dextrose/Water 1 50ml.bag @ 12.5 mls/hr IVPB Q8HR [facility] Rx#: [id number] Sodium Chloride 0.9% 1, 200 000 ml @ 10 mls/hr IV . Q24H [facility] Rx#:[id number] Oral 118 1040 Output: Urine 750 1250 Other: Voiding Method Indwelling Catheter Indwelling Catheter Indwelling Catheter - Exam PHYSICAL EXAMINATION: GENERAL: The patient is alert and oriented x2 which is his baseline, not in any acute distress. Well developed, well nourished. Tremors generalized HEENT: Pupils are round and equally reacting to light. EOMI. No scleral icterus. No conjunctival pallor. Normocephalic, atraumatic. No pharyngeal erythema. No thyromegaly. CARDIOVASCULAR: S1 and S2 present. No murmurs, rubs, or gallops. PULMONARY: Chest is clear to auscultation, no wheezing or crackles. ABDOMEN: Soft, nontender, nondistended, normoactive bowel sounds. No palpable organomegaly. MUSCULOSKELETAL: Deferred to orthopedic surgery EXTREMITIES: No cyanosis, clubbing, or pedal edema. NEUROLOGICAL: Gross neurological examination did not reveal any focal deficits. SKIN: No rashes. - Labs CBC & Chem 7: 05/27/17 08:22 05/27/17 08:22 Labs: Abnormal Lab Results - Last 24 Hours (Table) 05/26/17 05/27/17 05/27/17 Range/Units 15:57 08:22 08:22 WBC 15.3 H (3.8-10.6) k/uL RBC 3.69 L (4.30-5.90) m/uL Hgb 11.4 L (13.0-17.5) gm/dL Hct 35.5 L (39.0-53.0) % Plt Count 149 L (150-450) k/uL BUN 36 H (9-20) mg/dL Glucose 186 H (74-99) mg/dL Urine Blood Small H (Negative) Ur Leukocyte Esterase Large H (Negative) Urine RBC 18 H (0-5) /hpf Urine WBC 65 H (0-5) /hpf Hyaline Casts 4 H (0-2) /lpf Urine Mucus Rare H (None) /hpf Microbiology - Last 24 Hours (Table) 05/26/17 15:57 Urine Culture - Preliminary Urine,Catheterized Assessment and Plan Plan: -Right hip arthroplasty postoperative day one: Continue present medication patient is comparing of pain in the right hip area. -Pulmonary edema: Secondary to IV fluids he received, patient will be continued on Lasix there is some improvement in in pulmonary edema, he is still on 5 L of oxygen -Fever possibly of urinary tract infection: Patient is on Rocephin -Parkinson's with baseline tremor: Tramadol was discontinued because of tremor. Other antiparkinsonian medications will be continued. 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 DVT prophylaxis as per primary service
[2017-05-27] MEDS: DICLOFENAC SODIUM GEL 100 GM TUBE TOPICAL SCH ×2 (17:43→20:36)
[2017-05-27] MEDS: SODIUM CHLORIDE 0.9% 1,000 ML IV SCH (17:43)
[2017-05-27 18:06] LABS: Basophils % (A) 0 %; Eosinophils # (A) 0.1 k/uL (0-0.7); Eosinophils % (A) 0 %; HCT 34.2 % (39.0-53.0); HGB 10.8 gm/dL (13.0-17.5); Lymphocytes # (A) 0.9 k/uL (1.0-4.8); Lymphocytes % (A) 6 %; MCH 30.4 pg (25.0-35.0); MCHC 31.7 g/dL (31.0-37.0); MCV 95.8 fL (80.0-100.0); Mean Platelet Volume 8.7; Monocytes # (A) 0.9 k/uL (0-1.0); Monocytes % (A) 6 %; Neutrophils # (A) 12.6 k/uL (1.3-7.7); Neutrophils % (A) 86 %; Platelet Count 155 k/uL (150-450); RBC 3.57 m/uL (4.30-5.90); RDW 12.8 % (11.5-15.5); WBC 14.7 k/uL (3.8-10.6)
[2017-05-27] MEDS: SERTRALINE 50 MG TAB PO SCH (20:36)
[2017-05-27] MEDS: FUROSEMIDE 10 MG/ML 4 ML VIAL IV SCH (20:37)
[2017-05-27] MEDS: MULTIVITAMINS, THERA 1 EACH TAB PO SCH (20:37)
[2017-05-27] MEDS: FOLIC ACID 1 MG TAB PO SCH (20:37)
[2017-05-27] MEDS: SENNOSIDES-DOCUSATE SODIUM 1 EACH TAB PO SCH (20:38)
[2017-05-27] MEDS ORDERED: MAG HYDROX/AL HYDROX/SIMETH 30 ML CUP PO PRN (21:56)
[2017-05-27] MEDS ORDERED: PANTOPRAZOLE 40 MG TABLET PO STA (21:58)
[2017-05-28] MEDS: ARTIFICIAL TEARS-HYPROMELLOSE DROPS 15 ML BTL BOTH EYES SCH ×4 (04:27→17:30)
[2017-05-28] MEDS: DICLOFENAC SODIUM GEL 100 GM TUBE TOPICAL SCH ×2 (07:25→19:37)
[2017-05-28] MEDS: ENOXAPARIN 30 MG/0.3 ML SYRINGE SQ SCH (07:25)
[2017-05-28] MEDS: CARBIDOPA-LEVODOPA 25-100 MG 1 EACH TAB PO SCH ×3 (07:25→19:36)
[2017-05-28] MEDS: TAMSULOSIN 0.4 MG CAP.ER.24H PO SCH (07:27)
[2017-05-28] MEDS: FUROSEMIDE 10 MG/ML 4 ML VIAL IV SCH ×2 (07:27→19:36)
[2017-05-28] MEDS: PANTOPRAZOLE 40 MG TABLET PO SCH (07:32)
[2017-05-28 07:33] LABS: HCT 33.1 % (39.0-53.0); HGB 10.5 gm/dL (13.0-17.5); MCH 30.5 pg (25.0-35.0); MCHC 31.6 g/dL (31.0-37.0); MCV 96.6 fL (80.0-100.0); Mean Platelet Volume 8.3; Platelet Count 175 k/uL (150-450); RBC 3.43 m/uL (4.30-5.90); RDW 12.7 % (11.5-15.5); WBC 16.9 k/uL (3.8-10.6)
[2017-05-28 07:46] LABS: Anion Gap 9 mmol/L; Blood Urea Nitrogen 47 mg/dL (9-20); Calcium 9.9 mg/dL (8.4-10.2); Carbon Dioxide 30 mmol/L (22-30); Chloride 104 mmol/L (98-107); Potassium 3.8 mmol/L (3.5-5.1); Sodium 143 mmol/L (137-145)
[2017-05-28 08:02] LABS: Glucose 158 mg/dL (74-99)
[2017-05-28] MEDS: IPRATROPIUM-ALBUTEROL 3 ML NEB INHALATION SCH ×3 (08:53→19:34)
[2017-05-28] MEDS: cefTRIAXone IN SWFI 1,000 MG/10 ML SYRINGE IVP SCH (09:29)
--- NOTE | 2017-05-28 11:37 | P.PN ---
Subjective Progress Note Date: 05/28/17 Principal diagnosis: Right femoral neck fracture, postop day 3 status post right hip hemiarthroplasty Mr. Ponce is a 82-year-old white male patient who follows with Dr. Hall for his history of pneumonia, sustained a fall while walking and losing his balance at the [facility] on 05/24/2017 while walking. Patient reportedly fell backwards and onto his right hip, and hit his head on the door but did not pass out. He he started complaining of acute right hip pain. He was transported to the hospital per EMS. X-ray of the right hip and pelvis showed right femoral neck fracture, with displacement, but no evident dislocation. CT head showed no acute fracture or dislocation evident in the cervical spine, in no acute intracranial hemorrhage, mass effect or midline shift. Twelve-lead EKG showed sinus rhythm with an incomplete right bundle branch block and occasional PVCs and PACs, but no acute ST abnormality. Chest x-ray showed chronic diaphragmatic hernia, there is a marked elevation of the right hemidiaphragm, which was previously seen on old x-rays. Interstitium was noted to be increased. Patient has been evaluated by the orthopedic surgery, and is scheduled for hemiarthroplasty of the right hip by Dr. Yuen today. Patient is currently on 3 L per nasal cannula with a pulse ox at 90-93%. He is having intermittent low-grade fevers, with a T-max of 100.9F. Denies any acute dyspnea, he is noted to be taking shallow breaths. At the time of my evaluation he seems somewhat sedated, but is able to answer some questions. He denies any difficulty breathing, chest pain, chest congestion. His respirations are even and nonlabored, his lung sounds are diminished, no wheezing or rhonchi or rales noted. Other medical history includes Parkinson's disease, hypertension, osteoarthritis, GERD, BPH, anemia,history of urinary tract infections with bacteremia. Patient has chronic gait dysfunction, falls, has poor functional capability at his baseline, patient is a resident of a group home. Patient is a lifetime nonsmoker. From pulmonary standpoint patient is cleared for the right hip hemiarthroplasty today. Progress note dated 05/26/2017 This is an 82-year-old male that we saw in consultation yesterday. He sustained a fall at her right femoral neck fracture. He does have a history of chronically elevated right hemidiaphragm a previous history of acute hypoxemic respiratory failure general medical debility gait dysfunction Parkinson's disease hypertension osteoarthritis GERD and BPH and is a long-term resident at [facility]. He had surgery yesterday. Everything apparently went well. Sometimes throughout the night, I was called by the floor nurses. The patient was a rapid response team called. When the my ICU nurses went down to evaluate the patient. Initially, the primary physician wanted the patient transferred up to the ICU. A couple things were going on including a saturation that was a bit low as well as a temperature elevation. The patient was moved to the sixth floor. He received additional high flow oxygen therapy and saturations improved. Today he is doing relatively well. He probably could be transferred back down to the third floor. Feeling much better. Not sure exactly what happened to him. He denies any temperature elevation now. No pain or shortness of breath. No coughing or wheezing. Not producing any phlegm. No nausea vomiting or diarrhea. His only complaint is in the right hip area where he is having pain from the recent surgery. Progress note dated 05/27/2017 82-year-old male that we saw consultation at couple days ago. He sustained a fall and sustained a right femoral neck fracture. He does have a history of acute hypoxemic respiratory failure. Prior admission with pneumonia and he also has a history of right hemidiaphragm elevation. That is chronic. He suffers some general medical debility gait dysfunction Parkinson's disease hypertension osteoarthritis GERD and BPH. He resides in a group home in [facility]. He had surgery on his right hip on the . Throughout the night 2 nights ago, developed some respiratory issues. We move him up to 6 selective and then yesterday, we moved him back down to the third surgical floor. The patient seemed be doing a lot better. No respiratory issues or difficulty. He does have pain to the right hip area. Denies any coughing or wheezing. No fever or chills. His white count is 15.3 hemoglobin 11.4 hematocrit 35.5 and platelet count 149,000. His urine suggestive possibility of a bladder infection. Leukocyte esterase was large positive. There were 65 WBCs. Chest x -ray which did show some mild heart failure, is improved today. He did receive some diuretics and we cut back on his IV fluids. On 05/28/2017 patient seen in follow-up. Resting in bed, denies any acute distress. Denies dyspnea, he needs a lot of encouragement with his incentive spirometry, his effort is only around 500 today. His main complaint today is being very tired and weak. His right hip pain is controlled. He states he got up out of bed with assistance today and stood for 3-4 minutes at the bedside and was assisted back to bed. Patient's lung sounds are diminished, with some crackles at the left lower base. He remains afebrile, he is currently on 5 L per nasal cannula with O2 sat 94%. He is currently in sinus rhythm with a controlled rate. He did have an episode of tachycardia with a rate of 138 BPM last night around 9 PM. Patient is receiving IV diuresis in the form of Lasix 40 mg every 12 hours. He is on DuoNeb nebulized treatments, and Rocephin. He is not bringing up any sputum, his cough is very weak. His blood and urine cultures are negative. He is afebrile. He is in -1400 mL fluid balance over the last 24 hours. We will obtain a repeat chest x-ray this morning Objective - Vital Signs Vital signs: Vital Signs Temp 98.8 F 05/28/17 06:56 Pulse 80 05/28/17 09:04 Resp 16 05/28/17 07:41 BP 162/72 05/28/17 06:56 Pulse Ox 92 L 05/28/17 08:53 Intake & Output 05/27/17 05/28/17 05/28/17 18:59 06:59 18:59 Intake Total 1030 970 360 Output Total 1200 2200 Balance -170 -1230 360 Intake: Intake, IV Titration 130 370 Amount Piperacillin-Tazobactam 3 50 50 .375 gm In Dextrose/Water 1 50ml.bag @ 12.5 mls/hr IVPB Q8HR [facility]PH[facility] Rx#: [id number] Sodium Chloride 0.9% 1, 80 320 000 ml @ 10 mls/hr IV . Q24H STEPHEN Rx#:[id number] Oral 900 600 360 Output: Urine 1200 2200 Other: Voiding Method Indwelling Catheter Indwelling Catheter Indwelling Catheter # Voids 1 - Exam GENERAL EXAM: Lethargic, but easily arousable, 82-year-old white male, in no apparent distress. HEAD: Normocephalic/atraumatic. EYES: Normal reaction of pupils, equal size. Conjunctiva pink, sclera white. NOSE: Clear with pink turbinates. THROAT: No erythema or exudates. NECK: No masses, no JVD, no thyroid enlargement, no adenopathy. CHEST: No chest wall deformity. Symmetrical expansion. LUNGS: Diminished air entry with with some crackles at the left lower base, but no wheeze, rhonchi or dullness. CVS: Regular rate and rhythm, normal S1 and S2, no gallops, no murmurs, no rubs ABDOMEN: Soft, nontender. No hepatosplenomegaly, normal bowel sounds, no guarding or rigidity. EXTREMITIES: Right groin pain, right hip surgical incision is clean dry and intact, with minimal swelling and ecchymosis around the incision. There is brownish skin discoloration noted in bilateral lower extremities. Right calf is soft, no tenderness with palpation. Right leg is externally rotated, and shortened. Pedal pulses 2+ bilaterally MUSCULOSKELETAL: Muscle strength and tone normal. SPINE: No scoliosis or deformity SKIN: No rashes CENTRAL NERVOUS SYSTEM: Lethargic, but easily arousable, oriented 2, to person and place. No focal deficits. - Labs CBC & Chem 7: 05/28/17 06:42 05/28/17 06:42 Labs: Abnormal Lab Results - Last 24 Hours (Table) 05/27/17 05/28/17 05/28/17 Range/Units 17:42 06:42 06:42 WBC 14.7 H 16.9 H (3.8-10.6) k/uL RBC 3.57 L 3.43 L (4.30-5.90) m/uL Hgb 10.8 L 10.5 L (13.0-17.5) gm/dL Hct 34.2 L 33.1 L (39.0-53.0) % Neutrophils # 12.6 H (1.3-7.7) k/uL Lymphocytes # 0.9 L (1.0-4.8) k/uL BUN 47 H (9-20) mg/dL Glucose 158 H (74-99) mg/dL Microbiology - Last 24 Hours (Table) 05/26/17 15:57 Urine Culture - Final Urine,Catheterized 05/26/17 14:52 Blood Culture - Preliminary Blood No Growth after 24 hours Assessment and Plan Plan: Assessment: #1. Acute right femoral neck fracture post fall while walking, status post right hemiarthroplasty, postop day 3 #2. Chronically elevated right hemidiaphragm, stable in appearance #3. Acute hypoxic respiratory failure, likely related to pulmonary edema due to fluid overload. Diuresing patient at this time with IV Lasix at 40 mg every 12 hours. #4. General medical debility #5. Gait dysfunction #6. History of Parkinson's disease #7. Hypertension #8. Osteoarthritis #9. GERD #10. BPH, with history of lower urinary tract infections #11. [facility] [place] Plan: Patient continues on 5 L per nasal cannula, we'll try to wean the FiO2. Patient needs aggressive pulmonary toileting, he needs a lot of encouragement to use his incentive spirometry, increase activity. Patient has been get IV diuretics, will obtain the repeat chest x-ray today. Patient continues on his Rocephin for the UTI, although his urine culture and blood culture remained negative to date. Continue GI and DVT prophylaxis, pain control. We'll continue to follow. I performed a history & physical examination of the patient and discussed their management with my nurse practitioner, Prerna Velasco. I reviewed the nurse practitioner's note and agree with the documented findings and plan of care. Lung sounds are diminished, some crackles at the left lower lobe. The findings and the impression was discussed with the patient. I attest to the documentation by the nurse practitioner. Time with Patient: Less than 30
[2017-05-28] MEDS: SODIUM CHLORIDE 0.9% 1,000 ML IV SCH (12:07)
--- NOTE | 2017-05-28 14:00 | P.PN ---
Subjective Patient successfully underwent right hip arthroplasty patient is comparing of severe pain in the right hip still short of breath is on high flow oxygen consider secondary to pulmonary edema patient was given a dose of Lasix pulmonology evaluated the patient. 05/27/2017 Patient is still complaining of pain in the right hip area. The still has pulmonary edema patient was started on Lasix IV twice a day patient will be switched to Rocephin patient urine is abnormal may have urinary tract infection which cannot be ruled out 05/28/2017 Patient is still complaining of pain in the surgical site area, still on palate is apart receiving IV Lasix repeat basic metabolic profile tomorrow, leukocytosis is bit worse patient is on Rocephin for urinary tract infection patient has a Alvarez catheter in place Constitutional: Denied any fatigue denied any fever. Cardio vascular: denied any chest pain, palpitations Gastrointestinal denied any nausea vomiting Pulmonary: Denied any shortness of breath cough Neurologic denied any new focal deficits Objective - Vital Signs Vital signs: Vital Signs Temp 98.8 F 05/28/17 06:56 Pulse 84 05/28/17 13:29 Resp 16 05/28/17 07:41 BP 162/72 05/28/17 06:56 Pulse Ox 92 L 05/28/17 08:53 Intake & Output 05/27/17 05/28/17 05/28/17 18:59 06:59 18:59 Intake Total 1030 970 597 Output Total 1200 2200 Balance -170 -1230 597 Intake: Intake, IV Titration 130 370 Amount Piperacillin-Tazobactam 3 50 50 .375 gm In Dextrose/Water 1 50ml.bag @ 12.5 mls/hr IVPB Q8HR [facility]PH[facility] Rx#: [id number] Sodium Chloride 0.9% 1, 80 320 000 ml @ 10 mls/hr IV . Q24H [facility]PHEN Rx#:[id number] Oral 900 600 597 Output: Urine 1200 2200 Other: Voiding Method Indwelling Catheter Indwelling Catheter Indwelling Catheter # Voids 1 - Exam PHYSICAL EXAMINATION: GENERAL: The patient is alert and oriented x2 which is his baseline, not in any acute distress. Well developed, well nourished. Tremors generalized HEENT: Pupils are round and equally reacting to light. EOMI. No scleral icterus. No conjunctival pallor. Normocephalic, atraumatic. No pharyngeal erythema. No thyromegaly. CARDIOVASCULAR: S1 and S2 present. No murmurs, rubs, or gallops. PULMONARY: Chest is clear to auscultation, no wheezing or crackles. ABDOMEN: Soft, nontender, nondistended, normoactive bowel sounds. No palpable organomegaly. MUSCULOSKELETAL: Deferred to orthopedic surgery EXTREMITIES: No cyanosis, clubbing, or pedal edema. NEUROLOGICAL: Gross neurological examination did not reveal any focal deficits. SKIN: No rashes. - Labs CBC & Chem 7: 05/28/17 06:42 05/28/17 06:42 Labs: Abnormal Lab Results - Last 24 Hours (Table) 05/27/17 05/28/17 05/28/17 Range/Units 17:42 06:42 06:42 WBC 14.7 H 16.9 H (3.8-10.6) k/uL RBC 3.57 L 3.43 L (4.30-5.90) m/uL Hgb 10.8 L 10.5 L (13.0-17.5) gm/dL Hct 34.2 L 33.1 L (39.0-53.0) % Neutrophils # 12.6 H (1.3-7.7) k/uL Lymphocytes # 0.9 L (1.0-4.8) k/uL BUN 47 H (9-20) mg/dL Glucose 158 H (74-99) mg/dL Microbiology - Last 24 Hours (Table) 05/26/17 15:57 Urine Culture - Final Urine,Catheterized 05/26/17 14:52 Blood Culture - Preliminary Blood No Growth after 24 hours Assessment and Plan Plan: -Right hip arthroplasty postoperative day one: Continue present medication patient is comparing of pain in the right hip area. -Pulmonary edema: Secondary to IV fluids he received, patient will be continued on Lasix there is some improvement in in pulmonary edema, he is still on 5 L of oxygen, pulmonary following the patient -Fever possibly of urinary tract infection: Patient is on Rocephin, leukocytosis is bit worse -Parkinson's with baseline tremor: Tramadol was discontinued because of tremor. Other antiparkinsonian medications will be continued. 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 DVT prophylaxis as per primary service
--- NOTE | 2017-05-28 14:14 | XR ---
EXAMINATION TYPE: XR chest 1V portable DATE OF EXAM: 05/28/2017 COMPARISON: Prior chest x-ray 05/27/2017 HISTORY: Follow-up mild congestive heart failure TECHNIQUE: Single frontal view of the chest is obtained. FINDINGS: Patient is rotated. Right hemidiaphragm remains elevated. Heart size thought likely to be stable. No evident pneumothorax. There may be some slight improvement in aeration at the left lung ba se. Interstitium remains increased. Perihilar airspace disease suspected greater on the right. Right shoulder is high riding possibly due to chronic rotator cuff tear. IMPRESSION: Findings could be indicative of congestive heart failure. There may be some slight inter jazmyn improvement in aeration at the left lung base. Additional follow-up recommended. Diaphragmatic he rnia.
--- NOTE | 2017-05-28 15:56 | P.PN ---
Subjective Progress Note Date: 05/28/17 Principal diagnosis: Status post right hip hemiarthroplasty Patient seen today resting in his hospital chair, he appears comfortable. He notes discomfort in the right hip region. Plan for discontinuation urinary catheter today. physical therapy was able to get him up out of the bed and ambulate to the chair, he was able to put weight through the leg. Objective - Vital Signs Vital signs: Vital Signs Temp 98.2 F 05/28/17 14:41 Pulse 71 05/28/17 14:41 Resp 16 05/28/17 14:41 BP 114/61 05/28/17 14:41 Pulse Ox 88 L 05/28/17 14:41 Intake & Output 05/27/17 05/28/17 05/28/17 18:59 06:59 18:59 Intake Total 1030 970 597 Output Total 1200 2200 Balance -170 -1230 597 Intake: Intake, IV Titration 130 370 Amount Piperacillin-Tazobactam 3 50 50 .375 gm In Dextrose/Water 1 50ml.bag @ 12.5 mls/hr IVPB Q8HR STEPH[facility] Rx#: [id number] Sodium Chloride 0.9% 1, 80 320 000 ml @ 10 mls/hr IV . Q24H STEPHEN Rx#:[id number] Oral 900 600 597 Output: Urine 1200 2200 Other: Voiding Method Indwelling Catheter Indwelling Catheter Indwelling Catheter # Voids 1 - Exam Right lower extremity: Incision is clean, dry, and intact. The [place] is in good condition. There is minimal soft tissue swelling and ecchymosis surrounding the medial and lateral aspects of the incision. Calf is soft, no tenderness with palpation. Plantar flexion, dorsiflexion, EHL, FHL are intact. Sensory exam to light touch throughout the extremity is intact, dorsal pedis pulses 2+. - Labs CBC & Chem 7: 05/28/17 06:42 05/28/17 06:42 Labs: Abnormal Lab Results - Last 24 Hours (Table) 05/27/17 05/28/17 05/28/17 Range/Units 17:42 06:42 06:42 WBC 14.7 H 16.9 H (3.8-10.6) k/uL RBC 3.57 L 3.43 L (4.30-5.90) m/uL Hgb 10.8 L 10.5 L (13.0-17.5) gm/dL Hct 34.2 L 33.1 L (39.0-53.0) % Neutrophils # 12.6 H (1.3-7.7) k/uL Lymphocytes # 0.9 L (1.0-4.8) k/uL BUN 47 H (9-20) mg/dL Glucose 158 H (74-99) mg/dL Microbiology - Last 24 Hours (Table) 05/26/17 15:57 Urine Culture - Final Urine,Catheterized 05/26/17 14:52 Blood Culture - Preliminary Blood No Growth after 24 hours Assessment and Plan Plan: Assessment: 1. Postop day #3 status post right hip hemiarthroplasty Plan: 1. Pain control, continue use of low-dose oral medication 2. Utilize abductor pillow while lying in bed 3. PT evaluation with walker training 4. GI and DVT prophylaxis, continue Lovenox during inpatient stay 5. Other medical appointment scheduler and recommendations 6. Daily dressing changes 7. Plan for discontinuation catheter 8. Hopeful discharge to rehab tomorrow Time with Patient: Less than 30
[2017-05-28] MEDS: SERTRALINE 50 MG TAB PO SCH (19:35)
[2017-05-28] MEDS: MULTIVITAMINS, THERA 1 EACH TAB PO SCH (19:36)
[2017-05-28] MEDS: FOLIC ACID 1 MG TAB PO SCH (19:36)
[2017-05-28] MEDS: SENNOSIDES-DOCUSATE SODIUM 1 EACH TAB PO SCH (20:13)
[2017-05-29] MEDS: ARTIFICIAL TEARS-HYPROMELLOSE DROPS 15 ML BTL BOTH EYES SCH ×3 (01:08→16:50)
[2017-05-29] MEDS: IPRATROPIUM-ALBUTEROL 3 ML NEB INHALATION SCH ×2 (07:17→13:04)
[2017-05-29] MEDS: FUROSEMIDE 10 MG/ML 4 ML VIAL IV SCH (08:22)
[2017-05-29] MEDS: ENOXAPARIN 30 MG/0.3 ML SYRINGE SQ SCH (08:23)
[2017-05-29] MEDS: TAMSULOSIN 0.4 MG CAP.ER.24H PO SCH (08:23)
[2017-05-29] MEDS: CARBIDOPA-LEVODOPA 25-100 MG 1 EACH TAB PO SCH ×2 (08:23→16:50)
[2017-05-29] MEDS: DICLOFENAC SODIUM GEL 100 GM TUBE TOPICAL SCH (08:24)
[2017-05-29] MEDS: PANTOPRAZOLE 40 MG TABLET PO SCH (08:24)
[2017-05-29] MEDS: cefTRIAXone IN SWFI 1,000 MG/10 ML SYRINGE IVP SCH (09:12)
--- NOTE | 2017-05-29 10:17 | CDI ---
Last Revision, February 2017 Documentation Clarification Form Date: May 29, 2017 From: Malorie Calix Admit Date: 05/24/2017 3:30:00 PM Patient Name: Harrison Ponce Visit Number: [id number] ATTENTION: The Clinical Documentation Specialists (CDI) and [facility] Coding Staff appreciate your assistance in clarifying documentation. Please respond to the clarification below the line at the bottom and electronically sign. The CDI & [facility] Coding staff will review the response and follow-up if needed. Please note: Queries are made part of the Legal Health Record. If you have any questions, please contact the author of this message via ITS. Dr. Fuentes Farley, History/Risk Factors: gerd, oa, pneumonia, prostate disorder Clinical Indicators: WBC on admission: 13.5, 05/28 16.9 Lactic acid: 1.8 Blood cultures: no growth Vitals signs on admission: T 97.6, P 95, R 16, 151/82, 95% 4L Positive UTI (Was this higginbotham related?) Treatment: Antibiotics: IV Rocphein, IV Piperacillin Monitor labs In your professional opinion, please clarify if these findings signify one of the following conditions, whether the condition is POA, and cause, if known: Sepsis ruled in Sepsis ruled out Other, please specify Present on Admission: Yes No Please continue to document in your progress notes, below the line and/or in the discharge summary in order to capture severity of illness and risk of mortality. Include clinical findings that support your diagnosis. Sepsis ruled in MTDD
--- NOTE | 2017-05-29 10:44 | CDI ---
Last Revision, February 2017 Documentation Clarification Form Date: May 29, 2017 From: Malorie Calix Admit Date: 05/24/2017 3:30:00 PM Patient Name: Harrison Ponce Visit Number: [id number] ATTENTION: The Clinical Documentation Specialists (CDI) and [facility] Coding Staff appreciate your assistance in clarifying documentation. Please respond to the clarification below the line at the bottom and electronically sign. The CDI & [facility] Coding staff will review the response and follow-up if needed. Please note: Queries are made part of the Legal Health Record. If you have any questions, please contact the author of this message via ITS. Dr. Luigi Farley, A diagnosis of UTI has been documented in the PN on 05/27 . History/Risk factors: gerd, oa, pneumonia, prostate disorder Patient had a right hip hemiathroplasy, Alvarez was put in prior to surgery on 05/25 Clinical Indicators: Urinalysis on 05/26: small amount of blood, leukocyte large, hyaline casts 4H , Urine Mucus rare Urine culture: no growth after 18 hours Lab results: on admission WBC 13.5, 05/27 14.7 Treatment: IV Rocephin, Monitor labs In your professional opinion, can you please clarify the etiology of the UTI, if known? Alvarez catheter UTI not related to catheter Other condition, please specify Unable to determine If an infective organism is present, please specify cause and effect relationship if applicable. Please continue to document in your progress notes, under the line below and/or in the discharge summary in order to capture severity of illness and risk of mortality. Include clinical findings that support your diagnosis. Unable to determine MTDD
[2017-05-29] MEDS: ACETAMINOPHEN TAB 325 MG TAB PO PRN (12:34)
--- NOTE | 2017-05-29 13:52 | P.PN ---
Subjective Progress Note Date: 05/29/17 Principal diagnosis: Status post right hip hemiarthroplasty Patient seen today resting in his hospital chair, he appears comfortable. He has no acute complaints at this time. Objective - Vital Signs Vital signs: Vital Signs Temp 98.9 F 05/29/17 07:00 Pulse 80 05/29/17 13:16 Resp 18 05/29/17 07:00 BP 150/75 05/29/17 07:00 Pulse Ox 95 05/29/17 07:17 Intake & Output 05/28/17 05/29/17 05/29/17 18:59 06:59 18:59 Intake Total 917 780 300 Output Total 1700 600 826 Balance -783 180 -526 Intake: Intake, IV Titration 240 Amount Sodium Chloride 0.9% 1, 240 000 ml @ 10 mls/hr IV . Q24H [facility] Rx#:[id number] Oral 917 540 300 Output: Urine 1700 600 826 Uretheral (Alvarez) 200 Other: Voiding Method Indwelling Catheter Urinal Urinal Diaper Diaper # Voids 3 3 # Bowel Movements 1 - Exam Right lower extremity: Incision is clean, dry, and intact. The [place] is in good condition. There is minimal soft tissue swelling and ecchymosis surrounding the medial and lateral aspects of the incision. Calf is soft, no tenderness with palpation. Plantar flexion, dorsiflexion, EHL, FHL are intact. Sensory exam to light touch throughout the extremity is intact, dorsal pedis pulses 2+. - Labs CBC & Chem 7: 05/28/17 06:42 05/28/17 06:42 Labs: Microbiology - Last 24 Hours (Table) 05/26/17 14:52 Blood Culture - Preliminary Blood No Growth after 48 hours Assessment and Plan Plan: Assessment: 1. Postop day #4 status post right hip hemiarthroplasty Plan: 1. Pain control, continue use of low-dose oral medication 2. Utilize abductor pillow while lying in bed 3. PT evaluation with walker training 4. GI and DVT prophylaxis, plan for discharge on Lovenox 30 mg subcu daily 5. Other hospitalist medical director and recommendations 6. Daily dressing changes 7. Patient will be discharged to rehab today Time with Patient: Less than 30
--- NOTE | 2017-05-29 14:20 | P.PN ---
Subjective Patient successfully underwent right hip arthroplasty patient is comparing of severe pain in the right hip still short of breath is on high flow oxygen consider secondary to pulmonary edema patient was given a dose of Lasix pulmonology evaluated the patient. 05/27/2017 Patient is still complaining of pain in the right hip area. The still has pulmonary edema patient was started on Lasix IV twice a day patient will be switched to Rocephin patient urine is abnormal may have urinary tract infection which cannot be ruled out 05/28/2017 Patient is still complaining of pain in the surgical site area, still on palate is apart receiving IV Lasix repeat basic metabolic profile tomorrow, leukocytosis is bit worse patient is on Rocephin for urinary tract infection patient has a Alvarez catheter in place 05/29/2017 Patient is doing well is being discharged back to subacute rehabilitation patient peter on 4 L per neurology disease is recommending 40 mg of oral Lasix will repeat CBC and basic metabolic profile before discharge Constitutional: Denied any fatigue denied any fever. Cardio vascular: denied any chest pain, palpitations Gastrointestinal denied any nausea vomiting Pulmonary: Denied any shortness of breath cough Neurologic denied any new focal deficits Objective - Vital Signs Vital signs: Vital Signs Temp 98.9 F 05/29/17 07:00 Pulse 80 05/29/17 13:16 Resp 18 05/29/17 07:00 BP 150/75 05/29/17 07:00 Pulse Ox 95 05/29/17 07:17 Intake & Output 05/28/17 05/29/17 05/29/17 18:59 06:59 18:59 Intake Total 917 780 750 Output Total 1700 600 826 Balance -783 180 -76 Intake: Intake, IV Titration 240 Amount Sodium Chloride 0.9% 1, 240 000 ml @ 10 mls/hr IV . Q24H [facility] Rx#:[id number] Oral 917 540 750 Output: Urine 1700 600 826 Uretheral (Alvarez) 200 Other: Voiding Method Indwelling Catheter Urinal Urinal Diaper Diaper # Voids 3 3 # Bowel Movements 1 - Exam PHYSICAL EXAMINATION: GENERAL: The patient is alert and oriented x2 which is his baseline, not in any acute distress. Well developed, well nourished. Tremors generalized HEENT: Pupils are round and equally reacting to light. EOMI. No scleral icterus. No conjunctival pallor. Normocephalic, atraumatic. No pharyngeal erythema. No thyromegaly. CARDIOVASCULAR: S1 and S2 present. No murmurs, rubs, or gallops. PULMONARY: Chest is clear to auscultation, no wheezing or crackles. ABDOMEN: Soft, nontender, nondistended, normoactive bowel sounds. No palpable organomegaly. MUSCULOSKELETAL: Deferred to orthopedic surgery EXTREMITIES: No cyanosis, clubbing, or pedal edema. NEUROLOGICAL: Gross neurological examination did not reveal any focal deficits. SKIN: No rashes. - Labs CBC & Chem 7: 05/28/17 06:42 05/28/17 06:42 Labs: Microbiology - Last 24 Hours (Table) 05/26/17 14:52 Blood Culture - Preliminary Blood No Growth after 48 hours Assessment and Plan Plan: -Right hip arthroplasty postoperative day one: Continue present medication patient is comparing of pain in the right hip area. -Pulmonary edema: May have chronic diastolic dysfunction with acute exacerbation patient will be discharged on 40 mg of oral steroids patient is presently on 4 L of oxygen -Fever possibly of urinary tract infection: I'm unsure whether patient's UTI secondary to Alvarez catheter patient does have sepsis from UTI will be discharged on 3 more days of Ceftin -Parkinson's with baseline tremor: Tramadol was discontinued because of tremor. Other antiparkinsonian medications will be continued. 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 DVT prophylaxis as per primary service
[2017-05-29 14:48] VITALS: BP 129/58; PULSE 75; RESP 16; TEMP 97.6
[2017-05-29 14:55] LABS: Basophils % (A) 0 %; Eosinophils # (A) 0.2 k/uL (0-0.7); Eosinophils % (A) 2 %; HCT 33.2 % (39.0-53.0); HGB 11.3 gm/dL (13.0-17.5); Lymphocytes # (A) 1.2 k/uL (1.0-4.8); Lymphocytes % (A) 9 %; MCH 33.1 pg (25.0-35.0); MCHC 34.2 g/dL (31.0-37.0); MCV 96.8 fL (80.0-100.0); Mean Platelet Volume 7.8; Monocytes # (A) 1.1 k/uL (0-1.0); Monocytes % (A) 9 %; Neutrophils # (A) 10.3 k/uL (1.3-7.7); Neutrophils % (A) 78 %; Platelet Count 228 k/uL (150-450); RBC 3.43 m/uL (4.30-5.90); RDW 12.5 % (11.5-15.5); WBC 13.2 k/uL (3.8-10.6)
[2017-05-29 14:58] LABS: Anion Gap 12 mmol/L; Blood Urea Nitrogen 39 mg/dL (9-20); Calcium 9.8 mg/dL (8.4-10.2); Carbon Dioxide 30 mmol/L (22-30); Chloride 102 mmol/L (98-107); Glucose 141 mg/dL (74-99); Potassium 3.6 mmol/L (3.5-5.1); Sodium 144 mmol/L (137-145)
--- NOTE | 2017-05-29 15:02 | P.PN ---
Subjective Progress Note Date: 05/29/17 Principal diagnosis: Right femoral neck fracture, postop day 3 status post right hip hemiarthroplasty Mr. Ponce is a 82-year-old white male patient who follows with Dr. Hall for his history of pneumonia, sustained a fall while walking and losing his balance at the [facility] on 05/24/2017 while walking. Patient reportedly fell backwards and onto his right hip, and hit his head on the door but did not pass out. He he started complaining of acute right hip pain. He was transported to the hospital per EMS. X-ray of the right hip and pelvis showed right femoral neck fracture, with displacement, but no evident dislocation. CT head showed no acute fracture or dislocation evident in the cervical spine, in no acute intracranial hemorrhage, mass effect or midline shift. Twelve-lead EKG showed sinus rhythm with an incomplete right bundle branch block and occasional PVCs and PACs, but no acute ST abnormality. Chest x-ray showed chronic diaphragmatic hernia, there is a marked elevation of the right hemidiaphragm, which was previously seen on old x-rays. Interstitium was noted to be increased. Patient has been evaluated by the orthopedic surgery, and is scheduled for hemiarthroplasty of the right hip by Dr. Yuen today. Patient is currently on 3 L per nasal cannula with a pulse ox at 90-93%. He is having intermittent low-grade fevers, with a T-max of 100.9F. Denies any acute dyspnea, he is noted to be taking shallow breaths. At the time of my evaluation he seems somewhat sedated, but is able to answer some questions. He denies any difficulty breathing, chest pain, chest congestion. His respirations are even and nonlabored, his lung sounds are diminished, no wheezing or rhonchi or rales noted. Other medical history includes Parkinson's disease, hypertension, osteoarthritis, GERD, BPH, anemia,history of urinary tract infections with bacteremia. Patient has chronic gait dysfunction, falls, has poor functional capability at his baseline, patient is a resident of a fdc. Patient is a lifetime nonsmoker. From pulmonary standpoint patient is cleared for the right hip hemiarthroplasty today. Progress note dated 05/26/2017 This is an 82-year-old male that we saw in consultation yesterday. He sustained a fall at her right femoral neck fracture. He does have a history of chronically elevated right hemidiaphragm a previous history of acute hypoxemic respiratory failure general medical debility gait dysfunction Parkinson's disease hypertension osteoarthritis GERD and BPH and is a long-term resident at [facility]. He had surgery yesterday. Everything apparently went well. Sometimes throughout the night, I was called by the floor nurses. The patient was a rapid response team called. When the my ICU nurses went down to evaluate the patient. Initially, the primary physician wanted the patient transferred up to the ICU. A couple things were going on including a saturation that was a bit low as well as a temperature elevation. The patient was moved to the sixth floor. He received additional high flow oxygen therapy and saturations improved. Today he is doing relatively well. He probably could be transferred back down to the third floor. Feeling much better. Not sure exactly what happened to him. He denies any temperature elevation now. No pain or shortness of breath. No coughing or wheezing. Not producing any phlegm. No nausea vomiting or diarrhea. His only complaint is in the right hip area where he is having pain from the recent surgery. Progress note dated 05/27/2017 82-year-old male that we saw consultation at couple days ago. He sustained a fall and sustained a right femoral neck fracture. He does have a history of acute hypoxemic respiratory failure. Prior admission with pneumonia and he also has a history of right hemidiaphragm elevation. That is chronic. He suffers some general medical debility gait dysfunction Parkinson's disease hypertension osteoarthritis GERD and BPH. He resides in a fdc in [facility]. He had surgery on his right hip on the . Throughout the night 2 nights ago, developed some respiratory issues. We move him up to 6 selective and then yesterday, we moved him back down to the third surgical floor. The patient seemed be doing a lot better. No respiratory issues or difficulty. He does have pain to the right hip area. Denies any coughing or wheezing. No fever or chills. His white count is 15.3 hemoglobin 11.4 hematocrit 35.5 and platelet count 149,000. His urine suggestive possibility of a bladder infection. Leukocyte esterase was large positive. There were 65 WBCs. Chest x -ray which did show some mild heart failure, is improved today. He did receive some diuretics and we cut back on his IV fluids. On 05/28/2017 patient seen in follow-up. Resting in bed, denies any acute distress. Denies dyspnea, he needs a lot of encouragement with his incentive spirometry, his effort is only around 500 today. His main complaint today is being very tired and weak. His right hip pain is controlled. He states he got up out of bed with assistance today and stood for 3-4 minutes at the bedside and was assisted back to bed. Patient's lung sounds are diminished, with some crackles at the left lower base. He remains afebrile, he is currently on 5 L per nasal cannula with O2 sat 94%. He is currently in sinus rhythm with a controlled rate. He did have an episode of tachycardia with a rate of 138 BPM last night around 9 PM. Patient is receiving IV diuresis in the form of Lasix 40 mg every 12 hours. He is on DuoNeb nebulized treatments, and Rocephin. He is not bringing up any sputum, his cough is very weak. His blood and urine cultures are negative. He is afebrile. He is in -1400 mL fluid balance over the last 24 hours. We will obtain a repeat chest x-ray this morning On 05/29/2017 patient is seen sitting up in the chair, denies any acute distress. Lung sounds are diminished over right lower lobe, and there is a few scattered rales over left lower lobe. He remains on 4 L per nasal cannula with O2 sat at 95%, his room air oxygen was 83%. He needs encouragement to continue working on his incentive spirometry, he is able to achieve up thousand 9 today. Overall he states his breathing is improving. His pain is controlled. Yesterday's chest x-ray has been reviewed, and shows slight interval improvement in aeration at the left lung base, with persistently increased interstitium. Patient has been afebrile, vital signs have been stable. His urine and blood cultures remain negative. Patient has been on empiric antibiotics in the form of Rocephin, for presumed urinary tract infection, although urine culture was negative. On today's labs, WBC is a 16.9, hemoglobin is 10.5, electrolytes are within normal limits, B1 is 47, and creatinine 0.76. IV Lasix to oral Lasix 40 mg once daily. Continue encouraging incentive spirometry, anticipate discharge to [facility] today. Objective - Vital Signs Vital signs: Vital Signs Temp 97.6 F 05/29/17 14:46 Pulse 75 05/29/17 14:46 Resp 16 05/29/17 14:46 BP 129/58 05/29/17 14:46 Pulse Ox 83 L 05/29/17 14:46 Intake & Output 05/28/17 05/29/17 05/29/17 18:59 06:59 18:59 Intake Total 917 780 750 Output Total 1700 600 826 Balance -783 180 -76 Intake: Intake, IV Titration 240 Amount Sodium Chloride 0.9% 1, 240 000 ml @ 10 mls/hr IV . Q24H [facility] Rx#:[id number] Oral 917 540 750 Output: Urine 1700 600 826 Uretheral (Alvarez) 200 Other: Voiding Method Indwelling Catheter Urinal Urinal Diaper Diaper # Voids 3 3 # Bowel Movements 1 - Exam GENERAL EXAM: Lethargic, but easily arousable, 82-year-old white male, in no apparent distress. HEAD: Normocephalic/atraumatic. EYES: Normal reaction of pupils, equal size. Conjunctiva pink, sclera white. NOSE: Clear with pink turbinates. THROAT: No erythema or exudates. NECK: No masses, no JVD, no thyroid enlargement, no adenopathy. CHEST: No chest wall deformity. Symmetrical expansion. LUNGS: Diminished air entry with with some crackles at the left lower base, but no wheeze, rhonchi or dullness. CVS: Regular rate and rhythm, normal S1 and S2, no gallops, no murmurs, no rubs ABDOMEN: Soft, nontender. No hepatosplenomegaly, normal bowel sounds, no guarding or rigidity. EXTREMITIES: Right groin pain, right hip surgical incision is clean dry and intact, with minimal swelling and ecchymosis around the incision. There is brownish skin discoloration noted in bilateral lower extremities. Right calf is soft, no tenderness with palpation. Right leg is externally rotated, and shortened. Pedal pulses 2+ bilaterally MUSCULOSKELETAL: Muscle strength and tone normal. SPINE: No scoliosis or deformity SKIN: No rashes CENTRAL NERVOUS SYSTEM: Lethargic, but easily arousable, oriented 2, to person and place. No focal deficits. - Labs CBC & Chem 7: 05/28/17 06:42 05/28/17 06:42 Labs: Microbiology - Last 24 Hours (Table) 05/26/17 14:52 Blood Culture - Preliminary Blood No Growth after 48 hours Assessment and Plan Plan: Assessment: #1. Acute right femoral neck fracture post fall while walking, status post right hemiarthroplasty, postop day 4 #2. Chronically elevated right hemidiaphragm, stable in appearance #3. Acute hypoxic respiratory failure, likely related to pulmonary edema due to fluid overload. Patient has been diuresed with IV Lasix, and his chest x- ray shows improvement in aeration of the left base. #4. General medical debility #5. Gait dysfunction #6. History of Parkinson's disease #7. Hypertension #8. Osteoarthritis #9. GERD #10. BPH, with history of lower urinary tract infections #11. Resident of [facility] Plan: Continue encouraging incentive spirometry, patient's Lasix will be switched to oral Lasix today, patient reports improvement in his dyspnea. Yesterday's chest x-ray shows slight improvement in aeration of the left lung base. Patient 's pulse ox was 83% on room air, he will need home oxygen. From pulmonary standpoint patient is stable for discharge to the [facility] today. Follow-up with Dr. Hall in the office in 7 days I performed a history & physical examination of the patient and discussed their management with my nurse practitioner, Prerna Velasco. I reviewed the nurse practitioner's note and agree with the documented findings and plan of care. Lung sounds are diminished, some crackles at the left lower lobe. The findings and the impression was discussed with the patient. I attest to the documentation by the nurse practitioner. Time with Patient: Less than 30
--- NOTE | 2017-05-29 15:57 | P.DS ---
Providers Date of admission: 05/24/17 15:30 Expected date of discharge: 05/29/17 Attending physician: Berhane Yuen Consults: 05/24/17 15:36 Consult Physician Routine Consulting Provider: Carley Pascal Consult Reason/Comments: medical clearance Do you want consulting provider notified?: Yes Primary care physician: [facility] Course: Date of admission: 05/24/2017 Date of discharge: 05/29/2017 Admission diagnosis: Right femoral neck fracture Discharge diagnosis: Status post right hip hemiarthroplasty Attending physician: Dr. 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 Patient had pain involving the right hip and was unable to ambulate. Upon arrival to the hospital, imaging test demonstrated a right femoral neck fracture. I was contacted by the emergency room staff regarding patient, he was admitted under our care with plan for surgery. Internal medicine and pulmonology were both consulted for clearances and medical management. He underwent surgery on 2017. Hospital course: Details of patient's surgery can be found in operative report. Patient tolerated the procedure well and was subsequently transported to orthopedic floor. Patient's orthopeidc and medical care was provided daily. Patient had daily laboratory tests performed for evaluation of overall blood counts. Patient had daily physical therapy to include strengthening range of motion as well as education with walker ambulation. Patient was treated with Lovenox for their postoperative DVT prophylaxis during their inpatient stay. Patient was noted to have a relatively uneventful postoperative course. Patient reported satisfactory pain control with oral pain medications by postoperative day 0. Patient showed satisfactory progress with physical therapy. Patient moved steadily through the program and had no difficulty meeting the goals by postoperative day 4. Given patient's otherwise satisfactory course and having met physical therapy goals, plan is to discharge patient rehab on postoperative day 4. Discharge condition/disposition: Patient will be discharged rehab in stable condition. Discharge medications: Instructions are given on resumption of patient's normal daily medications per primary care recommendation, in addition patient will be prescribed Lovenox 30mg, Lasix 40mg, Potassium Chloride 20 meq, Ceftin 500mg. Discharge instructions: 1. Wound care and infection precautions, keep incision dry and covered while showering, no lotions, creams, moisturizers. No soaking, tubs, pools, hottubs. Do not scrub over the incision. 2. Weight-bear as tolerated with walker / cane until follow-up. Posterior hip precautions, abductor pillow while in bed 3. Ice and elevate when necessary. Do not exceed 20 minutes per hour with ice pack. 4. Utilize compression sleeve until seen at first follow up appointment. 5. Visiting nursing care. 6. Home physical therapy 7. Pain meds and anticoagulants per prescription. 8. Pain medication has potential to cause constipation. Increase oral fluid and fiber intake. Contact primary care provider if you have not had a bowel movement within 48 hours after discharge 9. No anti-inflammatory medication until discussed at first post operative visit, this including Motrin, Aleve, Mobic, Diclofenac 10. Follow up in office at 2 weeks postop with Babak Eisenberg PA-C 11. Follow up with your primary care doctor 7-10 days after discharge. 12. Contact [facility] with any questions, . Procedures: Right hip hemiarthroplasty Patient Condition at Discharge: Stable Plan - Discharge Summary Discharge Rx Participant: No New Discharge Prescriptions: New Cefuroxime Axetil [Ceftin] 500 mg PO BID #6 tab Furosemide [Lasix] 40 mg PO DAILY #0 tab Potassium Chloride ER [K-Dur 20] 20 meq PO DAILY #10 tab Enoxaparin [Lovenox] 30 mg SQ DAILY #25 syringe Continue Acetaminophen Tab [Tylenol] 650 mg PO TID@0500,1300,2100 Sertraline HCl [Zoloft] 75 mg PO HS@2000 Sennosides [Senna] 8.6 mg PO HS PRN PRN Reason: Constipation Artificial Tears-Hypromellose [Artificial Tear Drops] 2 drops BOTH EYES Q6H Carbidopa-Levodopa 25-100 mg [Sinemet 25-100 mg] 1 tab PO TID@0700,1300,1900 Diclofenac Sodium [Voltaren Gel] 2 gram TOPICAL BID Tamsulosin HCl [Flomax] 0.4 mg PO DAILY Omeprazole [PriLOSEC] 20 mg PO DAILY Acetaminophen Tab [Tylenol] 650 mg PO Q4H PRN PRN Reason: Fever amLODIPine [Norvasc] 5 mg PO DAILY Folic Acid 1 mg PO HS Multivitamins, Thera [Multivitamin (formulary)] 1 tab PO HS Discontinued traMADol HCL [Ultram] 50 mg PO HS@1999 Discharge Medication List Acetaminophen Tab [Tylenol] 650 mg PO TID@0500,1300,2100 04/07/16 [History] Sertraline HCl [Zoloft] 75 mg PO HS@199904/07/16 [History] Sennosides [Senna] 8.6 mg PO HS PRN 04/20/16 [History] Artificial Tears-Hypromellose [Artificial Tear Drops] 2 drops BOTH EYES Q6H 05/19 [History] Carbidopa-Levodopa 25-100 mg [Sinemet 25-100 mg] 1 tab PO TID@0700,1300,1900 05/19 [History] Diclofenac Sodium [Voltaren Gel] 2 gram TOPICAL BID 08/05/16 [History] Omeprazole [PriLOSEC] 20 mg PO DAILY 08/05/16 [History] Tamsulosin HCl [Flomax] 0.4 mg PO DAILY 08/05/16 [History] Acetaminophen Tab [Tylenol] 650 mg PO Q4H PRN 04/10/17 [History] Folic Acid 1 mg PO HS 04/10/17 [History] Multivitamins, Thera [Multivitamin (formulary)] 1 tab PO HS 04/10/17 [History] amLODIPine [Norvasc] 5 mg PO DAILY 04/10/17 [History] Cefuroxime Axetil [Ceftin] 500 mg PO BID #6 tab 05/29/17 [Rx] Enoxaparin [Lovenox] 30 mg SQ DAILY #25 syringe 05/29/17 [Rx] Furosemide [Lasix] 40 mg PO DAILY #0 tab 05/29/17 [Rx] Potassium Chloride ER [K-Dur 20] 20 meq PO DAILY #10 tab 05/29/17 [Rx] Follow up Appointment(s)/Referral(s): Curt Hall DO [Primary Care Provider] - 1-2 days Ted Eisenberg PAC [PHYSICIAN PLANER OPERATOR / GRADER] - 2 Weeks Activity/Diet/Wound Care/Special Instructions: Orthopedic Discharge Instructions: 1. Wound care and infection precautions, keep incision dry and covered while showering, no lotions, creams, moisturizers. No soaking, pools, hot tubs. Do not scrub over incision. 2. Weight-bear as tolerated with walker / cane until follow-up. Utilize abductor pillow and posterior hip precautions 3. Ice and elevate when necessary. Do not exceed 20 minutes per hour with ice pack. 4. Utilize compression sleeve until seen at first follow up appointment. 5. Visiting nursing care. 6. Home physical therapy. 7. Pain meds and anticoagulants per prescription. 8. Pain medication has potential to cause constipation. Increase oral fluid and fiber intake. Contact primary care provider if you have not had a bowel movement within 48 hours after discharge. 9. No anti-inflammatory medication until discussed at first post operative visit, this including Motrin, Aleve, Mobic, Diclofenac. 10. Follow up in office at 2 weeks postop with Babak Eisenberg PA-C 11. Follow up with your primary care doctor 7-10 days after discharge. 12. Contact [facility] with any questions, . Discharge Disposition: TRANSFER TO SNF/ECF
[2017-05-30] MEDS ORDERED: FUROSEMIDE 40 MG TAB PO SCH (09:00)
== END 2017-05-29 18:45 | DRG 469 ==
LOC: EC 11:55 → EEVIPCON 11:55 → 3SUR 15:30 → 6SEL 05-26 01:16 → 3SUR 05-26 16:10
PROVIDERS: ADMIT Orthopaedic Surgery; ATTEND Orthopaedic Surgery
PROC: 0SRR01A Replacement of Right Hip Joint, Femoral Surface with Metal Synthetic Substitute, Uncemented, Open Approach (ICD-10-PCS; principal; 2017-05-25 15:15)
DX: S72.001A Fracture of unspecified part of neck of right femur, initial encounter for closed fracture (principal); J96.01 Acute respiratory failure with hypoxia; I50.33 Acute on chronic diastolic (congestive) heart failure; A41.9 Sepsis, unspecified organism; N39.0 Urinary tract infection, site not specified; I11.0 Hypertensive heart disease with heart failure; Z99.81 Dependence on supplemental oxygen; J98.6 Disorders of diaphragm; D64.9 Anemia, unspecified; G20 Parkinson's disease; I45.10 Unspecified right bundle-branch block; K44.9 Diaphragmatic hernia without obstruction or gangrene; N40.1 Benign prostatic hyperplasia with lower urinary tract symptoms; G89.29 Other chronic pain; M54.9 Dorsalgia, unspecified; R26.9 Unspecified abnormalities of gait and mobility; K21.9 Gastro-esophageal reflux disease without esophagitis; Z79.891 Long term (current) use of opiate analgesic; Z79.899 Other long term (current) drug therapy; N39.498 Other specified urinary incontinence; M19.011 Primary osteoarthritis, right shoulder; M19.012 Primary osteoarthritis, left shoulder; Z91.81 History of falling; Z87.01 Personal history of pneumonia (recurrent); Z87.440 Personal history of urinary (tract) infections; Z99.3 Dependence on wheelchair; Z86.19 Personal history of other infectious and parasitic diseases; W01.0XXA Fall on same level from slipping, tripping and stumbling without subsequent striking against object, initial encounter; Y92.129 Unspecified place in nursing home as the place of occurrence of the external cause; Y93.01 Activity, walking, marching and hiking
CPT/HCPCS: 36415; 36600; 70450; 71045; 72125; 73501; 73502; 80048; 80053; 81001; 82805; 83605; 85025; 85027; 85610; 85730; 86850; 86900; 86901; 87040; 87086; 88305; 88311; 93005; 94640; 94760; 96374; 96376; 99285

== ENCOUNTER 2018-01-02 16:32 | Inpatient (IN) | payer MEDICARE, OTHER ==
[2018-01-02] MEDS ORDERED: SODIUM CHLORIDE 0.9% 1,000 ML IV STA (17:04)
[2018-01-02 17:35] LABS: Basophils % (A) 0 %; Eosinophils # (A) 0.2 k/uL (0-0.7); Eosinophils % (A) 2 %; HCT 36.5 % (39.0-53.0); HGB 11.8 gm/dL (13.0-17.5); Lymphocytes # (A) 1.6 k/uL (1.0-4.8); Lymphocytes % (A) 17 %; MCH 32.6 pg (25.0-35.0); MCHC 32.3 g/dL (31.0-37.0); MCV 100.8 fL (80.0-100.0); Monocytes # (A) 0.6 k/uL (0-1.0); Monocytes % (A) 7 %; Neutrophils # (A) 6.9 k/uL (1.3-7.7); Neutrophils % (A) 73 %; Platelet Count 187 k/uL (150-450); RBC 3.62 m/uL (4.30-5.90); RDW 13.1 % (11.5-15.5); WBC 9.4 k/uL (3.8-10.6)
[2018-01-02 17:41] LABS: Appearance,Urine Clear (Clear); Bacteria,Urine Moderate /hpf; Bilirubin,Urine Negative (Negative); Blood,Urine Negative (Negative); Color,Urine Light Yellow; Glucose,Urine (UA) Negative (Negative); Hyaline Casts,Urine 5 /lpf (0-2); Ketones,Urine Negative (Negative); Leukocyte Esterase,Urine Large (Negative); Mucus,Urine Rare /hpf; Nitrite,Urine Positive (Negative); Protein,Urine Negative (Negative); RBC,Urine 1 /hpf (0-5); Specific Gravity,Urine 1.009 (1.001-1.035); Squamous Epithelial Cell,Urine <1 /hpf (0-4); Urobilinogen,Urine <2.0 mg/dL (<2.0)
[2018-01-02 17:44] LABS: ALT 9 U/L (21-72); AST 23 U/L (17-59); Albumin 3.5 g/dL (3.5-5.0); Alkaline Phosphatase 78 U/L (38-126); Anion Gap 8 mmol/L; Blood Urea Nitrogen 27 mg/dL (9-20); Calcium 9.8 mg/dL (8.4-10.2); Carbon Dioxide 26 mmol/L (22-30); Chloride 108 mmol/L (98-107); Glucose 119 mg/dL (74-99); Sodium 142 mmol/L (137-145); Total Bilirubin 0.4 mg/dL (0.2-1.3); Total Protein 6.7 g/dL (6.3-8.2)
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
[2018-01-02 17:52] LABS: Potassium 4.7 mmol/L (3.5-5.1)
--- NOTE | 2018-01-02 18:35 | XR ---
EXAMINATION TYPE: XR Hip RT and AP Pelvis DATE OF EXAM: 01/02/2018 COMPARISON: 05/24/2017 HISTORY: Pain TECHNIQUE: A single AP view of the pelvis is obtained. Two views of the right hip are obtained. FINDINGS: There is a right hip prosthesis. Components are in anatomic position. I see no fracture. Th e pelvic ring is intact. Sacroiliac joints are intact. IMPRESSION: Right hip prosthesis. No complicating process seen. Minimal osteoarthritis noted in the left hip join harshal
--- NOTE | 2018-01-02 18:42 | CT ---
EXAMINATION TYPE: CT brain adalgisa ramirez DATE OF EXAM: 01/02/2018 COMPARISON: 05/24/2017 HISTORY: Pain headache. Neck pain CT DLP: 942.6 mGycm Automated exposure control for dose reduction was used. TECHNIQUE: CT scan of the head and cervical spine are performed without contrast. FINDINGS: There is diffuse cerebral cortical atrophy. There is no mass effect nor midline shift. Th ere is no sign of intracranial hemorrhage. There is hypodensity in the periventricular white matter. The cervical vertebra have normal alignment. There is degenerative disc space narrowing throughout th e cervical spine. There is multilevel hypertrophic facet arthropathy. There is disc space narrowing a nd extensive anterior spur formation. The skull base is intact. There is moderate spinal stenosis at C5-6 C6-7 due to endplate spur formation. IMPRESSION: Cerebral atrophy and chronic small vessel ischemia. No acute intracranial abnormality. No change. Multilevel spondylosis. Moderately severe spinal stenosis in the lower cervical spine. No fracture. N o change.
--- NOTE | 2018-01-02 19:45 | XR ---
EXAMINATION TYPE: XR femur RT DATE OF EXAM: 01/02/2018 COMPARISON: Today HISTORY: Pain TECHNIQUE: 4 views FINDINGS: There is a nondisplaced transverse subtrochanteric fracture of the right femur. There is ri ght hip prosthesis. The knee joint appears intact. IMPRESSION: Acute nondisplaced subtrochanteric fracture right femur.
[2018-01-02] MEDS ORDERED: NALOXONE 0.4 MG/ML 1 ML VIAL IV PRN (20:00)
[2018-01-02] MEDS ORDERED: ONDANSETRON 4 MG/2 ML VIAL IVP PRN (20:00)
[2018-01-02] MEDS: MORPHINE SULFATE 4 MG/ML SYRINGE IV PRN ×2 (20:22→23:34)
[2018-01-02 21:23] VITALS: BMI 21.4
[2018-01-03] MEDS ORDERED: CARBIDOPA-LEVODOPA 25-100 MG 1 EACH TAB PO STA (01:17)
[2018-01-03 07:24] LABS: Basophils % (A) 0 %; Eosinophils % (A) 0 %; HCT 31.6 % (39.0-53.0); HGB 10.3 gm/dL (13.0-17.5); Lymphocytes # (A) 0.5 k/uL (1.0-4.8); Lymphocytes % (A) 2 %; MCH 32.7 pg (25.0-35.0); MCHC 32.5 g/dL (31.0-37.0); MCV 100.6 fL (80.0-100.0); Mean Platelet Volume 7.2; Monocytes % (A) 5 %; Neutrophils # (A) 19.1 k/uL (1.3-7.7); Neutrophils % (A) 92 %; Platelet Count 154 k/uL (150-450); RBC 3.14 m/uL (4.30-5.90); RDW 13.3 % (11.5-15.5); WBC 20.6 k/uL (3.8-10.6)
[2018-01-03 07:46] LABS: Albumin 2.9 g/dL (3.5-5.0); Calcium 9.5 mg/dL (8.4-10.2); Potassium 4.6 mmol/L (3.5-5.1); Total Bilirubin 0.5 mg/dL (0.2-1.3); Total Protein 5.8 g/dL (6.3-8.2)
[2018-01-03] MEDS ORDERED: SENNOSIDES 8.6 MG TAB PO PRN (07:51)
[2018-01-03] MEDS ORDERED: traMADol 50 MG TAB PO PRN (07:51)
[2018-01-03] MEDS ORDERED: FUROSEMIDE 40 MG TAB PO SCH (09:00)
[2018-01-03] MEDS: POTASSIUM CHLORIDE ER 20 MEQ TAB.ER PO SCH (09:39)
[2018-01-03] MEDS: PANTOPRAZOLE 40 MG TABLET PO SCH (09:50)
[2018-01-03] MEDS: TAMSULOSIN 0.4 MG CAP.ER.24H PO SCH (09:50)
[2018-01-03] MEDS: cycloSPORINE 0.05% OPHTH 0.4 ML DROPERETTE BOTH EYES SCH ×4 (09:50→21:56)
[2018-01-03] MEDS: DICLOFENAC SODIUM GEL 100 GM TUBE TOPICAL SCH ×2 (09:50→21:54)
[2018-01-03] MEDS: CARBIDOPA-LEVODOPA 25-100 MG 1 EACH TAB PO SCH ×2 (09:50→21:51)
[2018-01-03] MEDS ORDERED: SODIUM CHLORIDE 0.9% 500 ML 500 ML IV ONE (10:55)
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
[2018-01-03] MEDS ORDERED: IV FLUID CONTINUATION 1,000 ML IV ONE (15:54)
[2018-01-03] MEDS ORDERED: MIDAZOLAM 2 MG/2 ML VIAL ONE (16:31)
[2018-01-03] MEDS ORDERED: NEOSTIGMINE 1 MG/ML 10 ML VIAL ONE (16:31)
[2018-01-03] MEDS ORDERED: KETAMINE 10 MG/ML 20 ML VIAL ONE (16:31)
[2018-01-03] MEDS ORDERED: SUCCINYLCHOLINE CHLORIDE 100 MG/5 ML SYR IV ONE (16:31)
[2018-01-03] MEDS ORDERED: GLYCOPYRROLATE 0.2 MG/ML 2 ML VIAL ONE (16:31)
[2018-01-03] MEDS ORDERED: PROPOFOL 10 MG/ML 20 ML VIAL IV ONE (16:31)
[2018-01-03] MEDS ORDERED: ROCURONIUM BROMIDE 10 MG/ML 10 ML VIAL IV ONE (16:31)
[2018-01-03] MEDS ORDERED: fentaNYL (PF) 50 MCG/ML 2 ML AMP ONE (16:31)
[2018-01-03] MEDS ORDERED: ePHEDrine SULFATE/0.9% NACL/PF 50 MG/5 ML SYRINGE IV ONE (16:31)
[2018-01-03] MEDS ORDERED: PHENYLEPHRINE-0.9% NACL SYG 1 MG/10 ML SYRINGE ONE (16:31)
[2018-01-03] MEDS ORDERED: ceFAZolin 1,000 MG VIAL IVPB ONE ×2 (17:00→17:06)
[2018-01-03] MEDS ORDERED: LACTATED RINGERS 1,000 ML IV ONE ×2 (17:35→18:25)
[2018-01-03] MEDS ORDERED: ceFAZolin 1,000 MG in SODIUM CHLORIDE 0.9% 1,000 ML IRRIGATION ONE (18:10)
[2018-01-03] MEDS ORDERED: NALOXONE 0.4 MG/ML 1 ML VIAL IV PRN (18:31)
[2018-01-03] MEDS ORDERED: ONDANSETRON 4 MG/2 ML VIAL IVP PRN (18:31)
[2018-01-03] MEDS ORDERED: HYDROmorphone 1 MG/ML 1 ML SYRINGE IVP PRN ×3 (18:31)
--- NOTE | 2018-01-03 18:31 | P.OP ---
Date of Procedure: 01/03/18 Preoperative Diagnosis: Right subtrochanteric periprosthetic femur fracture Postoperative Diagnosis: Right subtrochanteric periprosthetic femur fracture Procedure(s) Performed: Open reduction and internal fixation right subtrochanteric periprosthetic femur fracture Implants: Synthes 12 hole 4.5 LCP broad plate with 3-4.5 mm cortical screws and 4-1.7 mm cables with crimp Anesthesia: CHEN Surgeon: Berhane Yuen Route Returner #1: Ted Eisenberg Estimated Blood Loss (ml): 500 Pathology: none sent Condition: stable Disposition: PACU Indications for Procedure: 82-year-old patient seen with a right subtrochanteric periprosthetic femur fracture. I recommended open reduction and internal fixation. The procedure, risks, complications and recovery were discussed. Patient was agreeable and consent was obtained. Operative Findings: See description of procedure Description of Procedure: The patient was taken to the operative suite. The patient underwent a general anesthetic by the department of anesthesia. The patient was transferred to the fracture table. The right lower extremity is placed in longitudinal traction and left lower extremity placed in a well-leg denis. We brought the C-arm into the operative field confirming adequate alignment of the fracture. The right lateral proximal femur was prepped and draped in the normal sterile orthopedic fashion. An incision was made beginning at the level of the greater trochanter and extended distally approximately 12 inches sharply through skin. Dissection was taken down to the iliotibial band. I incised the iliotibial band longitudinally. I now incised the fascia Kaur. We then carefully dissected down to the lateral femur. We did encounter some bleeding for which we used aqua mantis and electrocautery. We noted a displaced fracture subtrochanteric area. At this point Babak CHURCH assisted with holding retractors while I used a Ramon bone reduction clamp to reduce the fracture. C- arm was brought into the operative field confirming reduction. I now chose a Synthes 12 hole LCP broad plate and secured along the lateral axilla the proximal femur. The C-arm was brought in confirming adequate positioning of this. We now placed 2 preliminary cables proximally again this held the fracture essentially anatomically aligned. We now introduced 3 cortical screws distally while again Babak CHURCH assisted by holding appropriate retraction. All 3 distal cortical screws had good bite and purchase. We now turned our attention to the more proximal aspect of the plate. I secured those cables with the assistance of Babak CHURCH and noted they were nice and tight they were crimped. The C-arm was brought back into the operative field noting good alignment of the fracture and good positioning of our plate. I now passed 2 additional cables proximally and they were tightened down and crimped into position. There appeared be good gross stable fixation of the fracture. The C- arm was brought back into the operative field confirming good position of the hardware and good alignment of the fracture. The wound was irrigated with pulse lavage mechanical irrigation. The fascia was repaired with 0 Vicryl. The IT band was repaired with multiple interrupted #1 Vicryl sutures. The subcu soft tissues were repaired with 2-0 Vicryl. The skin is proximal skin india. Sterile dressings were applied. The patient was awakened, transferred to a bed and recovery stable condition. Babak CHURCH assisted with this procedure. Prognosis remains guarded.
[2018-01-03 19:03] LABS: Basophils % (A) 0 %; Eosinophils # (A) 0.3 k/uL (0-0.7); Eosinophils % (A) 2 %; HCT 30.3 % (39.0-53.0); HGB 9.7 gm/dL (13.0-17.5); Lymphocytes # (A) 1.9 k/uL (1.0-4.8); Lymphocytes % (A) 11 %; MCH 32.6 pg (25.0-35.0); MCHC 32.1 g/dL (31.0-37.0); MCV 101.6 fL (80.0-100.0); Macrocytosis Slight; Mean Platelet Volume 7.1; Monocytes # (A) 0.8 k/uL (0-1.0); Monocytes % (A) 5 %; Neutrophils # (A) 13.9 k/uL (1.3-7.7); Neutrophils % (A) 82 %; Platelet Count 136 k/uL (150-450); RBC 2.98 m/uL (4.30-5.90); RDW 13.2 % (11.5-15.5); WBC 16.9 k/uL (3.8-10.6)
--- NOTE | 2018-01-03 19:33 | XR ---
EXAMINATION TYPE: XR Hip Complete RT DATE OF EXAM: 01/03/2018 COMPARISON: 01/02/2018 HISTORY: Postop TECHNIQUE: Single view FINDINGS: There is a lateral plate with screws and wires fixating the subtrochanteric fracture of the right femur. Components are in anatomic position. IMPRESSION: Satisfactory fixation. No complicating process seen.
[2018-01-03] MEDS ORDERED: HYDROmorphone 1 MG/ML 1 ML SYRINGE IVP ONE (19:37)
[2018-01-03] MEDS: SODIUM CHLORIDE 0.9% 1,000 ML IV SCH (21:50)
[2018-01-03] MEDS: SENNOSIDES-DOCUSATE SODIUM 1 EACH TAB PO SCH (21:51)
[2018-01-03] MEDS: MULTIVITAMINS, THERA 1 EACH TAB PO SCH (21:51)
[2018-01-03] MEDS: SERTRALINE 50 MG TAB PO SCH (21:51)
[2018-01-03] MEDS: FOLIC ACID 1 MG TAB PO SCH (21:52)
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
[2018-01-03] MEDS: ACETAMINOPHEN TAB 325 MG TAB PO PRN (22:22)
[2018-01-04] MEDS: ceFAZolin IN SWFI 2 GM/20 ML SYRINGE IVP SCH ×2 (01:41→09:15)
[2018-01-04] MEDS: ACETAMINOPHEN TAB 325 MG TAB PO PRN ×2 (06:12→15:07)
[2018-01-04 07:18] LABS: Anion Gap 7 mmol/L; Blood Urea Nitrogen 25 mg/dL (9-20); Calcium 9.5 mg/dL (8.4-10.2); Carbon Dioxide 22 mmol/L (22-30); Chloride 110 mmol/L (98-107); Glucose 141 mg/dL (74-99); Potassium 4.4 mmol/L (3.5-5.1); Sodium 139 mmol/L (137-145)
[2018-01-04] MEDS: cycloSPORINE 0.05% OPHTH 0.4 ML DROPERETTE BOTH EYES SCH ×2 (08:56→21:01)
[2018-01-04] MEDS: TAMSULOSIN 0.4 MG CAP.ER.24H PO SCH (09:15)
[2018-01-04] MEDS: ENOXAPARIN 40 MG/0.4 ML SYRINGE SQ SCH (09:15)
[2018-01-04] MEDS: PANTOPRAZOLE 40 MG TABLET PO SCH (09:15)
[2018-01-04] MEDS: CARBIDOPA-LEVODOPA 25-100 MG 1 EACH TAB PO SCH ×2 (09:15→21:00)
[2018-01-04] MEDS: POTASSIUM CHLORIDE ER 20 MEQ TAB.ER PO SCH (09:15)
--- NOTE | 2018-01-04 09:15 | FL ---
Fluoroscopy INDICATION: Pain FINDINGS: Fluoroscopy time: 7 seconds. Images obtained: 2. IMPRESSIONS: 1. Documentation of fluoroscopy.
[2018-01-04] MEDS: DICLOFENAC SODIUM GEL 100 GM TUBE TOPICAL SCH ×2 (09:16→21:02)
[2018-01-04] MEDS: SODIUM CHLORIDE 0.9% 1,000 ML IV SCH ×2 (09:17→22:48)
[2018-01-04] MEDS: traMADol 50 MG TAB PO PRN ×3 (09:39→21:00)
--- NOTE | 2018-01-04 11:18 | P.PN ---
Progress Note - Text Progress Note Date: 01/04/18 Patient seen laying in bed. Patient appears comfortable. Patient does complain of right elbow pain. Right elbowmild limited range of motion with no significant pain. Tenderness along the olecranon tip. Some limited rotation with mild discomfort. Distal neurovascular exam intact Right hipincision stable with mild serous drainage. Gentle log rolling hip with mild discomfort only. Distal neurovascular exam intact. Negative Aleksander Amos. Impression: Status post open reduction and internal fixation right periprosthetic subtrochanteric femur fracture Right elbow pain Plan: Will obtain x-ray elbow Medical management DVT prophylaxis Continue nonweightbearing right lower extremity
[2018-01-04] MEDS ORDERED: HYDROmorphone 2 MG TAB PO PRN ×3 (12:00→12:01)
--- NOTE | 2018-01-04 13:13 | XR ---
EXAMINATION TYPE: XR elbow complete RT DATE OF EXAM: 01/04/2018 COMPARISON: NONE HISTORY: Pain FINDINGS: Three views of the elbow demonstrate no pathologic joint effusion. No pathologic joint effusion. Ther e is soft tissue edema overlying the olecranon with evidence of an olecranon spur. Exostosis arising from the proximal radius seen. IMPRESSION: 1. No acute fracture or dislocation. If symptoms persist follow-up study in 7 to 10 days could be ob tained. 2. Olecranon spur with soft tissue edema. 3. Exostosis proximal radius.
--- NOTE | 2018-01-04 16:09 | P.PN ---
Subjective Progress Note Date: 01/04/18 Principal diagnosis: Fall and right hip fracture - status post open reduction and internal fixation Patient is a 82-year-old male with a known history of hypertension, GERD, Parkinson's disease and history of falls, osteoarthritis and multiple other medical problems was brought to the ER status post fall and right hip pain. Patient does admit that he was trying to transfer from a wheelchair to his bed. He states that he did slip and he went down hit his head. States was no loss of consciousness. He does admit to pain to the right hip area. Right hip and pelvis x-ray showed Right periprosthetic femur fracture. No complicated process seen. Minimal osteoarthritis seen in the left hip CT head and cervical spine showed cerebral atrophy and chronic small vessel ischemic disease. No acute intracranial process. Multilevel spondylolysis and moderate spinal stenosis. Patient had a right hip open reduction and internal fixation of the Septra can' t take periprosthetic femur fracture done yesterday. He is postop day 1 . Patient does lying in bed appears to be no acute distress. Overnight no active issues reported by nursing staff. Review of systems - patient mentions about soreness in the right hip region. Constitutional denies having any fevers chills or rigors. Cardiovascular no chest pain or palpitations Respiratory-no cough or difficulty in breathing patient has incentive spirometry at the bedside GI-no abdominal pain nausea vomiting or diarrhea. Objective - Vital Signs Vital signs: Vital Signs Temp 98.6 F 01/04/18 15:18 Pulse 80 01/04/18 15:18 Resp 16 01/04/18 15:18 BP 127/66 01/04/18 15:18 Pulse Ox 95 01/04/18 15:18 Intake & Output 01/03/18 01/04/18 01/04/18 18:59 06:59 18:59 Intake Total 2601 200 450 Output Total 1000 800 500 Balance 1601 -600 -50 Intake: IV 2601 200 Sodium Chloride 0.9% 1, 600 000 ml @ 75 mls/hr IV . [id number] STA Rx#:[id number] Oral 450 Output: Urine 500 800 500 Uretheral (Alvarez) 200 500 Estimated Blood Loss 500 Other: Voiding Method Urinal Indwelling Catheter Indwelling Catheter - Exam Patient is lying in the bed comfortably, no acute distress, awake alert and oriented.. HEENT: Normocephalic. Neck is supple. Pupils reactive. No pallor or icterus Neck reveals no JVD, carotid bruits, or thyromegaly. CHEST EXAMINATION: Lung thorpe clear to auscultation and percussion. CARDIAC: Normal S1, S2 with no gallops. No murmurs ABDOMEN: Soft. Bowel sounds normal. No organomegaly. No abdominal bruits. Extremities: reveal no edema. No clubbing or cyanosis Neurologically awake, alert, oriented x1-2 with well-coordinated movements. No focal deficits noted Skin: No rash or skin lesions. Musculoskeletal: Right hip tenderness - Labs CBC & Chem 7: 01/03/18 18:50 01/04/18 06:40 Labs: Abnormal Lab Results - Last 24 Hours (Table) 01/03/18 01/04/18 Range/Units 18:50 06:40 WBC 16.9 H (3.8-10.6) k/uL RBC 2.98 L (4.30-5.90) m/uL Hgb 9.7 L (13.0-17.5) gm/dL Hct 30.3 L (39.0-53.0) % MCV 101.6 H (80.0-100.0) fL Plt Count 136 L (150-450) k/uL Neutrophils # 13.9 H (1.3-7.7) k/uL Chloride 110 H (98-107) mmol/L BUN 25 H (9-20) mg/dL Glucose 141 H (74-99) mg/dL Microbiology - Last 24 Hours (Table) 01/02/18 17:19 Urine Culture - Preliminary Urine,Voided Gram Neg Bacilli Assessment and Plan Assessment: Mechanical fall and and right subtrochanteric periprosthetic femur fracture - s/ p open reduction and internal fixation postop day 1 Leukocytosis. Likely Reactive. no signs of infection noted. Follow-up CBC showing downtrend of WBC GERD, hiatal hernia Hypertension Parkinson's disease history of falls in the past Osteoarthritis BPH Diverticulosis DVT prophylaxis Plan:Continue with pain management as per primary team and DVT prophylaxis. Patient is resumed on carbidopa and levodopa for his history of Parkinson's disease. Encouraged incentive spirometry. Patient's blood pressure has been running on the lower side so will hold all blood pressure medications for now. Continue with IV hydration. Further recommendations to follow depending on the progress of the patient.
[2018-01-04] MEDS: SENNOSIDES-DOCUSATE SODIUM 1 EACH TAB PO SCH (21:00)
[2018-01-04] MEDS: FOLIC ACID 1 MG TAB PO SCH (21:00)
[2018-01-04] MEDS: SERTRALINE 50 MG TAB PO SCH (21:00)
[2018-01-04] MEDS: MULTIVITAMINS, THERA 1 EACH TAB PO SCH (21:01)
[2018-01-05 08:16] LABS: Basophils % (A) 0 %; Eosinophils # (A) 0.1 k/uL (0-0.7); Eosinophils % (A) 1 %; HCT 24.8 % (39.0-53.0); Lymphocytes # (A) 1.6 k/uL (1.0-4.8); Lymphocytes % (A) 16 %; MCH 33.1 pg (25.0-35.0); MCHC 32.5 g/dL (31.0-37.0); MCV 101.8 fL (80.0-100.0); Macrocytosis Slight; Mean Platelet Volume 7.5; Monocytes # (A) 0.7 k/uL (0-1.0); Monocytes % (A) 7 %; Neutrophils # (A) 7.2 k/uL (1.3-7.7); Neutrophils % (A) 73 %; Platelet Count 127 k/uL (150-450); RBC 2.43 m/uL (4.30-5.90); RDW 13.1 % (11.5-15.5); WBC 9.9 k/uL (3.8-10.6)
[2018-01-05] MEDS: TAMSULOSIN 0.4 MG CAP.ER.24H PO SCH (10:25)
[2018-01-05] MEDS: PANTOPRAZOLE 40 MG TABLET PO SCH (10:25)
[2018-01-05] MEDS: POTASSIUM CHLORIDE ER 20 MEQ TAB.ER PO SCH (10:25)
[2018-01-05] MEDS: cycloSPORINE 0.05% OPHTH 0.4 ML DROPERETTE BOTH EYES SCH ×3 (10:26→20:36)
[2018-01-05] MEDS: ENOXAPARIN 40 MG/0.4 ML SYRINGE SQ SCH (10:26)
[2018-01-05] MEDS: CARBIDOPA-LEVODOPA 25-100 MG 1 EACH TAB PO SCH ×2 (10:30→20:36)
[2018-01-05] MEDS: DICLOFENAC SODIUM GEL 100 GM TUBE TOPICAL SCH ×2 (10:33→20:36)
--- NOTE | 2018-01-05 11:12 | P.PN ---
Subjective Progress Note Date: 01/05/18 Principal diagnosis: Fall and right hip fracture - status post open reduction and internal fixation Patient is a 82-year-old male with a known history of hypertension, GERD, Parkinson's disease and history of falls, osteoarthritis and multiple other medical problems was brought to the ER status post fall and right hip pain. Patient does admit that he was trying to transfer from a wheelchair to his bed. He states that he did slip and he went down hit his head. States was no loss of consciousness. He does admit to pain to the right hip area. Right hip and pelvis x-ray showed Right periprosthetic femur fracture. No complicated process seen. Minimal osteoarthritis seen in the left hip CT head and cervical spine showed cerebral atrophy and chronic small vessel ischemic disease. No acute intracranial process. Multilevel spondylolysis and moderate spinal stenosis. Patient had a right hip open reduction and internal fixation of right periprosthetic femur fracture done on 01/03/18. He is postop day 2 today . Patient does lying in bed appears to be no acute distress. Overnight no active issues reported by nursing staff. Review of systems - patient mentions about soreness in the right hip region. Constitutional denies having any fevers chills or rigors. Cardiovascular no chest pain or palpitations Respiratory-no cough or difficulty in breathing patient has incentive spirometry at the bedside GI-no abdominal pain nausea vomiting or diarrhea. Objective - Vital Signs Vital signs: Vital Signs Temp 98.5 F 01/05/18 01:16 Pulse 79 01/05/18 03:12 Resp 24 01/05/18 03:12 BP 111/48 01/05/18 01:16 Pulse Ox 95 01/05/18 01:16 Intake & Output 01/04/18 01/05/18 01/05/18 18:59 06:59 18:59 Intake Total 568 240 120 Output Total 500 800 Balance 68 -560 120 Weight 80 kg Intake: Oral 568 240 120 Output: Urine 500 800 Uretheral (Alvarez) 500 Other: Voiding Method Indwelling Catheter Indwelling Catheter Indwelling Catheter - Exam Patient is lying in the bed comfortably, no acute distress, awake alert and oriented. HEENT: Normocephalic. Neck is supple. Pupils reactive. No pallor or icterus. Lips are dry and crackled. Neck reveals no JVD, carotid bruits, or thyromegaly. CHEST EXAMINATION: Lung thorpe clear to auscultation and percussion. CARDIAC: Normal S1, S2 with no gallops. No murmurs ABDOMEN: Soft. Bowel sounds normal. No organomegaly. No abdominal bruits. Extremities: reveal no edema. No clubbing or cyanosis Neurologically awake, alert, oriented x1-2 with well-coordinated movements. No focal deficits noted Musculoskeletal: Right hip tenderness - Labs CBC & Chem 7: 01/05/18 07:11 01/04/18 06:40 Labs: Abnormal Lab Results - Last 24 Hours (Table) 01/05/18 Range/Units 07:11 RBC 2.43 L (4.30-5.90) m/uL Hgb 8.0 L D (13.0-17.5) gm/dL Hct 24.8 L (39.0-53.0) % MCV 101.8 H (80.0-100.0) fL Plt Count 127 L (150-450) k/uL Microbiology - Last 24 Hours (Table) 01/02/18 17:19 Urine Culture - Final Urine,Voided Klebsiella pneumoniae Assessment and Plan Assessment: Mechanical fall and and right subtrochanteric periprosthetic femur fracture - s/ p open reduction and internal fixation postop day 1 UTI - urine cultures positive for Klebsiella - patient has been started on ceftriaxone GERD, hiatal hernia Hypertension Parkinson's disease history of falls in the past Osteoarthritis BPH Diverticulosis DVT prophylaxis Plan: Patient's urine culture is positive for Klebsiella -he has been started on ceftriaxone last night. Blood pressure improved with initiation of antibiotics. Continue with pain management as per primary team and DVT prophylaxis. Patient is resumed on carbidopa and levodopa for his history of Parkinson's disease. Encouraged incentive spirometry. . Continue with IV hydration. Further recommendations to follow depending on the progress of the patient.
--- NOTE | 2018-01-05 11:45 | P.PN ---
Progress Note - Text Progress Note Date: 01/05/18 Patient was seen lying in bed. He appears comfortable. He does state pain in right hip area but improving. Right hip- Incision stable. Thigh soft. Negative homans/margie. Distal NVI. Right elbow- Mild tenderness. Painless ROM. Xray- Right elbow: no FX Impression: S/P ORIF right periprosthetic subtrochanteric femur fracture Right elbow contusion Plan: Medical management DVT prophylaxis Pain management
[2018-01-05] MEDS: SODIUM CHLORIDE 0.9% 1,000 ML IV SCH ×2 (15:12→16:39)
[2018-01-05] MEDS: traMADol 50 MG TAB PO PRN ×2 (16:40→23:03)
[2018-01-05] MEDS: MULTIVITAMINS, THERA 1 EACH TAB PO SCH (20:36)
[2018-01-05] MEDS: FOLIC ACID 1 MG TAB PO SCH (20:36)
[2018-01-05] MEDS: SENNOSIDES-DOCUSATE SODIUM 1 EACH TAB PO SCH (20:37)
[2018-01-05] MEDS: SERTRALINE 50 MG TAB PO SCH (20:37)
[2018-01-06] MEDS: ENOXAPARIN 40 MG/0.4 ML SYRINGE SQ SCH (10:14)
[2018-01-06] MEDS: PANTOPRAZOLE 40 MG TABLET PO SCH (10:14)
[2018-01-06] MEDS: POTASSIUM CHLORIDE ER 20 MEQ TAB.ER PO SCH (10:14)
[2018-01-06] MEDS: traMADol 50 MG TAB PO PRN (10:14)
[2018-01-06] MEDS: cycloSPORINE 0.05% OPHTH 0.4 ML DROPERETTE BOTH EYES SCH ×2 (10:15→21:21)
[2018-01-06] MEDS: TAMSULOSIN 0.4 MG CAP.ER.24H PO SCH (10:15)
[2018-01-06] MEDS: CARBIDOPA-LEVODOPA 25-100 MG 1 EACH TAB PO SCH ×2 (10:15→21:31)
[2018-01-06] MEDS: DICLOFENAC SODIUM GEL 100 GM TUBE TOPICAL SCH ×2 (10:15→21:39)
--- NOTE | 2018-01-06 11:20 | P.PN ---
Progress Note - Text Progress Note Date: 01/06/18 Patient seen sitting up in chair. He does report some improvement since yesterday in regard to the right hip area discomfort. His right elbow discomfort has improved as well. Incision remained stable. Thigh remained soft. Distal neurovascular exam is intact. Negative Aleksander negative Homans. Some limited range of motion right elbow with no significant pain. Impression: Status post open reduction internal fixation right periprosthetic subtrochanteric fracture Right elbow contusion Plan: Medical management DVT prophylaxis Continue nonweightbearing right lower extremity Discharge planning
--- NOTE | 2018-01-06 15:31 | P.PN ---
Subjective Progress Note Date: 01/06/18 Principal diagnosis: Fall and right hip fracture - status post open reduction and internal fixation Patient is a 82-year-old male with a known history of hypertension, GERD, Parkinson's disease and history of falls, osteoarthritis and multiple other medical problems was brought to the ER status post fall and right hip pain. Patient does admit that he was trying to transfer from a wheelchair to his bed. He states that he did slip and he went down hit his head. States was no loss of consciousness. He does admit to pain to the right hip area. Right hip and pelvis x-ray showed Right periprosthetic femur fracture. No complicated process seen. Minimal osteoarthritis seen in the left hip CT head and cervical spine showed cerebral atrophy and chronic small vessel ischemic disease. No acute intracranial process. Multilevel spondylolysis and moderate spinal stenosis. Patient had a right hip open reduction and internal fixation of right periprosthetic femur fracture done on 01/03/18. He is postop day 3 today . Patient does lying in bed appears to be no acute distress. Overnight no active issues reported by nursing staff. Review of systems - patient mentions about soreness in the right hip region. Constitutional denies having any fevers chills or rigors. Cardiovascular no chest pain or palpitations Respiratory-no cough or difficulty in breathing GI-no abdominal pain nausea vomiting or diarrhea. Objective - Vital Signs Vital signs: Vital Signs Temp 98.8 F 01/06/18 07:48 Pulse 67 01/06/18 07:48 Resp 18 01/06/18 07:48 BP 114/58 01/06/18 07:48 Pulse Ox 95 01/06/18 07:48 Intake & Output 01/05/18 01/06/18 01/06/18 19:59 06:59 18:59 Intake Total 472 Output Total Balance 472 Intake: Intake, IV Titration Amount Sodium Chloride 0.9% 1, 000 ml @ 75 mls/hr IV . [id number] [facility] Rx#:[id number] Oral 472 Output: Urine Uretheral (Alvarez) Other: Voiding Method - Exam Patient is lying in the bed comfortably, no acute distress, awake alert and oriented. HEENT: Normocephalic. Neck is supple. Pupils reactive. No pallor or icterus. Lips are dry and crackled. Neck reveals no JVD, carotid bruits, or thyromegaly. CHEST EXAMINATION: Lung thorpe clear to auscultation and percussion. CARDIAC: Normal S1, S2 with no gallops. No murmurs ABDOMEN: Soft. Bowel sounds normal. No organomegaly. No abdominal bruits. Extremities: reveal no edema. No clubbing or cyanosis Neurologically awake, alert, oriented x1-2 with well-coordinated movements. No focal deficits noted Musculoskeletal: Right hip tenderness - Labs CBC & Chem 7: 01/05/18 07:11 01/04/18 06:40 Assessment and Plan Assessment: Mechanical fall and and right subtrochanteric periprosthetic femur fracture - s/ p open reduction and internal fixation postop day 1 UTI - urine cultures positive for Klebsiella - patient has been started on ceftriaxone GERD, hiatal hernia Hypertension Parkinson's disease history of falls in the past Osteoarthritis BPH Diverticulosis DVT prophylaxis Plan: Patient's urine culture is positive for Klebsiella -he has been started on ceftriaxone, that will be continued. Blood pressure improved with initiation of antibiotics. Continue with pain management as per primary team and DVT prophylaxis. Patient is resumed on carbidopa and levodopa for his history of Parkinson's disease. Encouraged incentive spirometry. Further recommendations to follow depending on the progress of the patient.
[2018-01-06 21:11] VITALS: RESP 16
[2018-01-06] MEDS: MULTIVITAMINS, THERA 1 EACH TAB PO SCH (21:31)
[2018-01-06] MEDS: SERTRALINE 50 MG TAB PO SCH (21:31)
[2018-01-06] MEDS: ACETAMINOPHEN TAB 325 MG TAB PO PRN (21:32)
[2018-01-06] MEDS: SENNOSIDES-DOCUSATE SODIUM 1 EACH TAB PO SCH (21:32)
[2018-01-06] MEDS: FOLIC ACID 1 MG TAB PO SCH (21:32)
[2018-01-06] MEDS: SODIUM CHLORIDE 0.9% 1,000 ML IV SCH (21:40)
[2018-01-07] MEDS: SODIUM CHLORIDE 0.9% 1,000 ML IV SCH (05:00)
[2018-01-07] MEDS: CARBIDOPA-LEVODOPA 25-100 MG 1 EACH TAB PO SCH (08:06)
[2018-01-07] MEDS: TAMSULOSIN 0.4 MG CAP.ER.24H PO SCH (08:06)
[2018-01-07] MEDS: cycloSPORINE 0.05% OPHTH 0.4 ML DROPERETTE BOTH EYES SCH (08:07)
[2018-01-07] MEDS: PANTOPRAZOLE 40 MG TABLET PO SCH (08:07)
[2018-01-07] MEDS: DICLOFENAC SODIUM GEL 100 GM TUBE TOPICAL SCH (08:07)
[2018-01-07] MEDS: ENOXAPARIN 40 MG/0.4 ML SYRINGE SQ SCH (08:08)
[2018-01-07] MEDS: ACETAMINOPHEN TAB 325 MG TAB PO PRN (09:16)
[2018-01-07 09:20] LABS: Basophils % (A) 0 %; Eosinophils # (A) 0.2 k/uL (0-0.7); Eosinophils % (A) 3 %; HCT 24.1 % (39.0-53.0); HGB 8.2 gm/dL (13.0-17.5); Lymphocytes # (A) 1.3 k/uL (1.0-4.8); Lymphocytes % (A) 19 %; MCH 33.4 pg (25.0-35.0); MCHC 33.9 g/dL (31.0-37.0); MCV 98.5 fL (80.0-100.0); Mean Platelet Volume 7.7; Monocytes # (A) 0.5 k/uL (0-1.0); Monocytes % (A) 8 %; Neutrophils # (A) 4.5 k/uL (1.3-7.7); Neutrophils % (A) 68 %; Platelet Count 189 k/uL (150-450); RBC 2.45 m/uL (4.30-5.90); RDW 12.8 % (11.5-15.5); WBC 6.6 k/uL (3.8-10.6)
--- NOTE | 2018-01-07 09:43 | P.PN ---
Subjective Progress Note Date: 01/07/18 Principal diagnosis: Status post ORIF periprosthetic right subtrochanteric femur fracture Patient is examined today bedside, he appears comfortable. He notes no significant discomfort involving the right hip. Denies any chest pain or shortness of breath this time. Objective - Vital Signs Vital signs: Vital Signs Temp 97.9 F 01/07/18 07:05 Pulse 69 01/07/18 07:05 Resp 16 01/07/18 01:00 BP 102/54 01/07/18 07:05 Pulse Ox 92 L 01/07/18 07:05 Intake & Output 01/06/18 01/07/18 01/07/18 18:59 06:59 18:59 Intake Total 1072 1180 236 Output Total 600 600 Balance 472 580 236 Intake: Intake, IV Titration 600 Amount Sodium Chloride 0.9% 1, 600 000 ml @ 75 mls/hr IV . [id number] [facility] Rx#:[id number] Oral 472 1180 236 Output: Urine 600 600 Uretheral (Alvarez) 600 - Exam Right lower extremity: Incision is clean, dry and intact, [place] are all in good position. Calf is soft, no tenderness with palpation. Plantar flexion, dorsiflexion, EHL, FHL are intact. Sensation to light touch throughout the lower extremities intact, skin is warm to touch. - Labs CBC & Chem 7: 01/07/18 08:38 01/04/18 06:40 Labs: Abnormal Lab Results - Last 24 Hours (Table) 01/07/18 Range/Units 08:38 RBC 2.45 L (4.30-5.90) m/uL Hgb 8.2 L (13.0-17.5) gm/dL Hct 24.1 L (39.0-53.0) % Assessment and Plan Plan: Assessment: 1. Post op day #4 s/p ORIF right periprosthetic subtrochanteric femur fracture Plan: 1. Pain control, will discharge on tramadol 50 mg 2. GI and DVT prophylaxis, will dc on heparin 5000 units q12 hours 3. Non weightbearing right lower extremity 4. Daily dressing changes 5. Medical recommendations 6. Plan for discharge to rehab today Time with Patient: Less than 30
--- NOTE | 2018-01-07 09:53 | P.DS ---
Providers Date of admission: 01/02/18 20:00 Expected date of discharge: 01/07/18 Attending physician: Berhane Yuen Consults: 01/02/18 20:00 Consult Physician Stat Consulting Provider: Carley Pascal Consult Reason/Comments: Subtrochanteric fracture Do you want consulting provider notified?: Yes Primary care physician: [facility] Course: Date of admission: 01/02/2018 Date of discharge: 01/07/2018 Admission diagnosis: Right periprosthetic femur fracture Discharge diagnosis: Status post ORIF right subtrochanteric periprosthetic femur fracture Attending physician: Dr. Yuen Surgical procedures: ORIF right subtrochanteric periprosthetic femur fracture Brief history: Patient is a 82-year-old male who presented to [facility] on 01/02/2018 after sustaining a fall. Patient stays at [facility]. Apparently he fell when transferring from his wheelchair to bed. Patient had immediate pain and was unable to bear weight on the right lower extremity. He was brought to [facility]. Images demonstrated a periprosthetic subtrochanteric femur fracture on the right side. Patient was admitted under our orthopedic care with plan for surgical intervention. Internal medicine's consult for medical management and surgical clearance. Hospital course: Details of patient's surgery can be found in operative report. Patient tolerated the procedure well and was subsequently transported to orthopedic floor. Patient's orthopeidc and medical care was provided daily. Patient had daily laboratory tests performed for evaluation of overall blood counts. Patient had daily physical therapy to include strengthening range of motion as well as education with walker ambulation. Patient was treated with Lovenox for their postoperative DVT prophylaxis during their inpatient stay. Patient was noted to have a relatively uneventful postoperative course. Patient reported satisfactory pain control with oral pain medications by postoperative day 0. Patient showed satisfactory progress with physical therapy. Patient moved steadily through the program and had no difficulty meeting the goals by postoperative day 4. Given patient's otherwise satisfactory course and having met physical therapy goals, plan is to discharge patient rehab on postoperative day 4. Discharge condition/disposition: Patient will be discharged rehab in stable condition. Discharge medications: Instructions are given on resumption of patient's normal daily medications per primary care recommendation, in addition patient will be prescribed tramadol 50mg, heparin 5000 units Discharge instructions: 1. Wound care and infection precautions, keep incision dry and covered while showering, no lotions, creams, moisturizers. No soaking, tubs, pools, hottubs. Do not scrub over the incision. 2. Nonweightbearing right lower extremity 3. Ice and elevate when necessary. Do not exceed 20 minutes per hour with ice pack. 4. Utilize compression sleeve until seen at first follow up appointment. 5. Pain meds and anticoagulants per prescription. 6. Pain medication has potential to cause constipation. Increase oral fluid and fiber intake. Contact primary care provider if you have not had a bowel movement within 48 hours after discharge 7. No anti-inflammatory medication until discussed at first post operative visit, this including Motrin, Aleve, Mobic, Diclofenac. 8. Follow up in office at 2 weeks postop with Babak Eisenberg PA-C 9. Follow up with your primary care doctor 7-10 days after discharge. 10. Contact [facility] with any questions, . Procedures: Open reduction internal fixation right periprosthetic subtrochanteric femur fracture Patient Condition at Discharge: Good Plan - Discharge Summary Discharge Rx Participant: Yes New Discharge Prescriptions: New traMADol HCL [Ultram] 50 mg PO Q6HR PRN 7 Days #28 tab PRN Reason: Pain Heparin Sodium,Porcine [Heparin Sodium] 5,000 unit SQ Q12HR #60 vial No Action Acetaminophen Tab [Tylenol] 650 mg PO TID@0500,1300,2100 Sertraline HCl [Zoloft] 75 mg PO HS@2000 Sennosides [Senna] 8.6 mg PO HS PRN PRN Reason: Constipation Carbidopa-Levodopa 25-100 mg [Sinemet 25-100 mg] 2 tab PO BID Diclofenac Sodium [Voltaren Gel] 2 gram TOPICAL BID Tamsulosin HCl [Flomax] 0.4 mg PO DAILY Omeprazole [PriLOSEC] 20 mg PO DAILY Acetaminophen Tab [Tylenol] 650 mg PO Q4H PRN PRN Reason: Fever Multivitamins, Thera [Multivitamin (formulary)] 1 tab PO HS Furosemide [Lasix] 40 mg PO DAILY #0 tab Potassium Chloride ER [K-Dur 20] 20 meq PO DAILY #10 tab cycloSPORINE 0.05% OPHTH SOLN [Restasis] 1 drop BOTH EYES BID amLODIPine [Norvasc] 10 mg PO DAILY Lisinopril [Zestril] 10 mg PO DAILY Folic Acid 0.4 mg PO HS Discharge Medication List Acetaminophen Tab [Tylenol] 650 mg PO TID@0500,1300,2100 04/07/16 [History] Sertraline HCl [Zoloft] 75 mg PO HS@199904/07/16 [History] Sennosides [Senna] 8.6 mg PO HS PRN 04/20/16 [History] Carbidopa-Levodopa 25-100 mg [Sinemet 25-100 mg] 2 tab PO BID 08/05/16 [History] Diclofenac Sodium [Voltaren Gel] 2 gram TOPICAL BID 08/05/16 [History] Omeprazole [PriLOSEC] 20 mg PO DAILY 08/05/16 [History] Tamsulosin HCl [Flomax] 0.4 mg PO DAILY 08/05/16 [History] Acetaminophen Tab [Tylenol] 650 mg PO Q4H PRN 04/10/17 [History] Multivitamins, Thera [Multivitamin (formulary)] 1 tab PO HS 04/10/17 [History] Furosemide [Lasix] 40 mg PO DAILY #0 tab 05/29/17 [Rx] Potassium Chloride ER [K-Dur 20] 20 meq PO DAILY #10 tab 05/29/17 [Rx] Folic Acid 0.4 mg PO HS 01/02/18 [History] Lisinopril [Zestril] 10 mg PO DAILY 01/02/18 [History] amLODIPine [Norvasc] 10 mg PO DAILY 01/02/18 [History] cycloSPORINE 0.05% OPHTH SOLN [Restasis] 1 drop BOTH EYES BID 01/02/18 [History] Heparin Sodium,Porcine [Heparin Sodium] 5,000 unit SQ Q12HR #60 vial 01/07/18 [ Rx] traMADol HCL [Ultram] 50 mg PO Q6HR PRN 7 Days #28 tab 01/07/18 [Rx] Follow up Appointment(s)/Referral(s): Bruce Everett MD [Primary Care Provider] - 1-2 days [facility], [NON-STAFF] - As Needed Ted Eisenberg PAC [PHYSICIAN ULTRASOUND COORDINATOR] - 2 Weeks Activity/Diet/Wound Care/Special Instructions: Orthopedic Discharge Instructions: 1. Wound care and infection precautions, keep incision dry and covered while showering, no lotions, creams, moisturizers. No soaking, pools, hot tubs. Do not scrub over incision. 2. Nonweightbearing right lower extremity 3. Ice and elevate when necessary. Do not exceed 20 minutes per hour with ice pack. 4. Utilize compression sleeve until seen at first follow up appointment. 5. Pain meds and anticoagulants per prescription. 6. Pain medication has potential to cause constipation. Increase oral fluid and fiber intake. Contact primary care provider if you have not had a bowel movement within 48 hours after discharge. 7. No anti-inflammatory medication until discussed at first post operative visit, this including Motrin, Aleve, Mobic, Diclofenac 8. Follow up in office at 2 weeks postop with Babak Eisenberg PA-C 9. Follow up with your primary care doctor 7-10 days after discharge. 10. Contact [facility] with any questions, . Incision instructions: 1. Keep incision dry and covered while showering with [place] are in position 2. Okay to remove stitches on 01/17/2018 Anticoagulation instructions: 1. Utilize heparin as scheduled, discontinue on 01/31/2018 Discharge Disposition: TRANSFER TO SNF/ECF
[2018-01-07 15:47] VITALS: BP 110/61; PULSE 73; TEMP 98.9
--- NOTE | 2018-01-08 23:46 | P.PN ---
Subjective Progress Note Date: 01/07/18 Principal diagnosis: Fall and right hip fracture - status post open reduction and internal fixation Patient is a 82-year-old male with a known history of hypertension, GERD, Parkinson's disease and history of falls, osteoarthritis and multiple other medical problems was brought to the ER status post fall and right hip pain. Patient does admit that he was trying to transfer from a wheelchair to his bed. He states that he did slip and he went down hit his head. States was no loss of consciousness. He does admit to pain to the right hip area. Right hip and pelvis x-ray showed Right periprosthetic femur fracture. No complicated process seen. Minimal osteoarthritis seen in the left hip CT head and cervical spine showed cerebral atrophy and chronic small vessel ischemic disease. No acute intracranial process. Multilevel spondylolysis and moderate spinal stenosis. 01/06/2018 Patient had a right hip open reduction and internal fixation of right periprosthetic femur fracture done on 01/03/18. He is postop day 3 today . Patient does lying in bed appears to be no acute distress. Overnight no active issues reported by nursing staff. 01/07/2018 Currently right hip pain is better. Urine cultures is growing Klebsiella. Hemodynamically stable. Patient is being discharged to rehab today. Discharge medication reconciliation was done. No fever no chills. No nausea vomiting or abdominal pain. No other acute overnight issues. No chest pain or shortness of breath. Current medications reviewed. Objective - Vital Signs Vital signs: Vital Signs Temp 97.9 F 01/07/18 07:05 Pulse 69 01/07/18 07:05 Resp 16 01/07/18 01:00 BP 102/54 01/07/18 07:05 Pulse Ox 92 L 01/07/18 07:05 Intake & Output 01/06/18 01/07/18 01/07/18 18:59 06:59 18:59 Intake Total 1072 1180 236 Output Total 600 600 Balance 472 580 236 Intake: Intake, IV Titration 600 Amount Sodium Chloride 0.9% 1, 600 000 ml @ 75 mls/hr IV . [id number] [facility] Rx#:[id number] Oral 472 1180 236 Output: Urine 600 600 Uretheral (Alvarez) 600 - Exam Patient is lying in the bed comfortably, no acute distress, awake alert and oriented. HEENT: Normocephalic. Neck is supple. Pupils reactive. No pallor or icterus. Lips are dry and crackled. Neck reveals no JVD, carotid bruits, or thyromegaly. CHEST EXAMINATION: Lung thorpe clear to auscultation and percussion. CARDIAC: Normal S1, S2 with no gallops. No murmurs ABDOMEN: Soft. Bowel sounds normal. No organomegaly. No abdominal bruits. Extremities: reveal no edema. No clubbing or cyanosis Neurologically awake, alert, oriented x1-2 with well-coordinated movements. No focal deficits noted Musculoskeletal: Right hip tenderness - Labs CBC & Chem 7: 01/07/18 08:38 01/04/18 06:40 Labs: Abnormal Lab Results - Last 24 Hours (Table) 01/07/18 Range/Units 08:38 RBC 2.45 L (4.30-5.90) m/uL Hgb 8.2 L (13.0-17.5) gm/dL Hct 24.1 L (39.0-53.0) % Assessment and Plan Assessment: Mechanical fall and and right subtrochanteric periprosthetic femur fracture - s/ p open reduction and internal fixation postop day 1 UTI - urine cultures positive for Klebsiella - patient has been started on ceftriaxone GERD, hiatal hernia Hypertension Parkinson's disease history of falls in the past Osteoarthritis BPH Diverticulosis DVT prophylaxis Plan: Patient's urine culture is positive for Klebsiella -he has been started on ceftriaxone, that will be continued. We will change to Ceftin. Blood pressure improved with initiation of antibiotics. Continue with pain management as per primary team and DVT prophylaxis. Patient is resumed on carbidopa and levodopa for his history of Parkinson's disease. Encouraged incentive spirometry. Further recommendations to follow depending on the progress of the patient. Patient is being discharged to rehab today. Time with Patient: Greater than 30
== END 2018-01-07 17:45 | DRG 481 ==
LOC: EEVIPCON 16:32 → EC 16:32 → 4SSUR 20:00
PROVIDERS: ADMIT Orthopaedic Surgery; ATTEND Orthopaedic Surgery
PROC: 0QS604Z Reposition Right Upper Femur with Internal Fixation Device, Open Approach (ICD-10-PCS; principal; 2018-01-03 09:00)
DX: S72.21XA Displaced subtrochanteric fracture of right femur, initial encounter for closed fracture (principal); M97.01XA Periprosthetic fracture around internal prosthetic right hip joint, initial encounter; N39.0 Urinary tract infection, site not specified; W05.0XXA Fall from non-moving wheelchair, initial encounter; Y92.122 Bedroom in nursing home as the place of occurrence of the external cause; B96.1 Klebsiella pneumoniae [K. pneumoniae] as the cause of diseases classified elsewhere; G20 Parkinson's disease; I10 Essential (primary) hypertension; K21.9 Gastro-esophageal reflux disease without esophagitis; K44.9 Diaphragmatic hernia without obstruction or gangrene; K57.90 Diverticulosis of intestine, part unspecified, without perforation or abscess without bleeding; M19.012 Primary osteoarthritis, left shoulder; M19.011 Primary osteoarthritis, right shoulder; G89.29 Other chronic pain; Z91.81 History of falling; M43.00 Spondylolysis, site unspecified; M48.00 Spinal stenosis, site unspecified; N40.1 Benign prostatic hyperplasia with lower urinary tract symptoms; N39.498 Other specified urinary incontinence; S50.01XA Contusion of right elbow, initial encounter; Z96.641 Presence of right artificial hip joint; Z99.3 Dependence on wheelchair; Z79.899 Other long term (current) drug therapy; D64.9 Anemia, unspecified; Z87.440 Personal history of urinary (tract) infections; Z87.01 Personal history of pneumonia (recurrent)
CPT/HCPCS: 36415; 70450; 72125; 73501; 73502; 80048; 80053; 81001; 85025; 86850; 86900; 86901; 87077; 87086; 87186; 93005; 96374; 96375; 99285

== ENCOUNTER → 2019-02-17 | Outpatient (CLI) | payer MEDICARE, OTHER ==
--- NOTE | 2019-02-17 11:36 | CT ---
EXAMINATION TYPE: CT brain wo con DATE OF EXAM: 02/17/2019 COMPARISON: 01/02/2018 HISTORY: I63.9 Cerebral infarction, unspecified Unenhanced CT of the brain was performed. The ventricles, basal cisterns and sulci overlying the cerebral convexities demonstrate moderate enla rgement. There is no evidence for intracranial hemorrhage or sulcal effacement. There is decreased attenuation about the periventricular white matter and deep white matter of both c erebral hemispheres, compatible with chronic small vessel ischemia. Differential diagnosis does inclu de demyelination. No mass effects are seen.No midline shift. Osseous calvarium is intact. If symptoms persist consider MRI. IMPRESSION: 1. Age related atrophic and chronic small vessel ischemic change without acute intracranial process s een at this time.
== END | disposition home or self-care (01) ==
LOC: RADCTMAIN 10:35
PROVIDERS: ATTEND Psychiatry & Neurology Neurology
DX: G31.1 Senile degeneration of brain, not elsewhere classified (principal); I67.82 Cerebral ischemia
CPT/HCPCS: 70450

== ENCOUNTER 2019-05-14 12:52 | Emergency (ER) | payer MEDICARE, OTHER ==
[2019-05-14 13:02] VITALS: TEMP 98.1
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
[2019-05-14 13:26] VITALS: RESP 18
[2019-05-14 13:30] LABS: Glucose,Whole Blood 108 mg/dL (75-99)
[2019-05-14 13:35] LABS: Basophils % (A) 1 %; Eosinophils # (A) 0.4 k/uL (0-0.7); Eosinophils % (A) 7 %; HCT 40.9 % (39.0-53.0); HGB 13.4 gm/dL (13.0-17.5); Lymphocytes # (A) 1.4 k/uL (1.0-4.8); Lymphocytes % (A) 27 %; MCH 32.6 pg (25.0-35.0); MCHC 32.7 g/dL (31.0-37.0); MCV 99.8 fL (80.0-100.0); Mean Platelet Volume 7.6; Monocytes # (A) 0.4 k/uL (0-1.0); Monocytes % (A) 7 %; Neutrophils # (A) 2.8 k/uL (1.3-7.7); Neutrophils % (A) 54 %; Platelet Count 135 k/uL (150-450); RDW 12.5 % (11.5-15.5); WBC 5.1 k/uL (3.8-10.6)
[2019-05-14 14:06] LABS: African American GFR (CKD) >90 (>60 ml/min/1.73 sqM); Anion Gap 5 mmol/L; Blood Urea Nitrogen 20 mg/dL (9-20); Calcium 9.5 mg/dL (8.4-10.2); Carbon Dioxide 27 mmol/L (22-30); Chloride 106 mmol/L (98-107); Glucose 116 mg/dL (74-99); Non-African American GFR(CKD) 84 (>60 ml/min/1.73 sqM); Potassium 4.3 mmol/L (3.5-5.1); Sodium 138 mmol/L (137-145)
--- NOTE | 2019-05-14 15:01 | CT ---
EXAMINATION TYPE: CT brain cspine wo con DATE OF EXAM: 05/14/2019 COMPARISON: 02/17/2019 HISTORY: Fall today with pain and possible injury. CT DLP: 1454.6 mGycm Automated exposure control for dose reduction was used. TECHNIQUE: CT scan of the head and cervical spine are performed without contrast. FINDINGS: There is moderate to severe generalized degenerative change. Low-attenuation the white ma tter is nonspecific but most typical remote microvascular ischemia. Abnormal attenuation involving th e basal ganglia suggestive of remote lacunar infarct. Calvarium intact. Assessment spinal canal is limited by artifact and resolution. There is a minimal anterolisthesis of C2 on C3. Retrolisthesis of C5 relative to C6 of 2 mm. There is severe degenerative disc disease and facet arthropathy at all levels with multilevel foramin al encroachment and canal stenosis suspected. Assessment for disc herniation is nondiagnostic. There is motion artifact which significantly limits the exam. Areas of consolidation the right upper lobe a re incidentally noted neoplasm not excluded. Calcification the soft tissues of the neck appear vascul ar. Scoliosis of the thoracolumbar spine noted. IMPRESSION: 1. There is no acute fracture or dislocation evident in the cervical spine. Severe multilevel degener ative disc disease and facet arthropathy with multilevel foraminal encroachment and canal stenosis woo spected. Exam limited by motion artifact recommend follow-up MRI. 2. No acute intracranial hemorrhage, mass effect, or midline shift is seen. Degenerative and remote i schemic change noted. 3. There is an area of consolidation the right upper lobe could represent an area of pneumonia or johnny plasm.
--- NOTE | 2019-05-14 15:07 | XR ---
EXAMINATION TYPE: XR shoulder complete BILAT DATE OF EXAM: 05/14/2019 CLINICAL HISTORY: Right shoulder pain after fall TECHNIQUE: Three views of the bilateral shoulders were obtained. COMPARISON: 04/11/2016 FINDINGS: On the right there is severe acromioclavicular arthropathy and a high riding humerus indica tive of chronic rotator cuff tear. There is remodeling of the acromion. No fracture or dislocation is n't identified on the right. Soft tissues are unremarkable. Mild glenohumeral arthropathy. Diffuse os seous demineralization. Similarly on the left there is a high riding left humerus and only slight rem odeling of the acromion. Moderate acromioclavicular arthropathy and mild left glenohumeral arthropath y are also seen with no acute fracture or dislocation. IMPRESSION: There is no acute fracture or dislocation in either shoulder. There is severe arthropath y of the right shoulder and moderate of the left with sequela of chronic rotator cuff tears bilateral ly.
--- NOTE | 2019-05-14 15:07 | XR ---
EXAMINATION TYPE: XR chest 1V portable DATE OF EXAM: 05/14/2019 COMPARISON: 05/28/2017 HISTORY: Pain post fall TECHNIQUE: Single frontal view of the chest is obtained. FINDINGS: There is an area of consolidation in the right upper lobe. Elevated right hemidiaphragm se en. One can of both costophrenic angles. Heart size stable. No overt failure. Diffuse osteopenia. IMPRESSION: 1. Stable elevated right hemidiaphragm with bilateral areas of consolidation and small effusion. 2. Patchy infiltrate in the right upper lobe corresponds to the CT abnormality.
--- NOTE | 2019-05-14 15:11 | XR ---
AP pelvis HISTORY: Trauma and pain Single frontal view of the pelvis is submitted. Comparison to prior pelvis dated 01/02/2018 Correlation to right hip dated 01/03/2018 Patient is status post right hip arthroplasty, bone mineralization is reduced could limit sensitivity . Arthropathy noted in the left hip with some marginal spurring. Vascular calcifications are noted in cidentally. No evident dislocation. Patient is rotated. Retained fecal debris present within the rect um. Overlying bowel gas is noted. impression: No acute fracture is evident. Additional findings above.
[2019-05-14 15:58] VITALS: BP 153/81; PULSE 87
[2019-05-14 16:24] LABS: Amorphous Sediment,Urine Rare /hpf; Appearance,Urine Cloudy (Clear); Bacteria,Urine Occasional /hpf; Bilirubin,Urine Negative (Negative); Blood,Urine Negative (Negative); Color,Urine Yellow; Glucose,Urine (UA) Negative (Negative); Ketones,Urine Negative (Negative); Leukocyte Esterase,Urine Trace (Negative); Mucus,Urine Rare /hpf; Nitrite,Urine Negative (Negative); Protein,Urine 1+ (Negative); RBC,Urine 3 /hpf (0-5); Specific Gravity,Urine 1.024 (1.001-1.035); Urobilinogen,Urine <2.0 mg/dL (<2.0); WBC,Urine 6 /hpf (0-5)
== END 2019-05-14 17:42 | disposition home or self-care (01) ==
LOC: EC 12:52
DX: Z00.00 Encounter for general adult medical examination without abnormal findings (principal); I10 Essential (primary) hypertension; K21.9 Gastro-esophageal reflux disease without esophagitis; G20 Parkinson's disease; Z79.899 Other long term (current) drug therapy; W19.XXXA Unspecified fall, initial encounter
CPT/HCPCS: 36415; 70450; 71045; 72125; 72170; 80048; 81001; 85025; 87502; 93005; 99284

== ENCOUNTER 2019-05-25 21:54 | Inpatient (IN) | payer MEDICARE, OTHER ==
[2019-05-25] MEDS ORDERED: ACETAMINOPHEN SUPPOSITORY 650 MG SUPP RECTAL STA (21:57)
[2019-05-25] MEDS: SODIUM CHLORIDE 0.9% 500 ML 500 ML IV SCH ×2 (22:04→22:37)
[2019-05-25 22:20] LABS: Basophils % (A) 0 %; Eosinophils # (A) 0.1 k/uL (0-0.7); Eosinophils % (A) 1 %; HGB 14.4 gm/dL (13.0-17.5); Lymphocytes # (A) 0.5 k/uL (1.0-4.8); Lymphocytes % (A) 4 %; MCH 31.9 pg (25.0-35.0); MCHC 31.9 g/dL (31.0-37.0); Mean Platelet Volume 7.6; Monocytes # (A) 0.3 k/uL (0-1.0); Monocytes % (A) 3 %; Neutrophils # (A) 11.4 k/uL (1.3-7.7); Neutrophils % (A) 92 %; Platelet Count 214 k/uL (150-450); RDW 12.4 % (11.5-15.5); WBC 12.4 k/uL (3.8-10.6)
[2019-05-25 22:29] LABS: Appearance,Urine Clear (Clear); Bilirubin,Urine Negative (Negative); Blood,Urine Negative (Negative); Color,Urine Yellow; Glucose,Urine (UA) Negative (Negative); Ketones,Urine Negative (Negative); Leukocyte Esterase,Urine Negative (Negative); Nitrite,Urine Negative (Negative); PH, Urine 5.5 (5.0-8.0); Protein,Urine Trace (Negative); Specific Gravity,Urine 1.022 (1.001-1.035); Urobilinogen,Urine <2.0 mg/dL (<2.0)
[2019-05-25 22:30] LABS: Partial Thromboplastin Time 26.7 sec (22.0-30.0); Prothrombin Time 10.5 sec (9.0-12.0)
--- NOTE | 2019-05-25 22:44 | XR ---
EXAMINATION TYPE: XR chest 1V portable DATE OF EXAM: 05/25/2019 COMPARISON: 05/14/2019 HISTORY: Short of breath and fever TECHNIQUE: FINDINGS: There is marked elevation of the right diaphragm. There is no gross heart failure. There is significant atelectasis right lung base. Thoracic aorta is atheromatous. There is coarsening of the interstitial markings. Bony thorax is intact. There are chest leads. IMPRESSION: Marked elevation of the right diaphragm. This could relate to paralysis. There is increas ed interstitial infiltrate right lung compared to last exam. No heart failure seen.
[2019-05-25 22:49] LABS: ALT 6 U/L (4-49); AST 29 U/L (17-59); African American GFR (CKD) >90 (>60 ml/min/1.73 sqM); Albumin 4.1 g/dL (3.5-5.0); Alkaline Phosphatase 89 U/L (38-126); Anion Gap 5 mmol/L; Blood Urea Nitrogen 24 mg/dL (9-20); C Reactive Protein 16.5 mg/L (<10.0); Calcium 9.9 mg/dL (8.4-10.2); Carbon Dioxide 27 mmol/L (22-30); Chloride 107 mmol/L (98-107); Glucose 121 mg/dL (74-99); Non-African American GFR(CKD) 87 (>60 ml/min/1.73 sqM); Potassium 4.6 mmol/L (3.5-5.1); Sodium 139 mmol/L (137-145); Total Bilirubin 0.7 mg/dL (0.2-1.3); Total Protein 7.5 g/dL (6.3-8.2)
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
[2019-05-26] MEDS ORDERED: PNEUMONIA PROTOCOL UTILIZED 1 EACH MISC PO PRN
[2019-05-26] MEDS: SODIUM CHLORIDE 0.9% 1,000 ML IV SCH ×3 (00:56→16:34)
[2019-05-26] MEDS: PIPERACILLIN-TAZOBACTAM 3.375 GM in SODIUM CHLORIDE 0.9% 100 ML IVPB SCH ×3 (00:56→16:34)
[2019-05-26] MEDS ORDERED: ACETAMINOPHEN SUPPOSITORY 650 MG SUPP RECTAL PRN (01:00)
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
[2019-05-26] MEDS ORDERED: SENNOSIDES 8.6 MG TAB PO PRN (13:22)
[2019-05-26] MEDS ORDERED: IPRATROPIUM-ALBUTEROL 3 ML NEB INHALATION PRN (13:22)
[2019-05-26] MEDS ORDERED: BISMUTH SUBSALICYLATE 4,192 MG/240 ML BOTTLE PO PRN (13:22)
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
[2019-05-26] MEDS: CARBIDOPA-LEVODOPA ER 50-200MG 1 EACH TABLET.ER PO SCH (16:35)
[2019-05-26] MEDS: SERTRALINE 50 MG TAB PO SCH (20:38)
[2019-05-26] MEDS: FAMOTIDINE 20 MG/2 ML VIAL IV SCH (20:39)
[2019-05-26] MEDS: FOLIC ACID 1 MG TAB PO SCH (20:43)
[2019-05-26] MEDS: HEPARIN SODIUM,PORCINE 5,000 UNIT/ML 1 ML VIAL SQ SCH (20:43)
[2019-05-26] MEDS: cycloSPORINE 0.05% OPHTH 0.4 ML DROPERETTE BOTH EYES SCH (22:13)
[2019-05-27] MEDS: PIPERACILLIN-TAZOBACTAM 3.375 GM in SODIUM CHLORIDE 0.9% 100 ML IVPB SCH ×4 (00:19→23:23)
[2019-05-27] MEDS: SODIUM CHLORIDE 0.9% 1,000 ML IV SCH ×3 (01:48→21:37)
[2019-05-27 07:02] LABS: Basophils % (A) 0 %; Eosinophils # (A) 0.3 k/uL (0-0.7); Eosinophils % (A) 5 %; HCT 37.8 % (39.0-53.0); HGB 12.1 gm/dL (13.0-17.5); Lymphocytes # (A) 1.7 k/uL (1.0-4.8); Lymphocytes % (A) 27 %; MCH 32.4 pg (25.0-35.0); MCHC 31.9 g/dL (31.0-37.0); MCV 101.4 fL (80.0-100.0); Mean Platelet Volume 8.1; Monocytes # (A) 0.6 k/uL (0-1.0); Monocytes % (A) 9 %; Neutrophils # (A) 3.5 k/uL (1.3-7.7); Neutrophils % (A) 55 %; Platelet Count 159 k/uL (150-450); RBC 3.73 m/uL (4.30-5.90); RDW 12.4 % (11.5-15.5); WBC 6.3 k/uL (3.8-10.6)
[2019-05-27 07:09] LABS: African American GFR (CKD) >90 (>60 ml/min/1.73 sqM); Anion Gap 5 mmol/L; Blood Urea Nitrogen 15 mg/dL (9-20); Carbon Dioxide 26 mmol/L (22-30); Chloride 108 mmol/L (98-107); Glucose 99 mg/dL (74-99); Non-African American GFR(CKD) 79 (>60 ml/min/1.73 sqM); Potassium 4.3 mmol/L (3.5-5.1); Sodium 139 mmol/L (137-145)
[2019-05-27] MEDS: HEPARIN SODIUM,PORCINE 5,000 UNIT/ML 1 ML VIAL SQ SCH ×2 (07:48→21:30)
[2019-05-27] MEDS: CARBIDOPA-LEVODOPA ER 50-200MG 1 EACH TABLET.ER PO SCH ×3 (07:48→16:51)
[2019-05-27] MEDS: TAMSULOSIN 0.4 MG CAP.ER.24H PO SCH (07:48)
[2019-05-27] MEDS: FAMOTIDINE 20 MG/2 ML VIAL IV SCH ×2 (07:49→21:29)
[2019-05-27] MEDS: cycloSPORINE 0.05% OPHTH 0.4 ML DROPERETTE BOTH EYES SCH ×2 (07:50→21:32)
--- NOTE | 2019-05-27 09:44 | P.PN ---
Subjective Progress Note Date: 05/27/19 Principal diagnosis: Right lower lobe pneumonia This is an 84-year-old gentleman who follows with Dr. Everett as his primary care provider. He resides in an extended care facility. He has a history of Parkinson's disease, previous stroke, hypertension, GERD, previous UTI/sepsis, lifelong nonsmoker. He was brought in from the [facility] to the emergency room yesterday after being found somewhat lethargic and febrile. He was able to state his name, his location and the president on arrival. Still somewhat of a poor historian. Chest x-ray revealed markedly elevation of the right diaphragm. Possibly related to a paralysis. Increased interstitial infiltrate at the right lung compared to previous of 05/14/2019. White count 12.4. Hemoglobin 14.4. Sodium 139. Potassium 4.6. Creatinine 0.67. Urinalysis negative. Influenza screen negative. Pro-calcitonin 0.22. He was given 1 L of fluid resuscitation and initiated on Zosyn. He presented with a T-max of 102.6. He was also screened for COVID 19 which is pending. There is been no reported cases at his [facility] however many residents are sick according to staff. He is seen today in consultation on the regular medical floor. Currently awake and alert. Maintaining O2 saturations in the 90s on 4 L/m per nasal cannula. Currently afebrile. Hemodynamically stable. The patient is seen today 05/27/2019 in follow-up on the regular medical floor. Awake and alert in no acute distress. Maintaining O2 saturations in the mid 90s on 3 L/m per nasal cannula. He is afebrile. White count 6.3. Hemoglobin 12.1. Leukocytes 1.7. Creatinine 0.85. He is continued on DuoNeb inhalations and Zosyn. Objective - Vital Signs Vital signs: Vital Signs Temp 97.7 F 05/27/19 05:00 Pulse 80 05/27/19 08:16 Resp 20 05/27/19 05:00 BP 149/74 05/27/19 05:00 Pulse Ox 95 05/27/19 05:00 Intake & Output 05/26/19 05/27/19 05/27/19 18:59 06:59 18:59 Intake Total 780 400 Balance 780 400 Intake: Oral 780 400 Other: Voiding Method Incontinent Incontinent # Voids 4 2 - Exam GENERAL EXAM: Alert, 84-year-old gentleman, on 3 L nasal cannula, comfortable in no apparent distress. HEAD: Normocephalic. EYES: Normal reaction of pupils, equal size. NOSE: Clear with pink turbinates. THROAT: No erythema or exudates. NECK: No masses, no JVD. CHEST: No chest wall deformity. LUNGS: Equal air entry with crackles in the right posterior base, diminished. CVS: S1 and S2 normal with no audible murmur, regular rhythm. ABDOMEN: No hepatosplenomegaly, normal bowel sounds, no guarding or rigidity. SPINE: No scoliosis or deformity SKIN: No rashes CENTRAL NERVOUS SYSTEM: No focal deficits, tone is normal in all 4 extremities. EXTREMITIES: There is no peripheral edema. No clubbing, no cyanosis. Peripheral pulses are intact. - Labs CBC & Chem 7: 05/27/19 06:39 05/27/19 06:39 Labs: Abnormal Lab Results - Last 24 Hours (Table) 05/25/19 05/27/19 05/27/19 Range/Units 22:04 06:39 06:39 RBC 3.73 L (4.30-5.90) m/uL Hgb 12.1 L (13.0-17.5) gm/dL Hct 37.8 L (39.0-53.0) % MCV 101.4 H (80.0-100.0) fL Chloride 108 H (98-107) mmol/L Procalcitonin 0.22 H (0.02-0.09) ng/mL Microbiology - Last 24 Hours (Table) 05/25/19 22:04 Blood Culture - Preliminary Blood No Growth after 24 hours Assessment and Plan Assessment: 1 Altered mental status with lethargy possibly healthcare acquired right lower lobe pneumonia versus bronchitis 2 Febrile illness of unclear etiology, COVID 19 testing pending 3 Acute hypoxic respiratory failure secondary to above 4 Right hemidiaphragm elevation with volume loss 5 History of hypertension 6 Parkinson's disease and is wheelchair bound 7 History of urinary incontinence and previous UTI 8 History of lower GI bleed Plan: The patient was seen and evaluated by Dr. Hall. Continue Zosyn. Repeat chest x-ray in a.m. Continue 0.9 NS @ 100 MLS per hour Remains afebrile. Awaiting Covid 19 results. Continue isolation precautions. DO NOT RESUSCITATE/DO NOT INTUBATE CODE STATUS. We'll continue to follow. I, the cosigning physician, performed a history & physical examination of the patient. Lungs sounds with crackles in the right base, diminished. Maintaining good O2 saturations in the 90s on 3 L/m per nasal cannula. I discussed the assessment and plan of care with my nurse practitioner, Carolee Ortega. I attest to the above note as dictated by her.
--- NOTE | 2019-05-27 10:49 | CDI ---
Documentation Clarification Form Date: 05/27/2019 10:43:45 AM From: Esther Hunt RN, CCDS Admit Date: 05/26/2019 12:03:00 AM Patient Name: Harrison Ponce Visit Number: [id number] ATTENTION: The Clinical Documentation Specialists (CDI) and [facility] Coding Staff appreciate your assistance in clarifying documentation. Please respond to the clarification below the line at the bottom and electronically sign. The CDI & [facility] Coding staff will review the response and follow-up if needed. Please note: Queries are made part of the Legal Health Record. If you have any questions, please contact the author of this message via ITS. Dr. Lopez Sheet A diagnosis of anemia lacks specificity to accurately reflect your patients severity of condition and clarification is needed. History/Risk Factors: Anemia, sepsis, Parkinsonism, lower GIB, diverticular disease Clinical indicators: 05/25 H&P: "anemia" 05/24& 05/26 Hemoglobin: 14.4/12.1 05/24 & 05/26 Hematocrit: 45/37.8 Treatment: Monitoring labs 05/24 1L 0.9% NS IVF Bolus followed by 100 cc/hr In order to capture the severity of condition, please clarify the type of anemia and etiology if known: Chronic blood loss anemia Iron deficiency anemia Drug induced anemia Nutritional anemia Anemia of chronic disease Unable to determine Other, please specify (Last Revision: December 2016) Unable to determine MTDD
--- NOTE | 2019-05-27 11:03 | CDI ---
Documentation Clarification Form Date: 05/27/2019 10:58:16 AM From: Esther Hunt RN, CCDS Admit Date: 05/26/2019 12:03:00 AM Patient Name: Harrison Ponce Visit Number: [id number] ATTENTION: The Clinical Documentation Specialists (CDI) and [facility] Coding Staff appreciate your assistance in clarifying documentation. Please respond to the clarification below the line at the bottom and electronically sign. The CDI & [facility] Coding staff will review the response and follow-up if needed. Please note: Queries are made part of the Legal Health Record. If you have any questions, please contact the author of this message via ITS. Dr. Curt Hall Altered Mental Status was documented in the ED note and Pulmonary notes and requires further specificity History/Risk Factors: GERD/Reflux, Hypertension, Musculoskeletal Disorder, Parkinsons, falls, anemia, lower GI bleed Clinical Indicators: 05/25 & 05/26 Pulmonary Consult and Progress Note: "Altered mental status with lethargy possibly healthcare acquired right lower lobe pneumonia versus bronchitis. Acute hypoxic respiratory failure" H&P: "Sepsis, anemia, Parkinsons" WBC 12.4/6.3, Hgb 14.4/12.1, Neutrophil 11.4/3.5, BUN 24/15 05/24 CXR:"Marked elevation of the right diaphragm. This could relate to paralysis. There is increased interstitial infiltrate right lung." Treatment: Zosyn 3.375 gm IVPB Q 8 hrs 1L 0.9%NS IVF Bolus followed by 100 cc/hr In your professional opinion, please clarify the etiology of the Altered Mental Status, if known. Metabolic Encephalopathy (specify Underlying Medical Illness) Septic Encephalopathy (specify underlying medical illness) Anoxic Encephalopathy (specify underlying medical illness) Other condition (please specify) Unable to determine (Last Revision: June 2017) MTDD
[2019-05-27] MEDS ORDERED: ACETAMINOPHEN TAB 325 MG TAB PO PRN (11:32)
--- NOTE | 2019-05-27 14:57 | P.PN ---
Subjective 84-year-old the male with history of Parkinson's admitted with right lower lobe pneumonia patient does have some atypical infiltrate because of which COVID-19 testing was ordered patient feels much better today I'll add azithromycin to read for atypical pneumonia and also order Mycoplasma IgM antibody along with the urinary Legionella antigen. Patient actually can be discharged but the senior care is waiting for COVID-19 testing before they can accept him. Constitutional: Denied any fatigue denied any fever. Cardio vascular: denied any chest pain, palpitations Gastrointestinal denied any nausea vomiting Pulmonary: Denied any shortness of breath cough Neurologic denied any new focal deficits All inpatient medications were reviewed and appropriate changes in these medications as dictated in the interval history and assessment and plan. Objective - Vital Signs Vital signs: Vital Signs Temp 97.7 F 05/27/19 05:00 Pulse 80 05/27/19 08:16 Resp 20 05/27/19 08:00 BP 149/74 05/27/19 05:00 Pulse Ox 95 05/27/19 05:00 Intake & Output 05/26/19 05/27/19 05/27/19 18:59 06:59 18:59 Intake Total 780 400 Output Total 100 Balance 780 400 -100 Intake: Oral 780 400 Output: Urine 100 Other: Voiding Method Incontinent Incontinent Incontinent # Voids 4 2 - Exam PHYSICAL EXAMINATION: GENERAL: The patient is alert and oriented x3, not in any acute distress. Well developed, well nourished. Patient has masklike face consistent with Parkinson's HEENT: Pupils are round and equally reacting to light. EOMI. No scleral icterus. No conjunctival pallor. Normocephalic, atraumatic. No pharyngeal erythema. No thyromegaly. CARDIOVASCULAR: S1 and S2 present. No murmurs, rubs, or gallops. PULMONARY: Chest is clear to auscultation, no wheezing or crackles. ABDOMEN: Soft, nontender, nondistended, normoactive bowel sounds. No palpable organomegaly. MUSCULOSKELETAL: No joint swelling or deformity. EXTREMITIES: No cyanosis, clubbing, or pedal edema. NEUROLOGICAL: Gross neurological examination did not reveal any focal deficits. SKIN: No rashes. - Labs CBC & Chem 7: 05/27/19 06:39 05/27/19 06:39 Labs: Abnormal Lab Results - Last 24 Hours (Table) 05/27/19 05/27/19 Range/Units 06:39 06:39 RBC 3.73 L (4.30-5.90) m/uL Hgb 12.1 L (13.0-17.5) gm/dL Hct 37.8 L (39.0-53.0) % MCV 101.4 H (80.0-100.0) fL Chloride 108 H (98-107) mmol/L Microbiology - Last 24 Hours (Table) 05/25/19 22:04 Blood Culture - Preliminary Blood No Growth after 24 hours Assessment and Plan Plan: Possible right lower lobe pneumonia atypical pneumonia. Continue with the Zosyn will add azithromycin. 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
[2019-05-27] MEDS: FOLIC ACID 1 MG TAB PO SCH (21:30)
[2019-05-27] MEDS: SERTRALINE 50 MG TAB PO SCH (21:30)
[2019-05-28] MEDS: CARBIDOPA-LEVODOPA ER 50-200MG 1 EACH TABLET.ER PO SCH ×3 (06:09→17:31)
[2019-05-28 06:24] LABS: Basophils % (A) 0 %; Eosinophils # (A) 0.3 k/uL (0-0.7); Eosinophils % (A) 6 %; HCT 39.1 % (39.0-53.0); HGB 12.8 gm/dL (13.0-17.5); Lymphocytes # (A) 1.3 k/uL (1.0-4.8); Lymphocytes % (A) 26 %; MCH 32.8 pg (25.0-35.0); MCHC 32.7 g/dL (31.0-37.0); MCV 100.3 fL (80.0-100.0); Mean Platelet Volume 7.9; Monocytes # (A) 0.4 k/uL (0-1.0); Monocytes % (A) 9 %; Neutrophils # (A) 2.9 k/uL (1.3-7.7); Neutrophils % (A) 56 %; Platelet Count 179 k/uL (150-450); RDW 12.5 % (11.5-15.5); WBC 5.2 k/uL (3.8-10.6)
[2019-05-28 06:38] LABS: African American GFR (CKD) >90 (>60 ml/min/1.73 sqM); Anion Gap 4 mmol/L; Blood Urea Nitrogen 13 mg/dL (9-20); Calcium 9.4 mg/dL (8.4-10.2); Carbon Dioxide 27 mmol/L (22-30); Chloride 108 mmol/L (98-107); Glucose 105 mg/dL (74-99); Non-African American GFR(CKD) 79 (>60 ml/min/1.73 sqM); Potassium 4.3 mmol/L (3.5-5.1); Sodium 139 mmol/L (137-145)
--- NOTE | 2019-05-28 07:50 | XR ---
EXAMINATION TYPE: XR chest 1V DATE OF EXAM: 05/28/2019 COMPARISON: 05/25/2019 HISTORY: Right lower lobe pneumonia TECHNIQUE: Single frontal view of the chest is obtained. FINDINGS: There is redemonstration of marked elevation of the right hemidiaphragm and right perihila r airspace disease. There is shifting of the mediastinum leftward and chronic interstitial lung deven ng prominence. Prominence of the right paratracheal stripe likely relates to rotation. No acute osseo us pathology. IMPRESSION: Stable exam from the prior of 05/25/2019 with marked right hemidiaphragm elevation and ri ght perihilar airspace disease, atelectasis versus pneumonia.
[2019-05-28] MEDS: FAMOTIDINE 20 MG/2 ML VIAL IV SCH ×2 (08:24→20:14)
[2019-05-28] MEDS: AZITHROMYCIN 500 MG TAB PO SCH (08:24)
[2019-05-28] MEDS: PIPERACILLIN-TAZOBACTAM 3.375 GM in SODIUM CHLORIDE 0.9% 100 ML IVPB SCH ×3 (08:24→23:01)
[2019-05-28] MEDS: HEPARIN SODIUM,PORCINE 5,000 UNIT/ML 1 ML VIAL SQ SCH ×2 (08:25→20:15)
[2019-05-28] MEDS: TAMSULOSIN 0.4 MG CAP.ER.24H PO SCH (09:00)
--- NOTE | 2019-05-28 10:26 | CDI ---
Documentation Clarification Form 2nd Request Date: 05/27/2019 10:58:00 AM From: Esther Hunt RN, CCDS Admit Date: 05/26/2019 12:03:00 AM Patient Name: Harrison Ponce Visit Number: [id number] ATTENTION: The Clinical Documentation Specialists (CDI) and [facility] Coding Staff appreciate your assistance in clarifying documentation. Please respond to the clarification below the line at the bottom and electronically sign. The CDI & [facility] Coding staff will review the response and follow-up if needed. Please note: Queries are made part of the Legal Health Record. If you have any questions, please contact the author of this message via ITS. Dr. Curt Hall Altered Mental Status was documented in the ED note and Pulmonary notes and requires further specificity History/Risk Factors: GERD/Reflux, Hypertension, Musculoskeletal Disorder, Parkinsons, falls, anemia, lower GI bleed Clinical Indicators: 05/25 & 05/26 Pulmonary Consult and Progress Note: "Altered mental status with lethargy possibly healthcare acquired right lower lobe pneumonia versus bronchitis. Acute hypoxic respiratory failure" H&P: "Sepsis, anemia, Parkinsons" WBC 12.4/6.3, Hgb 14.4/12.1, Neutrophil 11.4/3.5, BUN 24/15 05/24 CXR:"Marked elevation of the right diaphragm. This could relate to paralysis. There is increased interstitial infiltrate right lung." Treatment: Zosyn 3.375 gm IVPB Q 8 hrs 1L 0.9%NS IVF Bolus followed by 100 cc/hr In your professional opinion, please clarify the etiology of the Altered Mental Status, if known. Metabolic Encephalopathy (specify Underlying Medical Illness) Septic Encephalopathy (specify underlying medical illness) Anoxic Encephalopathy (specify underlying medical illness) Other condition (please specify) Unable to determine (Last Revision: June 2017) Metabolic encephalopathy suspected MTDD
[2019-05-28] MEDS ORDERED: ALBUTEROL NEBULIZED 2.5 MG/3 ML INHALATION PRN (10:33)
--- NOTE | 2019-05-28 11:18 | PN ---
PROGRESS NOTE PULMONARY/CRITICAL CARE PROGRESS NOTE: DATE OF SERVICE: May 28, 2019 This is an 84-year-old gentleman with a history of mental status changes, and possible right lower lobe pneumonia. The patient is doing reasonably well. From our perspective, the patient could be discharged soon. The patient seems to be relatively stable from the pulmonary standpoint. Apparently his COVID-19 testing is currently still pending though. He does have a history of chronic right hemidiaphragm elevation, hypertension, Parkinson disease, urinary incontinence, and previous UTI, and lower GI bleed. The patient is a DO NOT RESUSCITATE/DO NOT INTUBATE, which I believe is appropriate for him. The patient is about the same as he has been the last couple of days. PHYSICAL EXAMINATION: VITAL SIGNS: Current vital signs are reviewed. Temperature is 98, heart rate 85, respiratory rate 18, blood pressure 164/77, mean 106 and 3 L saturation 94%. GENERAL: Appears in no acute distress. HEENT: Examination is grossly unremarkable. Mucous membranes are moist. NECK: Supple. Full range of motion. No adenopathy. Neck veins are flat. CARDIOVASCULAR: Examination reveals regular rhythm and rate. Heart rate mid 80s. S1, S2 normal. Heart sounds are distant. LUNGS: Reveal a few scattered rhonchi. He does not really take deep breaths. There is no wheezes or crackle. ABDOMEN: Soft. Bowel sounds are noted. EXTREMITIES: Are intact. No significant cyanosis, clubbing, or edema. SKIN: Without rash. NEUROLOGIC: Examination is difficult to assess. He does move all 4 extremities. LABS: Labs are reviewed. White count 5.2, hemoglobin 12.8, hematocrit 39.1, platelet count 179,000. Sodium 139, potassium 4.3 chloride 108, CO2 of 27. Anion gap is 4. BUN and creatinine were 13 and 0.86. The rest of the labs look pretty good. Influenza studies are negative. Mycoplasma pneumonia titer in the normal range. COVID- 19 testing is currently pending. The most recent chest x-ray continues to show right-sided diaphragm elevation. Cannot say very much about what is going on in the right lower lobe. I do not see much. There may be some atelectasis. Microbiologic studies are all negative. MEDICATIONS: Medications are reviewed. He is on Zithromax, Zosyn and updrafts. ASSESSMENT: 1. Acute mental status changes, with lethargy and somnolence, much improved, which may relate to underlying pulmonary infection, pneumonia. 2. Possible healthcare acquired pneumonia involving the right lower lobe. 3. Febrile illness, of unclear etiology, COVID-19 test pending. 4. Acute hypoxemic respiratory failure secondary to the above, improved. 5. Chronic right hemidiaphragm elevation with volume loss. 6. History of benign essential hypertension. 7. History of Parkinson disease. 8. History of urinary incontinence and previous urinary tract infection. 9. History of lower gastrointestinal bleed. PLAN: The patient is on good antibiotics. The patient remains on Zithromax and also Zosyn. The patient is also receiving some updrafts. We will switch that to Ventolin HFA. Overall, his prognosis remains guarded. He is a NO CODE. He is very stable. Would consider evaluation for discharge planning in the near future. CHIKI / BETTINAN: [id number] /
--- NOTE | 2019-05-28 11:37 | P.PN ---
Subjective 84-year-old the male with history of Parkinson's admitted with right lower lobe pneumonia patient does have some atypical infiltrate because of which COVID-19 testing was ordered patient feels much better today I'll add azithromycin to read for atypical pneumonia and also order Mycoplasma IgM antibody along with the urinary Legionella antigen. Patient actually can be discharged but the half-way is waiting for COVID-19 testing before they can accept him. 05/28/2019 Patient is awaiting COVID-19. No overnight events. The chest x-ray did not show any significant abnormality patient remains on Zosyn which probably can be downgraded Constitutional: Denied any fatigue denied any fever. Cardio vascular: denied any chest pain, palpitations Gastrointestinal denied any nausea vomiting Pulmonary: Denied any shortness of breath cough Neurologic denied any new focal deficits All inpatient medications were reviewed and appropriate changes in these medications as dictated in the interval history and assessment and plan. Objective - Vital Signs Vital signs: Vital Signs Temp 98.7 F 05/28/19 08:00 Pulse 64 05/28/19 08:00 Resp 16 05/28/19 08:00 BP 161/81 05/28/19 08:00 Pulse Ox 94 L 05/28/19 08:00 Intake & Output 05/27/19 05/28/19 05/28/19 18:59 06:59 18:59 Intake Total 780 Output Total 100 1000 Balance 680 -1000 Weight 88 kg Intake: Oral 780 Output: Urine 100 1000 Other: Voiding Method Urinal Urinal Urinal # Voids 3 - Exam PHYSICAL EXAMINATION: GENERAL: The patient is alert and oriented x3, not in any acute distress. Well developed, well nourished. Patient has masklike face consistent with Parkinson's HEENT: Pupils are round and equally reacting to light. EOMI. No scleral icterus. No conjunctival pallor. Normocephalic, atraumatic. No pharyngeal erythema. No thyromegaly. CARDIOVASCULAR: S1 and S2 present. No murmurs, rubs, or gallops. PULMONARY: Chest is clear to auscultation, no wheezing or crackles. ABDOMEN: Soft, nontender, nondistended, normoactive bowel sounds. No palpable organomegaly. MUSCULOSKELETAL: No joint swelling or deformity. EXTREMITIES: No cyanosis, clubbing, or pedal edema. NEUROLOGICAL: Gross neurological examination did not reveal any focal deficits. SKIN: No rashes. - Labs CBC & Chem 7: 05/28/19 05:37 05/28/19 05:37 Labs: Abnormal Lab Results - Last 24 Hours (Table) 05/28/19 05/28/19 Range/Units 05:37 05:37 RBC 3.90 L (4.30-5.90) m/uL Hgb 12.8 L (13.0-17.5) gm/dL MCV 100.3 H (80.0-100.0) fL Chloride 108 H (98-107) mmol/L Glucose 105 H (74-99) mg/dL Microbiology - Last 24 Hours (Table) 05/25/19 22:04 Blood Culture - Preliminary Blood No Growth after 48 hours Assessment and Plan Plan: Possible right lower lobe pneumonia atypical pneumonia. Continue with the Zosyn will add azithromycin. 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
[2019-05-28] MEDS: cycloSPORINE 0.05% OPHTH 0.4 ML DROPERETTE BOTH EYES SCH ×2 (12:40→20:16)
[2019-05-28] MEDS: SODIUM CHLORIDE 0.9% 1,000 ML IV SCH (20:04)
[2019-05-28] MEDS: FOLIC ACID 1 MG TAB PO SCH (20:16)
[2019-05-28] MEDS: SERTRALINE 50 MG TAB PO SCH (20:16)
[2019-05-29] MEDS: SODIUM CHLORIDE 0.9% 1,000 ML IV SCH ×2 (04:37→17:12)
[2019-05-29 07:56] LABS: Basophils % (A) 0 %; Eosinophils # (A) 0.3 k/uL (0-0.7); Eosinophils % (A) 5 %; HGB 12.8 gm/dL (13.0-17.5); Lymphocytes # (A) 1.5 k/uL (1.0-4.8); Lymphocytes % (A) 31 %; MCH 32.5 pg (25.0-35.0); MCHC 32.8 g/dL (31.0-37.0); MCV 99.2 fL (80.0-100.0); Mean Platelet Volume 8.1; Monocytes # (A) 0.3 k/uL (0-1.0); Monocytes % (A) 7 %; Neutrophils # (A) 2.5 k/uL (1.3-7.7); Neutrophils % (A) 52 %; Platelet Count 194 k/uL (150-450); RBC 3.94 m/uL (4.30-5.90); RDW 12.4 % (11.5-15.5); WBC 4.8 k/uL (3.8-10.6)
[2019-05-29 08:06] LABS: African American GFR (CKD) >90 (>60 ml/min/1.73 sqM); Anion Gap 5 mmol/L; Blood Urea Nitrogen 13 mg/dL (9-20); Calcium 9.2 mg/dL (8.4-10.2); Carbon Dioxide 26 mmol/L (22-30); Chloride 108 mmol/L (98-107); Glucose 105 mg/dL (74-99); Non-African American GFR(CKD) 79 (>60 ml/min/1.73 sqM); Potassium 4.3 mmol/L (3.5-5.1); Sodium 139 mmol/L (137-145)
[2019-05-29] MEDS: TAMSULOSIN 0.4 MG CAP.ER.24H PO SCH (09:46)
[2019-05-29] MEDS: FAMOTIDINE 20 MG/2 ML VIAL IV SCH (09:48)
[2019-05-29] MEDS: HEPARIN SODIUM,PORCINE 5,000 UNIT/ML 1 ML VIAL SQ SCH (09:48)
[2019-05-29] MEDS: PIPERACILLIN-TAZOBACTAM 3.375 GM in SODIUM CHLORIDE 0.9% 100 ML IVPB SCH ×2 (09:49→17:12)
[2019-05-29] MEDS: CARBIDOPA-LEVODOPA ER 50-200MG 1 EACH TABLET.ER PO SCH ×3 (10:59→17:11)
[2019-05-29] MEDS: AZITHROMYCIN 500 MG TAB PO SCH (10:59)
[2019-05-29] MEDS: cycloSPORINE 0.05% OPHTH 0.4 ML DROPERETTE BOTH EYES SCH (11:00)
[2019-05-29 12:02] VITALS: TEMP 98.8
--- NOTE | 2019-05-29 12:12 | P.DS ---
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 Patient will continue on a short course of oral antibiotics in the form of Augmentin twice daily for the next 5 days and then may discontinue. Total time taken is 35 minutes. History of present illness This is an 84-year-old male with a history of Parkinson's who was recently admitted with right lower lobe pneumonia with some atypical infiltrate and was being closely monitored. Patient did have Covid19 testing done which was negative. Patient was continued on IV Zosyn and will continue on oral antibiotics in the form of Augmentin twice daily for the next 5 days and then may discontinue. Currently no reports of chest pain, worsening shortness of breath, or palpitations. Patient is afebrile. No reports of nausea or vomiting and patient is to continue with dysphagia 1 pured diet and one-on-one supervision. Patient will be discharged to [facility] today. On exam vital signs are stable. Temp is 98F, respirations are 18, blood pressure is 147/69, pulse is 60, oxygen saturation is 93% on 3 L via nasal cannula. Cardio S1, S2 are present. Respiratory shows diminished breath sounds at the bases with no wheezing or rhonchi noted. Abdomen is soft and nontender. Nervous system shows mild diffuse weakness Please refer to medication reconciliation sheet for a list of medications. Patient Condition at Discharge: Stable Plan - Discharge Summary Discharge Rx Participant: No New Discharge Prescriptions: New Amoxicillin/Potassium Clav [Augmentin 875-125 Tablet] 1 tab PO Q12HR 5 Days #10 tab Continue Sertraline HCl [Zoloft] 50 mg PO HS@2000 Sennosides [Senna] 8.6 mg PO HS PRN PRN Reason: Constipation Tamsulosin HCl [Flomax] 0.4 mg PO DAILY Acetaminophen Tab [Tylenol] 650 mg PO Q4H PRN PRN Reason: Pain Multivitamins, Thera [Multivitamin (formulary)] 1 tab PO HS cycloSPORINE 0.05% OPHTH SOLN [Restasis] 1 drop BOTH EYES BID Folic Acid 0.4 mg PO HS Ibuprofen [Motrin] 600 mg PO Q6HR PRN PRN Reason: Fever Acetaminophen Tab [Tylenol] 650 mg PO Q8H PRN PRN Reason: Pain Carbidopa/Levodopa [Sinemet CR 50-200 mg] 1 tab PO TID-W/MEALS Lansoprazole [Prevacid] 15 mg PO DAILY@0700 Ipratropium-Albuterol Nebulize [Duoneb 0.5 mg-3 mg/3 ml Soln] 3 ml INHALATION RT-Q6H PRN PRN Reason: Shortness Of Breath Bismuth Subsalicylate [Pepto-Bismol] 524 mg PO Q6H PRN PRN Reason: Loose Stool Discharge Medication List Sertraline HCl [Zoloft] 50 mg PO HS@199904/07/16 [History] Sennosides [Senna] 8.6 mg PO HS PRN 04/20/16 [History] Tamsulosin HCl [Flomax] 0.4 mg PO DAILY 08/05/16 [History] Acetaminophen Tab [Tylenol] 650 mg PO Q4H PRN 04/10/17 [History] Multivitamins, Thera [Multivitamin (formulary)] 1 tab PO HS 04/10/17 [History] Folic Acid 0.4 mg PO HS 01/02/18 [History] cycloSPORINE 0.05% OPHTH SOLN [Restasis] 1 drop BOTH EYES BID 01/02/18 [History] Acetaminophen Tab [Tylenol] 650 mg PO Q8H PRN 05/14/19 [History] Carbidopa/Levodopa [Sinemet CR 50-200 mg] 1 tab PO TID-W/MEALS 05/14/19 [History] Ibuprofen [Motrin] 600 mg PO Q6HR PRN 05/14/19 [History] Ipratropium-Albuterol Nebulize [Duoneb 0.5 mg-3 mg/3 ml Soln] 3 ml INHALATION RT-Q6H PRN 05/14/19 [History] Lansoprazole [Prevacid] 15 mg PO DAILY@0700 05/14/19 [History] Bismuth Subsalicylate [Pepto-Bismol] 524 mg PO Q6H PRN 05/26/19 [History] Amoxicillin/Potassium Clav [Augmentin 875-125 Tablet] 1 tab PO Q12HR 5 Days #10 tab 05/29/19 [Rx] Follow up Appointment(s)/Referral(s): Bruce Everett MD [Primary Care Provider] - 1-2 Days [facility], [NON-STAFF] - 1 Week Patient Instructions/Handouts: Pneumonia (DC) Activity/Diet/Wound Care/Special Instructions: [facility] Assist with meals, puree diet, aspiration precautions. Up with assist, fall precautions Continue with antibiotics for 5 days and then may discontinue. Discharge Disposition: TRANSFER TO SNF/ECF
--- NOTE | 2019-05-29 14:04 | PN ---
PROGRESS NOTE PULMONARY/CRITICAL CARE PROGRESS NOTE: DATE OF SERVICE: 05/29/2019 An 84-year-old male with a history of mental status changes and possible right lower lobe pneumonia. The patient is doing well. From the pulmonary perspective, the patient's respiratory status is stable. His COVID-19 serologically test apparently came back negative. He does have a history of chronic right diaphragm elevation, hypertension, Parkinson's disease, urinary incontinence, and previous UTI as well as lower GI bleed. The patient is a DO NOT INTUBATE/DO NOT RESUSCITATE patient. Clinically, he is doing well and we did mention to the nurses from the pulmonary standpoint, the patient could be discharged. Current vital signs are reviewed and include a temperature which is 98.8, heart rate is 60, respiratory rate 18, blood pressure 147/69 mean 95, saturations are 93% on 3 L nasal O2. Appears in no acute distress and certainly in no respiratory distress. HEENT: Examination is grossly unremarkable. Nasal O2 in place. NECK: Supple. Full range of motion. No adenopathy. Neck veins are flat. CARDIOVASCULAR: Examination reveals regular rhythm and rate. S1, S2 normal. LUNGS: Reveal diminished breath sounds. No wheezes or rhonchi. No crackles. ABDOMEN: Soft, bowel sounds are heard. EXTREMITIES: Intact. No edema. SKIN: Without rash. NEUROLOGIC: Examination is difficult to assess. Microbiologic studies thus far including sputum and blood sampling has been negative. White count 4.8, hemoglobin 12.8, hematocrit 39, platelet count normal. Sodium, potassium normal, chloride 108, CO2 is 26, anion gap is 5. BUN and creatinine were 13 and 0.85. Rest of the labs look pretty good. Again, serologic studies for COVID-19 were negative in this patient. Medications are reviewed. ASSESSMENT: 1. Acute mental status changes, somnolent, much improved, which may relate to underlying pulmonary infection/pneumonia. 2. Possible healthcare acquired pneumonia involving the right lower lobe, much improved. 3. Febrile illness, likely related to pneumonia as his COVID-19 serologic testing is negative. 4. Acute hypoxemic respiratory failure, secondary to the above, improved. 5. Chronic right hemidiaphragm elevation with volume loss. 6. History of benign essential hypertension. 7. History of Parkinson's disease. 8. History of urinary incontinence and previous urinary tract infection. 9. History of lower gastrointestinal bleed. PLAN: The patient is doing well. From the pulmonary perspective, he could be discharged out of the hospital. He likely will go to a fci. Will leave the discharge and discharge medications to the primary service. From the pulmonary service, the patient is doing well. Labs, x-rays and medications are all reviewed. MMODL / BETTINAN: [id number] /
[2019-05-29 14:57] VITALS: BP 145/67; PULSE 65; RESP 16
--- NOTE | 2019-06-02 08:17 | CDI ---
Documentation Clarification Form Date: 06/02/19 From: Natali Velasquez Phone: If you have a question about this query, please contact Sharmila Monson, Development Vice President at [phone] between 8am and 5pm. Admit Date: 05/25/29 Discharge Date: 05/29/19 Patient Name: FRACISCO GEE Visit Number: [id number] ATTENTION: The Clinical Documentation Specialists (CDI) and [facility] Coding Staff appreciate your assistance in clarifying documentation. Please respond to the clarification below the line at the bottom and electronically sign. The CDI & [facility] Coding staff will review the response and follow-up if needed. Please note: Queries are made part of the Legal Health Record. If you have any questions, please contact the author of this message via ITS. Dear Dr. Fuentes Farley, The diagnosis sepsis was documented in the ED Note, consult and H&P, but is not noted in subsequent documentation. History/Risk Factors: Pneumonia, acute respiratory failure w hypoxia, DM, dehydration, Parkinson's, HTN Clinical Indicators: P-117, R -36, 129/67, O2-89, T-102.9, lactic acid-1.2, CRP- 16.5, Procalcitonin-.22 Treatment: IV Zosyn, IV fluids Please clarify if the sepsis was Present/active/treated this admission Sepsis ruled out Other, please specify Clinically unable to determine my impression as per my note no additional documentation will be done MTDD
--- NOTE | 2019-06-17 06:49 | CDI ---
Documentation Clarification Form Date: 06/17/19 From: Natali Velasquez Phone: If you have a question about this query, please contact Sharmila Monson, Apricot Washer at [phone] between 8am and 5pm. Admit Date: 05/25/29 Discharge Date: 05/29/19 Patient Name: FRACISCO GEE Visit Number: [id number] ATTENTION: The Clinical Documentation Specialists (CDI) and [facility] Coding Staff appreciate your assistance in clarifying documentation. Please respond to the clarification below the line at the bottom and electronically sign. The CDI & [facility] Coding staff will review the response and follow-up if needed. Please note: Queries are made part of the Legal Health Record. If you have any questions, please contact the author of this message via ITS. Dear Dr. Lopez E Sheet, The diagnosis sepsis was documented in the ED Note, consult, PN 05/26 and H&P, but is not noted in subsequent documentation. History/Risk Factors: Pneumonia, acute respiratory failure w hypoxia, DM, dehydration, Parkinson's, HTN Clinical Indicators: P-117, R -36, 129/67, O2-89, T-102.9, lactic acid-1.2, CRP- 16.5, Procalcitonin-.22 Treatment: IV Zosyn, IV fluids, Tylenol Please clarify if the sepsis was Present/active/treated this admission Sepsis ruled out Other, please specify Clinically unable to determine Pt had SIRS and sepsis secondary to pna , present on admission MTDD
== END 2019-05-29 17:34 | DRG 871 ==
LOC: EC 21:54 → 6NMEDSUR 05-26 00:03 → 3SCARD 05-27 18:07 → 4SSUR 05-28 21:32
PROVIDERS: ADMIT Internal Medicine; ATTEND Internal Medicine
DX: A41.9 Sepsis, unspecified organism (principal); J18.9 Pneumonia, unspecified organism; J96.01 Acute respiratory failure with hypoxia; J98.6 Disorders of diaphragm; E11.9 Type 2 diabetes mellitus without complications; E86.0 Dehydration; G20 Parkinson's disease; Z20.828 Contact with and (suspected) exposure to other viral communicable diseases; Z66 Do not resuscitate; I10 Essential (primary) hypertension; K21.9 Gastro-esophageal reflux disease without esophagitis; M19.012 Primary osteoarthritis, left shoulder; M19.011 Primary osteoarthritis, right shoulder; K44.9 Diaphragmatic hernia without obstruction or gangrene; K57.90 Diverticulosis of intestine, part unspecified, without perforation or abscess without bleeding; R32 Unspecified urinary incontinence; G89.29 Other chronic pain; M54.5 Low back pain; D64.9 Anemia, unspecified; R29.6 Repeated falls; N42.9 Disorder of prostate, unspecified; Z79.899 Other long term (current) drug therapy; Z99.3 Dependence on wheelchair; Z87.01 Personal history of pneumonia (recurrent); Z86.19 Personal history of other infectious and parasitic diseases; Z98.890 Other specified postprocedural states; Z91.81 History of falling; Z87.19 Personal history of other diseases of the digestive system; Z86.73 Personal history of transient ischemic attack (TIA), and cerebral infarction without residual deficits; Z87.440 Personal history of urinary (tract) infections
CPT/HCPCS: 36415; 51701; 71045; 80048; 80053; 81003; 82607; 83605; 84145; 85025; 85610; 85730; 86140; 86738; 87040; 87070; 87205; 87449; 87502; 93005; 94640; 94760; 96360; 99285

== ENCOUNTER 2020-09-15 01:38 | Emergency (ER) | payer MEDICARE, OTHER ==
[2020-09-15 01:48] VITALS: TEMP 98.4
[2020-09-15] MEDS ORDERED: ACETAMINOPHEN TAB 325 MG TAB PO STA (02:12)
[2020-09-15] MEDS ORDERED: DIPH,PERTUS(ACELL)TETVAC-LF 0.5 ML VIAL IM ONE (02:12)
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
[2020-09-15 02:48] VITALS: BP 137/58; PULSE 66; RESP 17
--- NOTE | 2020-09-15 03:18 | CT ---
EXAMINATION TYPE: CT brain adalgisa wo con DATE OF EXAM: 09/15/2020 COMPARISON: 05/14/2019 HISTORY: Fall CT DLP: 1262 mGycm Automated exposure control for dose reduction was used. There is cerebral atrophy. There is no mass effect nor midline shift. There is no sign of intracrania l hemorrhage. There is some right parietal scalp soft tissue swelling. There is hypodensity in the pe riventricular white matter. There is 1 cm hypodensity right thalamus. There is 7 mm hypodensity anter ior left internal capsule. The cervical vertebra have normal alignment. There is multilevel cervical disc space narrowing with s pur formation. There is no compression fracture. The skull base is intact. There is normal aeration o f the mastoid sinuses. There is multilevel posterior endplate spur formation in the cervical spine an d multilevel cervical bony spinal stenosis. There is no paraspinal mass. IMPRESSION: Multilevel spondylotic changes and multilevel cervical bony spinal stenosis. No fracture. Cerebral atrophy and chronic small vessel ischemia. Bilateral old lacunar infarcts. No acute intracra nial abnormality. No change seen of the brain and cervical spine compared to old exam.
== END 2020-09-15 04:13 | disposition home or self-care (01) ==
LOC: EC 01:38
DX: S01.01XA Laceration without foreign body of scalp, initial encounter (principal); I10 Essential (primary) hypertension; K21.9 Gastro-esophageal reflux disease without esophagitis; M19.90 Unspecified osteoarthritis, unspecified site; G20 Parkinson's disease; Z79.1 Long term (current) use of non-steroidal anti-inflammatories (NSAID); Z79.899 Other long term (current) drug therapy; Z23 Encounter for immunization; W18.30XA Fall on same level, unspecified, initial encounter
CPT/HCPCS: 12002; 70450; 72125; 90471; 90715; 93005; 99285

== ENCOUNTER 2020-12-31 12:46 | Inpatient (IN) | payer MEDICARE, OTHER ==
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
[2020-12-31 13:50] LABS: Basophils % (A) 0 %; Eosinophils % (A) 0 %; HCT 41.5 % (39.0-53.0); HGB 12.7 gm/dL (13.0-17.5); Hypochromasia Slight; Lymphocytes # (A) 1.3 k/uL (1.0-4.8); Lymphocytes % (A) 13 %; MCH 32.9 pg (25.0-35.0); MCHC 30.5 g/dL (31.0-37.0); MCV 107.9 fL (80.0-100.0); Macrocytosis Moderate; Mean Platelet Volume 8.9; Monocytes # (A) 0.5 k/uL (0-1.0); Monocytes % (A) 5 %; Neutrophils # (A) 7.9 k/uL (1.3-7.7); Neutrophils % (A) 81 %; Platelet Count 349 k/uL (150-450); RBC 3.85 m/uL (4.30-5.90); RDW 12.8 % (11.5-15.5); WBC 9.8 k/uL (3.8-10.6)
--- NOTE | 2020-12-31 13:58 | XR ---
EXAMINATION TYPE: XR chest 1V portable DATE OF EXAM: 12/31/2020 COMPARISON: Chest x-ray 05/28/2019 HISTORY: Hypoxia and dysrhythmia TECHNIQUE: Single frontal view of the chest is obtained. FINDINGS: Patient is rotated. Right hemidiaphragm remains elevated, there is patchy density at right lung base. Cardiac mediastinal silhouette likely stable. No evident pneumothorax. Aorta is dense. Hi gh riding right shoulder may be due to chronic rotator cuff tear. IMPRESSION: Suspect diaphragmatic hernia with basilar atelectasis or scarring. Rotated exam.
[2020-12-31 14:00] LABS: Albumin 2.7 g/dL (3.5-5.0); Calcium 10.6 mg/dL (8.4-10.2); Potassium 4.4 mmol/L (3.5-5.1); Total Bilirubin 0.5 mg/dL (0.2-1.3); Total Protein 6.9 g/dL (6.3-8.2)
[2020-12-31 14:01] LABS: Magnesium 2.9 mg/dL (1.6-2.3)
[2020-12-31 14:14] LABS: INR 1.1 (<1.2); Partial Thromboplastin Time 28.6 sec (22.0-30.0); Prothrombin Time 11.6 sec (9.0-12.0)
[2020-12-31 14:16] LABS: T4, Free (Free Thyroxine) 1.05 ng/dL (0.78-2.19)
[2020-12-31 14:19] LABS: Appearance,Urine Clear (Clear); Bacteria,Urine Few /hpf; Bilirubin,Urine Negative (Negative); Blood,Urine Negative (Negative); Color,Urine Yellow; Glucose,Urine (UA) Negative (Negative); Ketones,Urine Negative (Negative); Leukocyte Esterase,Urine Moderate (Negative); Mucus,Urine Rare /hpf; Nitrite,Urine Negative (Negative); Protein,Urine Trace (Negative); RBC,Urine 1 /hpf (0-5); Specific Gravity,Urine 1.021 (1.001-1.035); Squamous Epithelial Cell,Urine <1 /hpf (0-4); Urobilinogen,Urine <2.0 mg/dL (<2.0); WBC,Urine 5 /hpf (0-5)
[2020-12-31] MEDS ORDERED: SODIUM CHLORIDE 0.9% 1,000 ML IV STA (14:34)
--- NOTE | 2020-12-31 15:19 | CT ---
EXAMINATION TYPE: CT angio chest DATE OF EXAM: 12/31/2020 COMPARISON: CT chest abdomen and pelvis 04/25/2016 HISTORY: Difficulty breathing CT DLP: 240.4 mGycm Automated exposure control for dose reduction was used. CONTRAST: CTA scan of the thorax is performed with IV Contrast, patient injected with 100 mL of Isovue 370, pul monary embolism protocol. MIP images are created and reviewed. 3D reconstructed images are created on an independent workstation and reviewed. 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 There is atelec tatic lung seen along the herniated contents of the abdomen posteriorly and medially, left lung is sp ared LUNGS: The lungs are grossly clear, there is no concerning parenchymal mass or nodule identified. T here is no pleural effusion or pneumothorax seen. The tracheobronchial tree is patent. AORTA: No additional significant abnormality is seen. MEDIASTINUM: There is satisfactory enhancement of the pulmonary artery and its branches, there is no CT evidence for pulmonary embolism. There are no greater than 1 cm hilar or mediastinal lymph nodes. No pericardial effusion is seen. OTHER: No additional significant abnormality is seen. IMPRESSION: THERE IS BEEN PROGRESSION OF WHAT MAY BE A DIAPHRAGMATIC HERNIA AND ELEVATION OF THE RIGHT HEMIDIAPHR AGM DESCRIBED. NO EVIDENCE OF PULMONARY EMBOLUS. PROBABLE ATELECTASIS, DIFFICULT TO EXCLUDE PNEUMO FAISAL.
[2020-12-31] MEDS ORDERED: NALOXONE 0.4 MG/ML 1 ML VIAL IV PRN (15:46)
[2020-12-31] MEDS ORDERED: LOPERAMIDE 2 MG CAP PO PRN (17:25)
[2020-12-31] MEDS ORDERED: IPRATROPIUM-ALBUTEROL 3 ML NEB INHALATION PRN (17:25)
[2020-12-31] MEDS ORDERED: SENNOSIDES 8.6 MG TAB PO PRN (17:25)
[2020-12-31] MEDS: CARBIDOPA-LEVODOPA ER 50-200MG 1 EACH TABLET.ER PO SCH (18:54)
[2020-12-31] MEDS: ACETAMINOPHEN TAB 325 MG TAB PO SCH (18:55)
[2020-12-31] MEDS: DEXTROSE 5%-0.45% NACL 1,000 ML IV SCH (18:55)
[2020-12-31] MEDS: ATORVASTATIN 40 MG TAB PO SCH (20:55)
[2020-12-31] MEDS: ASPIRIN 81 MG PO SCH (20:55)
[2020-12-31] MEDS: SERTRALINE 25 MG TAB PO SCH (20:55)
[2021-01-01] MEDS: ACETAMINOPHEN TAB 325 MG TAB PO SCH ×3 (02:41→16:11)
[2021-01-01] MEDS: CHOLECALCIFEROL 25 MCG (1000 IU) TABLET PO SCH (07:04)
[2021-01-01] MEDS: DEXTROSE 5%-0.45% NACL 1,000 ML IV SCH ×2 (07:04→21:32)
[2021-01-01] MEDS: CARBIDOPA-LEVODOPA ER 50-200MG 1 EACH TABLET.ER PO SCH ×3 (07:04→16:12)
[2021-01-01] MEDS: INSULIN ASPART (NovoLOG) 100 UNIT/ML VIAL SQ SCH ×4 (09:14→21:41)
[2021-01-01] MEDS: TAMSULOSIN 0.4 MG CAP.ER.24H PO SCH (09:20)
[2021-01-01] MEDS: PANTOPRAZOLE 40 MG TABLET PO SCH (09:20)
[2021-01-01] MEDS: DEXTROSE 5% IN WATER 1,000 ML IV SCH ×2 (09:21→16:13)
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
[2021-01-01 10:34] LABS: ALT 15 U/L (4-49); AST 48 U/L (17-59); African American GFR (CKD) >90 (>60 ml/min/1.73 sqM); Albumin 2.4 g/dL (3.5-5.0); Alkaline Phosphatase 104 U/L (38-126); Anion Gap 5 mmol/L; Blood Urea Nitrogen 39 mg/dL (9-20); Calcium 10.1 mg/dL (8.4-10.2); Carbon Dioxide 29 mmol/L (22-30); Chloride 117 mmol/L (98-107); Glucose 172 mg/dL (74-99); Non-African American GFR(CKD) 83 (>60 ml/min/1.73 sqM); Potassium 3.8 mmol/L (3.5-5.1); Sodium 151 mmol/L (137-145); Total Bilirubin 0.5 mg/dL (0.2-1.3); Total Protein 6.4 g/dL (6.3-8.2)
[2021-01-01 12:02] LABS: Glucose,Whole Blood 186 mg/dL (75-99)
[2021-01-01 13:58] VITALS: BMI 17.5
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
[2021-01-01] MEDS: METOPROLOL TARTRATE 25 MG TAB PO SCH ×2 (16:12→21:42)
[2021-01-01 16:50] LABS: Glucose,Whole Blood 133 mg/dL (75-99)
[2021-01-01 20:37] LABS: Glucose,Whole Blood 148 mg/dL (75-99)
[2021-01-01] MEDS: ASPIRIN 81 MG PO SCH (21:41)
[2021-01-01] MEDS: SERTRALINE 25 MG TAB PO SCH (21:41)
[2021-01-01] MEDS: ATORVASTATIN 40 MG TAB PO SCH (21:42)
[2021-01-02] MEDS: ACETAMINOPHEN TAB 325 MG TAB PO SCH ×3 (00:39→17:12)
[2021-01-02] MEDS: DEXTROSE 5% IN WATER 1,000 ML IV SCH ×3 (00:49→20:26)
[2021-01-02 06:01] LABS: Glucose,Whole Blood 125 mg/dL (75-99)
[2021-01-02] MEDS: INSULIN ASPART (NovoLOG) 100 UNIT/ML VIAL SQ SCH ×4 (06:12→20:25)
[2021-01-02] MEDS: CARBIDOPA-LEVODOPA ER 50-200MG 1 EACH TABLET.ER PO SCH ×3 (06:47→17:12)
[2021-01-02] MEDS: CHOLECALCIFEROL 25 MCG (1000 IU) TABLET PO SCH (06:47)
--- NOTE | 2021-01-02 08:38 | P.PN ---
Subjective 85-year-old male with extensive poor functionality with contractors multiple sclerosis detention resident came in because of a altered mental status. Patient is found to be dehydrated with highly elevated serum sodium of 159. Patient creatinine is although 0.97 his normal creatinine should be around 0.2. Patient is a much better now patient is much less confused. Unable to obtain any of the history from the patient as chronic speech abnormality. Patient doesn't appear to be confused when I valid the patient. Patient doesn't have any bedsores at this time patient apparently ambulates with help at this is as per the nursing staff, we'll in the process of getting information regarding his baseline functional status from the detention. 01/02/2021 Patient looks much better today. Patient is still full code. Patient's serum s odium and chloride improved patient will be continued on D5 water today and possibility of discharge tomorrow. Review of systems: Patient feels well but unable to obtain all review of systems because of his speech problems All inpatient medications were reviewed and appropriate changes in these m edications as dictated in the interval history and assessment and plan. PHYSICAL EXAMINATION: GENERAL: The patient is alert and unable to assess orientation, not in any acute distress. Well developed, well nourished. HEENT: Pupils are round and equally reacting to light. EOMI. No scleral icterus. No conjunctival pallor. Normocephalic, atraumatic. No pharyngeal erythema. No thyromegaly. CARDIOVASCULAR: S1 and S2 present. No murmurs, rubs, or gallops. PULMONARY: Chest is clear to auscultation, no wheezing or crackles. ABDOMEN: Soft, nontender, nondistended, normoactive bowel sounds. No palpable organomegaly. MUSCULOSKELETAL: No joint swelling or deformity. EXTREMITIES: No cyanosis, clubbing, or pedal edema. NEUROLOGICAL: Significant generalized weakness and muscle atrophy contractors SKIN: No rashes. Assessment and plan -Metabolic encephalopathy: Secondary to dehydration patient was started on D5 water. -Hypovolemic hyponatremia: D5 water as mentioned above. secondary to dehydration improving -Acute renal failure secondary to prerenal azotemia secondary to dehydration -Hypercalcemia: Improved -Gastric esophageal reflux disease -Mild protein calorie malnutrition -Hypertension -Benign prostatic hypertrophy Patient overall functionality is poor patient is more appropriate for palliative care DVT prophylaxis: Lovenox Objective - Vital Signs Vital signs: Vital Signs Temp 97.8 F 01/02/21 04:00 Pulse 73 01/02/21 04:00 Resp 17 01/02/21 04:00 BP 101/47 01/02/21 04:00 Pulse Ox 93 L 01/02/21 04:00 Intake & Output 01/01/21 01/02/21 01/02/21 18:59 06:59 18:59 Intake Total 1500 900 Output Total 500 Balance 1500 900 -500 Weight 55.5 kg 65 kg Intake: Intake, IV Titration 600 Amount Dextrose 5% in Water 1, 600 000 ml @ 100 mls/hr IV . Q10H STEPHEN Rx#:[id number] Oral 1500 300 Output: Urine 500 Straight 500 Other: # Voids 1 3 - Labs CBC & Chem 7: 12/31/20 13:36 01/01/21 09:31 Labs: Abnormal Lab Results - Last 24 Hours (Table) 01/01/21 01/01/21 01/01/21 Range/Units 09:31 12:01 16:49 Sodium 151 H (137-145) mmol/L Chloride 117 H (98-107) mmol/L BUN 39 H (9-20) mg/dL Glucose 172 H (74-99) mg/dL POC Glucose (mg/dL) 186 H 133 H (75-99) mg/dL Albumin 2.4 L (3.5-5.0) g/dL 01/01/21 01/02/21 Range/Units 20:36 05:59 Sodium (137-145) mmol/L Chloride (98-107) mmol/L BUN (9-20) mg/dL Glucose (74-99) mg/dL POC Glucose (mg/dL) 148 H 125 H (75-99) mg/dL Albumin (3.5-5.0) g/dL
[2021-01-02 09:25] LABS: African American GFR (CKD) >90 (>60 ml/min/1.73 sqM); Anion Gap 3 mmol/L; Blood Urea Nitrogen 31 mg/dL (9-20); Calcium 9.6 mg/dL (8.4-10.2); Carbon Dioxide 26 mmol/L (22-30); Chloride 114 mmol/L (98-107); Glucose 130 mg/dL (74-99); Non-African American GFR(CKD) 85 (>60 ml/min/1.73 sqM); Potassium 3.9 mmol/L (3.5-5.1); Sodium 143 mmol/L (137-145)
[2021-01-02] MEDS: DEXTROSE 5%-0.45% NACL 1,000 ML IV SCH ×3 (09:37→20:25)
[2021-01-02] MEDS: ENOXAPARIN 30 MG/0.3 ML SYRINGE SQ SCH (09:39)
[2021-01-02] MEDS: TAMSULOSIN 0.4 MG CAP.ER.24H PO SCH (09:40)
[2021-01-02] MEDS: METOPROLOL TARTRATE 25 MG TAB PO SCH ×2 (09:40→20:25)
[2021-01-02] MEDS: PANTOPRAZOLE 40 MG TABLET PO SCH (09:40)
--- NOTE | 2021-01-02 11:31 | PN ---
PROGRESS NOTE Mr. Ponce is an 85-year-old male who presented from [facility]. He has a history of Parkinson's disease, CVA. He is nonverbal. He had a run of wide-complex tachycardia without any recurrence. There is no change in his status. He has no evidence of tachyarrhythmia. Hemodynamically he has been stable. He was dehydrated and hyponatremic on presentation. He continues to be at this time on low-dose aspirin, Lipitor 40 mg daily. He is receiving IV fluids. He is on insulin, metoprolol tartrate 25 twice a day. PHYSICAL EXAMINATION: Blood pressure 109/50 with a heart rate of 70. LUNGS: Clear. HEART: Regular rate and rhythm. S1, S2. No S3, with systolic murmur. No diastolic murmur. No rub. ABDOMEN: Soft, nontender. EXTREMITIES: No edema. LAB DATA: BUN and creatinine 31 and 0.7, improved compared to admission. His potassium is 3.9 and his sodium is 143; it was 159 on presentation. IMPRESSION: 1. Dehydration with hyperkalemia, resolved. 2. Episode of wide-complex tachycardia, most likely related to electrolyte imbalance. 3. History of cerebrovascular accident. 4. Acute renal injury, improved. RECOMMENDATIONS: From the cardiac standpoint, will continue on the present dose of beta cesar. An echocardiogram with Doppler will be obtained. If there are no significant changes, then no further workup will be needed. CHIKI / AMADOR: [id number] /
[2021-01-02 11:37] LABS: Glucose,Whole Blood 142 mg/dL (75-99)
[2021-01-02 16:45] LABS: Glucose,Whole Blood 138 mg/dL (75-99)
[2021-01-02 20:07] LABS: Glucose,Whole Blood 119 mg/dL (75-99)
[2021-01-02] MEDS: ASPIRIN 81 MG PO SCH (20:24)
[2021-01-02] MEDS: SERTRALINE 25 MG TAB PO SCH (20:24)
[2021-01-02] MEDS: ATORVASTATIN 40 MG TAB PO SCH (20:25)
[2021-01-03] MEDS: ACETAMINOPHEN TAB 325 MG TAB PO SCH ×2 (00:46→10:48)
[2021-01-03] MEDS: CARBIDOPA-LEVODOPA ER 50-200MG 1 EACH TABLET.ER PO SCH ×2 (06:16→15:02)
[2021-01-03] MEDS: CHOLECALCIFEROL 25 MCG (1000 IU) TABLET PO SCH (06:16)
[2021-01-03] MEDS: INSULIN ASPART (NovoLOG) 100 UNIT/ML VIAL SQ SCH ×2 (06:21→12:46)
[2021-01-03 06:22] LABS: Glucose,Whole Blood 114 mg/dL (75-99)
[2021-01-03] MEDS: PANTOPRAZOLE 40 MG TABLET PO SCH (10:45)
[2021-01-03] MEDS: METOPROLOL TARTRATE 25 MG TAB PO SCH (10:45)
[2021-01-03] MEDS: TAMSULOSIN 0.4 MG CAP.ER.24H PO SCH (10:45)
[2021-01-03] MEDS: ENOXAPARIN 30 MG/0.3 ML SYRINGE SQ SCH (10:45)
[2021-01-03] MEDS: DEXTROSE 5% IN WATER 1,000 ML IV SCH (10:48)
--- NOTE | 2021-01-03 11:01 | ECHOF ---
Referral Reason:VT MEASUREMENTS -------- HEIGHT: 180.3 cm WEIGHT: 64.4 kg BP: RVIDd: 3.3 cm (< 3.3) IVSd: 1.3 cm (0.6 - 1.1) LVIDd: 4.2 cm (3.9 - 5.3) LVPWd: 1.3 cm (0.6 - 1.1) IVSs: 2.2 cm LVIDs: 1.8 cm LVPWs: 1.9 cm LAESV Index (A-L): 39.91 ml/m Ao Diam: 3.5 cm (2.0 - 3.7) AV Cusp: 1.1 cm (1.5 - 2.6) LA Diam: 4.4 cm (2.7 - 3.8) MV EXCURSION: 16.659 mm (> 18.000) MV EF SLOPE: 116 mm/s (70 - 150) EPSS: 0.6 cm MV E Nick: 0.89 m/s MV A Nick: 0.79 m/s MV E/A Ratio: 1.13 AV maxP.98 mmHg AV meanP.20 mmHg RAP: 5.00 mmHg RVSP: 42.57 mmHg FINDINGS -------- This was a technically good study. The left ventricular size is normal. There is mild concentric left ventricular hypertrophy. Overa ll left ventricular systolic function is normal with, an EF between 55 - 60 %. The right ventricle is mildly enlarged. LA is moderately dilated 34-39 ml/m2 The right atrial size is normal. Aortic valve is trileaflet and is mildly thickened. There is no evidence of aortic regurgitation. There is mild aortic stenosis present. Peak/mean gradient across the Aortic Valve is 13.98mmHg / 8 .20mmHg. The mitral valve is normal. The mitral valve leaflets are mildly thickened. [id number]-rgpiesns mitr al regurgitation is present. The tricuspid valve appears structurally normal. Mild tricuspid regurgitation present. There is m ild pulmonary hypertension. The right ventricular systolic pressure, as measured by Doppler, is 42. 57mmHg. There is no pulmonic regurgitation present. The aortic root size is normal. IVC Not well visulized. There is no pericardial effusion. CONCLUSIONS -------- 1. The left ventricular size is normal. 2. There is mild concentric left ventricular hypertrophy. 3. Overall left ventricular systolic function is normal with, an EF between 55 - 60 %. 4. The right ventricle is mildly enlarged. 5. LA is moderately dilated 34-39 ml/m2 6. Aortic valve is trileaflet and is mildly thickened. 7. There is mild aortic stenosis present. 8. Peak/mean gradient across the Aortic Valve is 13.98mmHg / 8.20mmHg. 9. The mitral valve leaflets are mildly thickened. 10. Hywl-aq-xyrefrab mitral regurgitation is present. 11. Mild tricuspid regurgitation present. 12. There is mild pulmonary hypertension. 13. The right ventricular systolic pressure, as measured by Doppler, is 42.57mmHg. 14. There is no pericardial effusion. VOIP TECHNICIAN: Flores Solano RDCS
[2021-01-03 11:10] VITALS: RESP 18
[2021-01-03 11:44] LABS: Glucose,Whole Blood 119 mg/dL (75-99)
--- NOTE | 2021-01-03 13:23 | P.DS ---
Providers Date of admission: 12/31/20 15:46 Attending physician: Susi Villegas Consults: 12/31/20 15:46 Consult Physician Urgent Consulting Provider: Lauro Almendarez Consult Reason/Comments: Dysrhythmia Do you want consulting provider notified?: Yes [facility]: 85-year-old male with extensive poor functionality with contractors multiple sclerosis [facility] resident came in because of a altered mental status. Patient is found to be dehydrated with highly elevated serum sodium of 159. Patient creatinine is although 0.97 his normal creatinine should be around 0.2. Patient is a much better now patient is much less confused. Unable to obtain any of the history from the patient as chronic speech abnormality. Patient doesn't appear to be confused when I valid the patient. Patient doesn't have any bedsores at this time patient apparently ambulates with help at this is as per the nursing staff, we'll in the process of getting information regarding his baseline functional status from the [facility]. 01/02/2021 Patient looks much better today. Patient is still full code. Patient's serum sodium and chloride improved patient will be continued on D5 water today and possibility of discharge tomorrow. 01/03/2021 Patient's serum sodium improved significantly with D5 water. Patient the function and is externally poor because of his MS patient is mostly bedbound patient is more appropriate for palliative care hospice patient will be discharged back to subacute rehabilitation. Patient had episodes of wide complex tachycardia secondary to vertebral arteries which improved cardio U valid the patient accordingly showed normal ejection fraction recommended metoprolol at which patient is being discharged. PHYSICAL EXAMINATION: GENERAL: The patient is alert and unable to assess orientation, not in any acute distress. Thin built cachectic male HEENT: Pupils are round and equally reacting to light. EOMI. No scleral icterus. No conjunctival pallor. Normocephalic, atraumatic. No pharyngeal erythema. No thyromegaly. CARDIOVASCULAR: S1 and S2 present. No murmurs, rubs, or gallops. PULMONARY: Chest is clear to auscultation, no wheezing or crackles. ABDOMEN: Soft, nontender, nondistended, normoactive bowel sounds. No palpable organomegaly. MUSCULOSKELETAL: No joint swelling or deformity. EXTREMITIES: No cyanosis, clubbing, or pedal edema. NEUROLOGICAL: Significant generalized weakness and muscle atrophy contractors SKIN: No rashes. Assessment and plan -Metabolic encephalopathy: Secondary to dehydration resolved mental status at his baseline -Episodes of ventricular tachycardia management as mentioned above -Hypovolemic hypernatremia: Improved with IV fluids -Acute renal failure secondary to prerenal azotemia secondary to dehydration -Hypercalcemia: Improved -Gastric esophageal reflux disease -Moderate protein calorie malnutrition -Hypertension -Benign prostatic hypertrophy Patient overall functionality is poor patient is more appropriate for palliative care Plan - Discharge Summary Discharge Rx Participant: No New Discharge Prescriptions: New Metoprolol Tartrate [Lopressor] 25 mg PO BID tab Continue Sennosides [Senna] 8.6 mg PO DAILY PRN PRN Reason: Constipation Tamsulosin HCl [Flomax] 0.4 mg PO DAILY Acetaminophen Tab [Tylenol] 650 mg PO Q4H PRN PRN Reason: Pain Carbidopa/Levodopa [Sinemet CR 50-200 mg] 1 tab PO TID@0730,1200,1730 Ipratropium-Albuterol Nebulize [Duoneb 0.5 mg-3 mg/3 ml Soln] 3 ml INHALATION RT-Q6H PRN PRN Reason: Shortness Of Breath Aspirin EC [Ecotrin Low Dose] 81 mg PO HS Loperamide [Imodium] 2 mg PO BID PRN PRN Reason: Loose Stool Acetaminophen [Tylenol Arthritis] 650 mg PO Q8H Sertraline [Zoloft] 12.5 mg PO HS Omeprazole 20 mg PO DAILY Magnesium Oxide 400 mg PO HS Cholecalciferol [Vitamin D3 (25 Mcg = 1000 Iu)] 25 mcg PO DAILY@0700 Atorvastatin [Lipitor] 40 mg PO HS Healthshake 1 can PO BID Discontinued Levofloxacin [Levaquin] 500 mg PO DAILY Ibuprofen [Motrin] 400 mg PO Q8H Discharge Medication List Sennosides [Senna] 8.6 mg PO DAILY PRN 04/20/16 [History] Tamsulosin HCl [Flomax] 0.4 mg PO DAILY 08/05/16 [History] Acetaminophen Tab [Tylenol] 650 mg PO Q4H PRN 05/14/19 [History] Carbidopa/Levodopa [Sinemet CR 50-200 mg] 1 tab PO TID@0730,1200,1730 05/14/19 [History] Ipratropium-Albuterol Nebulize [Duoneb 0.5 mg-3 mg/3 ml Soln] 3 ml INHALATION RT-Q6H PRN 05/14/19 [History] Acetaminophen [Tylenol Arthritis] 650 mg PO Q8H 12/31/20 [History] Aspirin EC [Ecotrin Low Dose] 81 mg PO HS 12/31/20 [History] Atorvastatin [Lipitor] 40 mg PO HS 12/31/20 [History] Cholecalciferol [Vitamin D3 (25 Mcg = 1000 Iu)] 25 mcg PO DAILY@0700 12/31/20 [History] Healthshake 1 can PO BID 12/31/20 [History] Loperamide [Imodium] 2 mg PO BID PRN 12/31/20 [History] Magnesium Oxide 400 mg PO HS 12/31/20 [History] Omeprazole 20 mg PO DAILY 12/31/20 [History] Sertraline [Zoloft] 12.5 mg PO HS 12/31/20 [History] Metoprolol Tartrate [Lopressor] 25 mg PO BID tab 01/03/21 [Rx] Follow up Appointment(s)/Referral(s): Bruce Everett MD [Primary Care Provider] - 1-2 Days Discharge Disposition: TRANSFER TO SNF/ECF
--- NOTE | 2021-01-03 14:49 | P.PN ---
Subjective Progress Note Date: 01/03/21 HISTORY OF PRESENT ILLNESS: An 85-year-old gentleman who resides in an extended care facility and follows with Dr. Everett for primary. He has a history of Parkinson's disease, previous CVA, hypertension, GERD, previous UTI and sepsis, hypertension. The patient is nonverbal and therefore the HPI was obtained from the chart and nursing staff and review of systems was deferred. Was sent to the emergency department with low oxygen saturation. Was noted to have brief runs of PAT therefore we were consulted to see the patient. CT of the chest showed progression of what may be a diaphragmatic hernia and elevation of the right hemidiaphragm, no evidence of pulmonary embolus, probable atelectasis, difficult to exclude pneumonia. Chest x-ray showed suspected diaphragmatic hernia with basilar atelectasis or scarring. Troponins on admission showed sodium 159, BUN 50, creatinine 0.97, potassium 4.4, magnesium 2.9 troponin 0.018 and NT proBNP of 873 with normal thyroid studies. Upon examination the patient is resting comfortably in bed vital signs are stable. He did have a episode of what appears to be probable ventricular tachycardia lasting about 24 seconds with no signs or symptoms noted from nursing staff. 01/03/2021 Patient examined this morning at the bedside. Patient appears to be resting comfortably. Echocardiogram completed reveals ejection fraction 55-60%, mild aortic stenosis, [id number] mitral regurgitation, mild tricuspid regurgi tation, and mild pulmonary hypertension. Vital signs are stable. No further episodes of ventricular tachycardia PHYSICAL EXAM: VITAL SIGNS: Reviewed. GENERAL: Well-developed in no acute distress. NECK: Supple. No JVD or thyromegaly LUNGS: Respirations even and unlabored. Lungs essentially clear to auscultation bilaterally. HEART: Regular rate and rhythm. S1 and S2 heard. Systolic murmur noted. EXTREMITIES: Normal range of motion. No clubbing or cyanosis. Peripheral p ulses intact. No lower extremity edema ASSESSMENT: #1 ventricular tachycardia #2 dehydration #3 hypovolemic hypernatremia #4 acute kidney injury #5 hypercalcemia #6 hypertension PLAN: Continue current cardiac medications Patient is stable for discharge from a cardiac standpoint We will sign off. Please reconsult if needed. Nurse practitioner note has been reviewed by physician. Signing provider agrees with the documented findings, assessment, and plan of care. Objective - Vital Signs Vital signs: Vital Signs Temp 98.1 F 01/03/21 08:00 Pulse 58 L 01/03/21 08:00 Resp 18 01/03/21 08:00 BP 100/58 01/03/21 08:00 Pulse Ox 95 01/03/21 08:00 Intake & Output 01/02/21 01/03/21 01/03/21 18:59 06:59 18:59 Intake Total 520 Output Total 500 1000 Balance 20 -1000 Weight 64.5 kg Intake: Oral 520 Output: Urine 500 1000 Straight 500 500 Other: Voiding Method Diaper Diaper # Voids 0 1 # Bowel Movements 0 1 - Labs CBC & Chem 7: 12/31/20 13:36 01/02/21 08:06 Labs: Abnormal Lab Results - Last 24 Hours (Table) 01/02/21 01/02/21 01/03/21 Range/Units 16:43 20:05 06:21 POC Glucose (mg/dL) 138 H 119 H 114 H (75-99) mg/dL 01/03/21 Range/Units 11:41 POC Glucose (mg/dL) 119 H (75-99) mg/dL
[2021-01-03 15:17] VITALS: PULSE 62
[2021-01-03 15:31] VITALS: BP 142/68; TEMP 97.8
== END 2021-01-03 15:48 | DRG 640 ==
LOC: EC 12:46 → 3SCARD 15:46
PROVIDERS: ADMIT Internal Medicine; ATTEND Internal Medicine
DX: E86.0 Dehydration (principal); G93.41 Metabolic encephalopathy; I47.2 Ventricular tachycardia; E44.0 Moderate protein-calorie malnutrition; N17.9 Acute kidney failure, unspecified; E87.0 Hyperosmolality and hypernatremia; E87.1 Hypo-osmolality and hyponatremia; E83.52 Hypercalcemia; E86.1 Hypovolemia; E87.5 Hyperkalemia; G20 Parkinson's disease; G35 Multiple sclerosis; I10 Essential (primary) hypertension; I27.20 Pulmonary hypertension, unspecified; K21.9 Gastro-esophageal reflux disease without esophagitis; N40.0 Benign prostatic hyperplasia without lower urinary tract symptoms; Z79.899 Other long term (current) drug therapy; Z86.73 Personal history of transient ischemic attack (TIA), and cerebral infarction without residual deficits; Z87.440 Personal history of urinary (tract) infections; Z99.3 Dependence on wheelchair; M19.90 Unspecified osteoarthritis, unspecified site
CPT/HCPCS: 36415; 71045; 71275; 80048; 80053; 81001; 83735; 83880; 84439; 84443; 84481; 84484; 85025; 85379; 85610; 85730; 87635; 93005; 93306; 99285